=== PATIENT | male | born 1940 | race Caucasian/White ===

== ENCOUNTER → 2018-09-01 | Day surgery (SDC) | payer MEDICARE, OTHER ==
[~2018-09-01] MED LIST: ATORVASTATIN CA20 MG PO; BUMETANIDE1 MG PO; CALCIUM 500+D1 EACH PO; COUMADIN5 MG PO; DOXAZOSIN MESYLA2 MG PO; FENTANYL CITRATE/PF 100MCG/2 ML INJ ONE; FINASTERIDE5 MG PO; GLIMEPIRIDE2 MG PO; LANSOPRAZOLE30 MG PO; LEVEMIR100 UNIT/1 SC; LISINOPRIL10 MG PO; METFORMIN HCL500 MG PO; METOLAZONE10 MG PO; MIDAZOLAM HCL 2 MG/2 ML VIAL ONE; OR PHACO EYE KIT ONE; POTASSIUM CHLO20 ME1 PO; PREOP PHACO EYE KIT ONE; TAMSULOSIN HCL0.4 MG PO; VICTOZA 3-0.6 MG/0.1 SC; VICTOZA SC; WARFARIN SODIU2.5 MG PO
--- OUTSIDE RECORDS SUMMARY | 2018-09-01 10:44 | XMS REPORT | Continuity of Care Document ---
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 Name Role Phone [employer] Information Spare to Share Unavailable Unavailable Problems Problem Status Onset Date Classification Date Reported Comments Source SPLIT NIGHT 30009 Active 12/29/[address] [facility] [id number] Active 05/12/[address] [facility] FIRST [id number] Active 04/07/[address] [facility] OBSTRUCTIVE SLEEP APNEA (ADULT) (PEDIATR Active [facility] Medications No Data Provided for This Section Allergies, Adverse Reactions, Alerts No Known Medication Allergies Immunizations No Data Provided for This Section Results No Data Provided for This Section Pathology Reports No Data Provided for This Section Diagnostic Reports No Data Provided for This Section Consultation Notes No Data Provided for This Section Discharge Summaries No Data Provided for This Section History and Physicals No Data Provided for This Section Vital Signs No Data Provided for This Section Encounters Location Location Details Encounter Type Encounter Number Reason For Visit Attending Provider ADM Date DC Date Status Source [facility] Outpatient [id number] Non Physician 04/12/2015 04/12/2015 [facility] Outpatient [id number] Stephen Bryan 05/14/2015 05/14/2015 [facility] Outpatient [id number] Stephen Randi 01/02/2017 01/02/[address] [facility] Procedures No Data Provided for This Section Assessment and Plan No Data Provided for This Section Plan of Care No Data Provided for This Section Social History Social History Date Source No data available for this section 01/02/[address] [facility] Family History No Data Provided for This Section Advance Directives No Data Provided for This Section Functional Status No Data Provided for This Section
--- OUTSIDE RECORDS SUMMARY | 2018-09-01 10:45 | XMS REPORT | Summary of Care ---
Author Author [facility] Organization [facility] Address Unknown Phone Unavailable Encounter HQ Encntr_alias(FIN) [id number] Date(s): 01/01/17 - 01/01/17 [facility] [address] [place] [address]- [phone] Discharge Disposition: Home or Self Care Attending Physician: Stephen Bryan MD Referring Physician: Stephen Bryan MD Vital Signs No data available for this section Problem List No data available for this section Allergies, Adverse Reactions, Alerts No data available for this section Medications No data available for this section Results No data available for this section Immunizations No data available for this section Procedures No data available for this section Social History No data available for this section Assessment and Plan No data available for this section
--- OUTSIDE RECORDS SUMMARY | 2018-09-01 10:46 | XMS REPORT | Summary of Care ---
Author Author [facility] Organization [facility] Address Unknown Phone Unavailable Encounter HQ Julio Cntr_katie(JUHI) [id number] Date(s): 04/11/15 - 04/11/15 [facility] [address] [place] [address]- Discharge Disposition: Home Attending Physician: Physician, Non Associated MD Vital Signs No data available for [...]
--- OUTSIDE RECORDS SUMMARY | 2018-09-01 10:46 | XMS REPORT | Summary of Care ---
Author Author [facility] Organization [facility] Address Unknown Phone Unavailable Encounter HQ Encntr_alias(JUHI) [id number] Date(s): 05/13/15 - 05/13/15 [facility] [address] [place] [address]- Discharge Disposition: Home Attending Physician: Stephen Bryan MD Referring Physician: [...]
--- OUTSIDE RECORDS SUMMARY | 2018-09-01 10:49 | XMS REPORT ---
[facility] Address Unknown Phone Unavailable Care Team Providers Care Edger Automatic Name Role Phone Domo BOOKER Unavailable Unavailable Payers Payer Name Policy Type Policy Number Effective Date Expiration Date Problems This patient has no known problems. Allergies, Adverse Reactions, Alerts Allergy Name Allergy Type Status Severity Reaction(s) Onset Date Inactive Date Treating Clinician Comments sulfamethoxazole DA Active U 2018-04-21 00:00:00 trimethoprim DA Active U 2018-04-21 00:00:00 sulfamethoxazole DA Active U 2017-01-21 00:00:00 trimethoprim DA Active U 2017-01-21 00:00:00 MYCIN DA Active U 2016-04-16 00:00:00 Medications This patient has no known medications. Results Test Description Test Time Test Comments Text Results Atomic Results Result Comments GLUBED 2018-05-11 15:52:00 GLUBED (test code=GLUBED) 225 mg/dL 74-106 Performed by certified hyster machine operator at [facility] [id number] 10:46:00* Test Item Value Reference Range Comments GLUBED (test code=GLUBED) 338 mg/dL 74-106 Performed by certified hyster machine operator at [facility] [id number] 06:30:00* Test Item Value Reference Range Comments GLUBED (test code=GLUBED) 195 mg/dL 74-106 [facility] PROTHROMBIN [id number] 06:15:00* Test Item Value Reference Range Comments PROTHROMBIN TIME PATIENT (test code=PTP) 21.2 seconds 9.0-14.0 INTERNATIONAL NORMAL RATIO (test code=INR) 1.8 0.8-1.2 The therapeutic range for oral anticoagulant therapy formost indications is an international normalized ratio (INR)of between 2.0 and 3.0. 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 YLIST ANTICOAGULANTS COUMADINCBC W/AUTO DIFF 2018-05-11 05:52:00* Test Item Value Reference Range Comments WHITE BLOOD CELL (test code=WBC) 6.4 K/mm3 4.5-12.5 RED BLOOD CELL (test code=RBC) 3.20 mill/mm3 4.0-5.8 HEMOGLOBIN (test code=HGB) 8.6 gram/dL 13.0-17.5 HEMATOCRIT (test code=HCT) 28.7 % 42.0-52.0 MEAN CELL VOLUME (test code=MCV) 89.7 fL 80-98 MEAN CELL HGB (test code=MCH) 26.9 picogram 27.0-33.0 MEAN CELL HGB CONCETRATION (test code=MCHC) 30.0 gram/dL 33.0-36.0 RED CELL DISTRIBUTION WIDTH (test code=RDW) 16.6 % 11.6-16.2 RED CELL DISTRIBUTION WIDTH SD (test code=RDW-SD) 54.3 fL 37.0-51.0 PLATELET COUNT (test code=PLT) 384 K/mm3 150-450 MEAN PLATELET VOLUME (test code=MPV) 9.2 fL 6.7-11.0 NEUTROPHIL % (test code=NT%) 58.3 % 39.0-69.0 IMMATURE GRANULOCYTE % (test code=IG%) 0.5 % 0.0-5.0 LYMPHOCYTE % (test code=LY%) 25.3 % 25.0-55.0 MONOCYTE % (test code=MO%) 11.5 % 0.0-10.0 EOSINOPHIL % (test code=EO%) 3.9 % 0.0-5.0 BASOPHIL % (test code=BA%) 0.5 % 0.0-1.0 NUCLEATED RBC % (test code=NRBC%) 0.0 % 0-0 NEUTROPHIL # (test code=NT#) 3.71 K/mm3 1.8-7.7 IMMATURE GRANULOCYTE # (test code=IG#) 0.03 x10 3/uL 0-0.03 LYMPHOCYTE # (test code=LY#) 1.61 K/mm3 1.0-5.0 MONOCYTE # (test code=MO#) 0.73 K/mm3 0-0.8 EOSINOPHIL # (test code=EO#) 0.25 K/mm3 0.0-0.5 BASOPHIL # (test code=BA#) 0.03 K/mm3 0.0-0.2 NUCLEATED RBC # (test code=NRBC#) 0.00 K/mm3 0.0-0.1 [id number] 21:31:00* Test Item Value Reference Range Comments GLUBED (test code=GLUBED) 268 mg/dL 74-106 [facility] PROTHROMBIN [id number] 16:24:00* Test Item Value Reference Range Comments PROTHROMBIN TIME PATIENT (test code=PTP) 19.9 seconds 9.0-14.0 INTERNATIONAL NORMAL RATIO (test code=INR) 1.7 0.8-1.2 The therapeutic range for oral anticoagulant therapy formost indications is an international normalized ratio (INR)of between 2.0 and 3.0. 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 YLIST ANTICOAGULANTS [id number] 15:11:00* Test Item Value Reference Range Comments GLUBED (test code=GLUBED) 251 mg/dL 74-106 Performed by certified hyster machine operator at [facility] [id number] 12:24:00* Test Item Value Reference Range Comments GLUBED (test code=GLUBED) 254 mg/dL 74-106 Performed by certified hyster machine operator at [facility] CBC W/AUTO [id number] 09:37:00* Test Item Value Reference Range Comments WHITE BLOOD CELL (test code=WBC) 6.2 K/mm3 4.5-12.5 RED BLOOD CELL (test code=RBC) 3.08 mill/mm3 4.0-5.8 HEMOGLOBIN (test code=HGB) 8.3 gram/dL 13.0-17.5 HEMATOCRIT (test code=HCT) 27.1 % 42.0-52.0 MEAN CELL VOLUME (test code=MCV) 88.0 fL 80-98 MEAN CELL HGB (test code=MCH) 26.9 picogram 27.0-33.0 MEAN CELL HGB CONCETRATION (test code=MCHC) 30.6 gram/dL 33.0-36.0 RED CELL DISTRIBUTION WIDTH (test code=RDW) 16.2 % 11.6-16.2 RED CELL DISTRIBUTION WIDTH SD (test code=RDW-SD) 51.1 fL 37.0-51.0 PLATELET COUNT (test code=PLT) 355 K/mm3 150-450 MEAN PLATELET VOLUME (test code=MPV) 9.1 fL 6.7-11.0 NEUTROPHIL % (test code=NT%) 68.8 % 39.0-69.0 IMMATURE GRANULOCYTE % (test code=IG%) 0.3 % 0.0-5.0 LYMPHOCYTE % (test code=LY%) 19.5 % 25.0-55.0 MONOCYTE % (test code=MO%) 8.5 % 0.0-10.0 EOSINOPHIL % (test code=EO%) 2.6 % 0.0-5.0 BASOPHIL % (test code=BA%) 0.3 % 0.0-1.0 NUCLEATED RBC % (test code=NRBC%) 0.0 % 0-0 NEUTROPHIL # (test code=NT#) 4.23 K/mm3 1.8-7.7 IMMATURE GRANULOCYTE # (test code=IG#) 0.02 x10 3/uL 0-0.03 LYMPHOCYTE # (test code=LY#) 1.20 K/mm3 1.0-5.0 MONOCYTE # (test code=MO#) 0.52 K/mm3 0-0.8 EOSINOPHIL # (test code=EO#) 0.16 K/mm3 0.0-0.5 BASOPHIL # (test code=BA#) 0.02 K/mm3 0.0-0.2 NUCLEATED RBC # (test code=NRBC#) 0.00 K/mm3 0.0-0.1 PROTHROMBIN [id number] 08:24:00* Test Item Value Reference Range Comments PROTHROMBIN TIME PATIENT (test code=PTP) 20.3 seconds 9.0-14.0 INTERNATIONAL NORMAL RATIO (test code=INR) 1.7 0.8-1.2 The therapeutic range for oral anticoagulant therapy formost indications is an international normalized ratio (INR)of between 2.0 and 3.0. 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 YLIST ANTICOAGULANTS [id number] 06:26:00* Test Item Value Reference Range Comments GLUBED (test code=GLUBED) 218 mg/dL 74-106 Performed by certified hyster machine operator at [facility] [id number] 22:09:00* Test Item Value Reference Range Comments GLUBED (test code=GLUBED) 256 mg/dL 74-106 Performed by certified hyster machine operator at [facility] PROTHROMBIN [id number] 17:34:00* Test Item Value Reference Range Comments PROTHROMBIN TIME PATIENT (test code=PTP) 17.8 seconds 9.0-14.0 INTERNATIONAL NORMAL RATIO (test code=INR) 1.5 0.8-1.2 The therapeutic range for oral anticoagulant therapy formost indications is an international normalized ratio (INR)of between 2.0 and 3.0. 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 YLIST ANTICOAGULANTS [id number] 16:07:00* Test Item Value Reference Range Comments GLUBED (test code=GLUBED) 241 mg/dL 74-106 Performed by certified hyster machine operator at [facility] [id number] 10:51:00* Test Item Value Reference Range Comments GLUBED (test code=GLUBED) 376 mg/dL 74-106 Performed by certified hyster machine operator at [facility] [id number] 05:46:00* Test Item Value Reference Range Comments GLUBED (test code=GLUBED) 261 mg/dL 74-106 Performed by certified hyster machine operator at [facility] PROTHROMBIN [id number] 05:23:00* Test Item Value Reference Range Comments PROTHROMBIN TIME PATIENT (test code=PTP) 17.2 seconds 9.0-14.0 INTERNATIONAL NORMAL RATIO (test code=INR) 1.5 0.8-1.2 The therapeutic range for oral anticoagulant therapy formost indications is an international normalized ratio (INR)of between 2.0 and 3.0. 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 YLIST ANTICOAGULANTS COUMADINCBC W/MANUAL DIFF 2018-05-09 05:17:00* Test Item Value Reference Range Comments WHITE BLOOD CELL (test code=WBC) 5.9 K/mm3 4.5-12.5 RED BLOOD CELL (test code=RBC) 3.09 mill/mm3 4.0-5.8 HEMOGLOBIN (test code=HGB) 8.1 gram/dL 13.0-17.5 HEMATOCRIT (test code=HCT) 27.0 % 42.0-52.0 MEAN CELL VOLUME (test code=MCV) 87.4 fL 80-98 MEAN CELL HGB (test code=MCH) 26.2 picogram 27.0-33.0 MEAN CELL HGB CONCETRATION (test code=MCHC) 30.0 gram/dL 33.0-36.0 RED CELL DISTRIBUTION WIDTH (test code=RDW) 15.8 % 11.6-16.2 RED CELL DISTRIBUTION WIDTH SD (test code=RDW-SD) 50.0 fL 37.0-51.0 PLATELET COUNT (test code=PLT) 350 K/mm3 150-450 MEAN PLATELET VOLUME (test code=MPV) 9.3 fL 6.7-11.0 IMMATURE GRANULOCYTE % (test code=IG%) 0.3 % 0.0-5.0 NUCLEATED RBC % (test code=NRBC%) 0.0 % 0-0 NEUTROPHIL # (test code=NT#) 3.57 K/mm3 1.8-7.7 IMMATURE GRANULOCYTE # (test code=IG#) 0.02 x10 3/uL 0-0.03 LYMPHOCYTE # (test code=LY#) 1.46 K/mm3 1.0-5.0 MONOCYTE # (test code=MO#) 0.60 K/mm3 0-0.8 EOSINOPHIL # (test code=EO#) 0.23 K/mm3 0.0-0.5 BASOPHIL # (test code=BA#) 0.01 K/mm3 0.0-0.2 NUCLEATED RBC # (test code=NRBC#) 0.00 K/mm3 0.0-0.1 MANUAL DIFF REQUIRED (test code=MDIFF) YES STAIN ACCEPTABILITY (test code=STN ACCEPTABLE) STAIN ACCEPTABLE TOTAL CELLS COUNTED (test code=TCC) 115 #CELLS SEGMENTED NEUTROPHILS (test code=SEG) 69.3 % 39-69 BAND NEUTROPHIL (test code=BAND) 0 % 0-10 LYMPHOCYTE (test code=LYMPH) 20.2 % 25-55 REACTIVE LYMPH (test code=RELYMPH) 0 % MONOCYTE (test code=MON) 3.5 % 0-10 EOSINOPHIL (test code=EOS) 5.2 % 0.0-5.0 BASOPHIL (test code=BASO) 0.9 % 0-1.0 METAMYELOCYTE (test code=META) 0 % 0-0 MYELOCYTE (test code=MYELO) 0 % 0.0-0.0 PROMYELOCYTE (test code=PROM) 0 % 0-0 POLYCHROMASIA (test code=POLC) 3+ ANISOCYTOSIS (test code=ANISO) 1+ MICROCYTOSIS (test code=MICR) 1+ PLATELET ESTIMATE (test code=PLTEST) ADEQUATE PLATELET MORPHOLOGY (test code=PLTMORPH) NORMAL IMMATURE FORMS (test code=IMMAT) 0.9 % CBC W/MANUAL [id number] 05:03:00* Test Item Value Reference Range Comments WHITE BLOOD CELL (test code=WBC) 5.9 K/mm3 4.5-12.5 RED BLOOD CELL (test code=RBC) 3.09 mill/mm3 4.0-5.8 HEMOGLOBIN (test code=HGB) 8.1 gram/dL 13.0-17.5 HEMATOCRIT (test code=HCT) 27.0 % 42.0-52.0 MEAN CELL VOLUME (test code=MCV) 87.4 fL 80-98 MEAN CELL HGB (test code=MCH) 26.2 picogram 27.0-33.0 MEAN CELL HGB CONCETRATION (test code=MCHC) 30.0 gram/dL 33.0-36.0 RED CELL DISTRIBUTION WIDTH (test code=RDW) 15.8 % 11.6-16.2 RED CELL DISTRIBUTION WIDTH SD (test code=RDW-SD) 50.0 fL 37.0-51.0 PLATELET COUNT (test code=PLT) 350 K/mm3 150-450 MEAN PLATELET VOLUME (test code=MPV) 9.3 fL 6.7-11.0 IMMATURE GRANULOCYTE % (test code=IG%) 0.3 % 0.0-5.0 NUCLEATED RBC % (test code=NRBC%) 0.0 % 0-0 NEUTROPHIL # (test code=NT#) 3.57 K/mm3 1.8-7.7 IMMATURE GRANULOCYTE # (test code=IG#) 0.02 x10 3/uL 0-0.03 LYMPHOCYTE # (test code=LY#) 1.46 K/mm3 1.0-5.0 MONOCYTE # (test code=MO#) 0.60 K/mm3 0-0.8 EOSINOPHIL # (test code=EO#) 0.23 K/mm3 0.0-0.5 BASOPHIL # (test code=BA#) 0.01 K/mm3 0.0-0.2 NUCLEATED RBC # (test code=NRBC#) 0.00 K/mm3 0.0-0.1 MANUAL DIFF REQUIRED (test code=MDIFF) YES STAIN ACCEPTABILITY (test code=STN ACCEPTABLE) TOTAL CELLS COUNTED (test code=TCC) #CELLS SEGMENTED NEUTROPHILS (test code=SEG) % 39-69 LYMPHOCYTE (test code=LYMPH) % 25-55 MONOCYTE (test code=MON) % 0-10 EOSINOPHIL (test code=EOS) % 0.0-5.0 CABOT RINGS (test code=CAB) MORPHOLOGY COMMENT (test code=MOC) PLATELET ESTIMATE (test code=PLTEST) PLATELET MORPHOLOGY (test code=PLTMORPH) CBC W/MANUAL [id number] 05:03:00* Test Item Value Reference Range Comments WHITE BLOOD CELL (test code=WBC) 5.9 K/mm3 4.5-12.5 RED BLOOD CELL (test code=RBC) 3.09 mill/mm3 4.0-5.8 HEMOGLOBIN (test code=HGB) 8.1 gram/dL 13.0-17.5 HEMATOCRIT (test code=HCT) 27.0 % 42.0-52.0 MEAN CELL VOLUME (test code=MCV) 87.4 fL 80-98 MEAN CELL HGB (test code=MCH) 26.2 picogram 27.0-33.0 MEAN CELL HGB CONCETRATION (test code=MCHC) 30.0 gram/dL 33.0-36.0 RED CELL DISTRIBUTION WIDTH (test code=RDW) 15.8 % 11.6-16.2 RED CELL DISTRIBUTION WIDTH SD (test code=RDW-SD) 50.0 fL 37.0-51.0 PLATELET COUNT (test code=PLT) 350 K/mm3 150-450 MEAN PLATELET VOLUME (test code=MPV) 9.3 fL 6.7-11.0 IMMATURE GRANULOCYTE % (test code=IG%) 0.3 % 0.0-5.0 NUCLEATED RBC % (test code=NRBC%) 0.0 % 0-0 NEUTROPHIL # (test code=NT#) 3.57 K/mm3 1.8-7.7 IMMATURE GRANULOCYTE # (test code=IG#) 0.02 x10 3/uL 0-0.03 LYMPHOCYTE # (test code=LY#) 1.46 K/mm3 1.0-5.0 MONOCYTE # (test code=MO#) 0.60 K/mm3 0-0.8 EOSINOPHIL # (test code=EO#) 0.23 K/mm3 0.0-0.5 BASOPHIL # (test code=BA#) 0.01 K/mm3 0.0-0.2 NUCLEATED RBC # (test code=NRBC#) 0.00 K/mm3 0.0-0.1 MANUAL DIFF REQUIRED (test code=MDIFF) YES STAIN ACCEPTABILITY (test code=STN ACCEPTABLE) TOTAL CELLS COUNTED (test code=TCC) #CELLS SEGMENTED NEUTROPHILS (test code=SEG) % 39-69 LYMPHOCYTE (test code=LYMPH) % 25-55 MONOCYTE (test code=MON) % 0-10 EOSINOPHIL (test code=EOS) % 0.0-5.0 CABOT RINGS (test code=CAB) MORPHOLOGY COMMENT (test code=MOC) PLATELET ESTIMATE (test code=PLTEST) PLATELET MORPHOLOGY (test code=PLTMORPH) CBC W/MANUAL [id number] 05:03:00* Test Item Value Reference Range Comments WHITE BLOOD CELL (test code=WBC) 5.9 K/mm3 4.5-12.5 RED BLOOD CELL (test code=RBC) 3.09 mill/mm3 4.0-5.8 HEMOGLOBIN (test code=HGB) 8.1 gram/dL 13.0-17.5 HEMATOCRIT (test code=HCT) 27.0 % 42.0-52.0 MEAN CELL VOLUME (test code=MCV) 87.4 fL 80-98 MEAN CELL HGB (test code=MCH) 26.2 picogram 27.0-33.0 MEAN CELL HGB CONCETRATION (test code=MCHC) 30.0 gram/dL 33.0-36.0 RED CELL DISTRIBUTION WIDTH (test code=RDW) 15.8 % 11.6-16.2 RED CELL DISTRIBUTION WIDTH SD (test code=RDW-SD) 50.0 fL 37.0-51.0 PLATELET COUNT (test code=PLT) 350 K/mm3 150-450 MEAN PLATELET VOLUME (test code=MPV) 9.3 fL 6.7-11.0 IMMATURE GRANULOCYTE % (test code=IG%) 0.3 % 0.0-5.0 NUCLEATED RBC % (test code=NRBC%) 0.0 % 0-0 NEUTROPHIL # (test code=NT#) 3.57 K/mm3 1.8-7.7 IMMATURE GRANULOCYTE # (test code=IG#) 0.02 x10 3/uL 0-0.03 LYMPHOCYTE # (test code=LY#) 1.46 K/mm3 1.0-5.0 MONOCYTE # (test code=MO#) 0.60 K/mm3 0-0.8 EOSINOPHIL # (test code=EO#) 0.23 K/mm3 0.0-0.5 BASOPHIL # (test code=BA#) 0.01 K/mm3 0.0-0.2 NUCLEATED RBC # (test code=NRBC#) 0.00 K/mm3 0.0-0.1 MANUAL DIFF REQUIRED (test code=MDIFF) YES STAIN ACCEPTABILITY (test code=STN ACCEPTABLE) TOTAL CELLS COUNTED (test code=TCC) #CELLS SEGMENTED NEUTROPHILS (test code=SEG) % 39-69 LYMPHOCYTE (test code=LYMPH) % 25-55 MONOCYTE (test code=MON) % 0-10 EOSINOPHIL (test code=EOS) % 0.0-5.0 MORPHOLOGY COMMENT (test code=MOC) PLATELET ESTIMATE (test code=PLTEST) PLATELET MORPHOLOGY (test code=PLTMORPH) CBC W/MANUAL [id number] 05:03:00* Test Item Value Reference Range Comments WHITE BLOOD CELL (test code=WBC) 5.9 K/mm3 4.5-12.5 RED BLOOD CELL (test code=RBC) 3.09 mill/mm3 4.0-5.8 HEMOGLOBIN (test code=HGB) 8.1 gram/dL 13.0-17.5 HEMATOCRIT (test code=HCT) 27.0 % 42.0-52.0 MEAN CELL VOLUME (test code=MCV) 87.4 fL 80-98 MEAN CELL HGB (test code=MCH) 26.2 picogram 27.0-33.0 MEAN CELL HGB CONCETRATION (test code=MCHC) 30.0 gram/dL 33.0-36.0 RED CELL DISTRIBUTION WIDTH (test code=RDW) 15.8 % 11.6-16.2 RED CELL DISTRIBUTION WIDTH SD (test code=RDW-SD) 50.0 fL 37.0-51.0 PLATELET COUNT (test code=PLT) 350 K/mm3 150-450 MEAN PLATELET VOLUME (test code=MPV) 9.3 fL 6.7-11.0 IMMATURE GRANULOCYTE % (test code=IG%) 0.3 % 0.0-5.0 NUCLEATED RBC % (test code=NRBC%) 0.0 % 0-0 NEUTROPHIL # (test code=NT#) 3.57 K/mm3 1.8-7.7 IMMATURE GRANULOCYTE # (test code=IG#) 0.02 x10 3/uL 0-0.03 LYMPHOCYTE # (test code=LY#) 1.46 K/mm3 1.0-5.0 MONOCYTE # (test code=MO#) 0.60 K/mm3 0-0.8 EOSINOPHIL # (test code=EO#) 0.23 K/mm3 0.0-0.5 BASOPHIL # (test code=BA#) 0.01 K/mm3 0.0-0.2 NUCLEATED RBC # (test code=NRBC#) 0.00 K/mm3 0.0-0.1 MANUAL DIFF REQUIRED (test code=MDIFF) YES STAIN ACCEPTABILITY (test code=STN ACCEPTABLE) TOTAL CELLS COUNTED (test code=TCC) #CELLS SEGMENTED NEUTROPHILS (test code=SEG) % 39-69 LYMPHOCYTE (test code=LYMPH) % 25-55 MONOCYTE (test code=MON) % 0-10 MORPHOLOGY COMMENT (test code=MOC) PLATELET ESTIMATE (test code=PLTEST) PLATELET MORPHOLOGY (test code=PLTMORPH) CBC W/MANUAL [id number] 05:03:00* Test Item Value Reference Range Comments WHITE BLOOD CELL (test code=WBC) 5.9 K/mm3 4.5-12.5 RED BLOOD CELL (test code=RBC) 3.09 mill/mm3 4.0-5.8 HEMOGLOBIN (test code=HGB) 8.1 gram/dL 13.0-17.5 HEMATOCRIT (test code=HCT) 27.0 % 42.0-52.0 MEAN CELL VOLUME (test code=MCV) 87.4 fL 80-98 MEAN CELL HGB (test code=MCH) 26.2 picogram 27.0-33.0 MEAN CELL HGB CONCETRATION (test code=MCHC) 30.0 gram/dL 33.0-36.0 RED CELL DISTRIBUTION WIDTH (test code=RDW) 15.8 % 11.6-16.2 RED CELL DISTRIBUTION WIDTH SD (test code=RDW-SD) 50.0 fL 37.0-51.0 PLATELET COUNT (test code=PLT) 350 K/mm3 150-450 MEAN PLATELET VOLUME (test code=MPV) 9.3 fL 6.7-11.0 IMMATURE GRANULOCYTE % (test code=IG%) 0.3 % 0.0-5.0 NUCLEATED RBC % (test code=NRBC%) 0.0 % 0-0 NEUTROPHIL # (test code=NT#) 3.57 K/mm3 1.8-7.7 IMMATURE GRANULOCYTE # (test code=IG#) 0.02 x10 3/uL 0-0.03 LYMPHOCYTE # (test code=LY#) 1.46 K/mm3 1.0-5.0 MONOCYTE # (test code=MO#) 0.60 K/mm3 0-0.8 EOSINOPHIL # (test code=EO#) 0.23 K/mm3 0.0-0.5 BASOPHIL # (test code=BA#) 0.01 K/mm3 0.0-0.2 NUCLEATED RBC # (test code=NRBC#) 0.00 K/mm3 0.0-0.1 MANUAL DIFF REQUIRED (test code=MDIFF) YES STAIN ACCEPTABILITY (test code=STN ACCEPTABLE) TOTAL CELLS COUNTED (test code=TCC) #CELLS SEGMENTED NEUTROPHILS (test code=SEG) % 39-69 LYMPHOCYTE (test code=LYMPH) % 25-55 MONOCYTE (test code=MON) % 0-10 EOSINOPHIL (test code=EOS) % 0.0-5.0 CABOT RINGS (test code=CAB) MORPHOLOGY COMMENT (test code=MOC) PLATELET ESTIMATE (test code=PLTEST) PLATELET MORPHOLOGY (test code=PLTMORPH) [id number] 20:35:00* Test Item Value Reference Range Comments GLUBED (test code=GLUBED) 245 mg/dL 74-106 Performed by certified hyster machine operator at [facility] [id number] 16:36:00* Test Item Value Reference Range Comments GLUBED (test code=GLUBED) 270 mg/dL 74-106 Performed by certified hyster machine operator at [facility] PROTHROMBIN [id number] 14:29:00* Test Item Value Reference Range Comments PROTHROMBIN TIME PATIENT (test code=PTP) 16.6 seconds 9.0-14.0 INTERNATIONAL NORMAL RATIO (test code=INR) 1.4 0.8-1.2 The therapeutic range for oral anticoagulant therapy formost indications is an international normalized ratio (INR)of between 2.0 and 3.0. 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 YLIST ANTICOAGULANTS [id number] 13:15:00* Test Item Value Reference Range Comments GLUBED (test code=GLUBED) 301 mg/dL 74-106 Performed by certified hyster machine operator at [facility] CBC W/AUTO [id number] 07:58:00* Test Item Value Reference Range Comments WHITE BLOOD CELL (test code=WBC) 6.7 K/mm3 4.5-12.5 RED BLOOD CELL (test code=RBC) 3.22 mill/mm3 4.0-5.8 HEMOGLOBIN (test code=HGB) 8.2 gram/dL 13.0-17.5 HEMATOCRIT (test code=HCT) 28.7 % 42.0-52.0 MEAN CELL VOLUME (test code=MCV) 89.1 fL 80-98 MEAN CELL HGB (test code=MCH) 25.5 picogram 27.0-33.0 MEAN CELL HGB CONCETRATION (test code=MCHC) 28.6 gram/dL 33.0-36.0 RED CELL DISTRIBUTION WIDTH (test code=RDW) 15.9 % 11.6-16.2 RED CELL DISTRIBUTION WIDTH SD (test code=RDW-SD) 51.1 fL 37.0-51.0 PLATELET COUNT (test code=PLT) 316 K/mm3 150-450 MEAN PLATELET VOLUME (test code=MPV) 9.5 fL 6.7-11.0 NEUTROPHIL % (test code=NT%) 65.0 % 39.0-69.0 IMMATURE GRANULOCYTE % (test code=IG%) 0.3 % 0.0-5.0 LYMPHOCYTE % (test code=LY%) 20.2 % 25.0-55.0 MONOCYTE % (test code=MO%) 10.1 % 0.0-10.0 EOSINOPHIL % (test code=EO%) 4.0 % 0.0-5.0 BASOPHIL % (test code=BA%) 0.4 % 0.0-1.0 NUCLEATED RBC % (test code=NRBC%) 0.0 % 0-0 NEUTROPHIL # (test code=NT#) 4.37 K/mm3 1.8-7.7 IMMATURE GRANULOCYTE # (test code=IG#) 0.02 x10 3/uL 0-0.03 LYMPHOCYTE # (test code=LY#) 1.36 K/mm3 1.0-5.0 MONOCYTE # (test code=MO#) 0.68 K/mm3 0-0.8 EOSINOPHIL # (test code=EO#) 0.27 K/mm3 0.0-0.5 BASOPHIL # (test code=BA#) 0.03 K/mm3 0.0-0.2 NUCLEATED RBC # (test code=NRBC#) 0.00 K/mm3 0.0-0.1 MANUAL DIFF REQUIRED (test code=MDIFF) NO, ONLY SCAN NEEDED DIFFERENTIAL [id number] 07:58:00* Test Item Value Reference Range Comments STAIN ACCEPTABILITY (test code=STN ACCEPTABLE) STAIN ACCEPTABLE ANISOCYTOSIS (test code=ANISO) 1+ MACROCYTOSIS (test code=MACR) 1+ PLATELET ESTIMATE (test code=PLTEST) ADEQUATE PLATELET MORPHOLOGY (test code=PLTMORPH) NORMAL PROTHROMBIN [id number] 06:58:00* Test Item Value Reference Range Comments PROTHROMBIN TIME PATIENT (test code=PTP) 15.4 seconds 9.0-14.0 INTERNATIONAL NORMAL RATIO (test code=INR) 1.3 0.8-1.2 The therapeutic range for oral anticoagulant therapy formost indications is an international normalized ratio (INR)of between 2.0 and 3.0. 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 YLIST ANTICOAGULANTS COUMADINCBC W/AUTO DIFF 2018-05-08 06:56:00* Test Item Value Reference Range Comments WHITE BLOOD CELL (test code=WBC) 6.7 K/mm3 4.5-12.5 RED BLOOD CELL (test code=RBC) 3.22 mill/mm3 4.0-5.8 HEMOGLOBIN (test code=HGB) 8.2 gram/dL 13.0-17.5 HEMATOCRIT (test code=HCT) 28.7 % 42.0-52.0 MEAN CELL VOLUME (test code=MCV) 89.1 fL 80-98 MEAN CELL HGB (test code=MCH) 25.5 picogram 27.0-33.0 MEAN CELL HGB CONCETRATION (test code=MCHC) 28.6 gram/dL 33.0-36.0 RED CELL DISTRIBUTION WIDTH (test code=RDW) 15.9 % 11.6-16.2 RED CELL DISTRIBUTION WIDTH SD (test code=RDW-SD) 51.1 fL 37.0-51.0 PLATELET COUNT (test code=PLT) 316 K/mm3 150-450 MEAN PLATELET VOLUME (test code=MPV) 9.5 fL 6.7-11.0 NEUTROPHIL % (test code=NT%) 65.0 % 39.0-69.0 IMMATURE GRANULOCYTE % (test code=IG%) 0.3 % 0.0-5.0 LYMPHOCYTE % (test code=LY%) 20.2 % 25.0-55.0 MONOCYTE % (test code=MO%) 10.1 % 0.0-10.0 EOSINOPHIL % (test code=EO%) 4.0 % 0.0-5.0 BASOPHIL % (test code=BA%) 0.4 % 0.0-1.0 NUCLEATED RBC % (test code=NRBC%) 0.0 % 0-0 NEUTROPHIL # (test code=NT#) 4.37 K/mm3 1.8-7.7 IMMATURE GRANULOCYTE # (test code=IG#) 0.02 x10 3/uL 0-0.03 LYMPHOCYTE # (test code=LY#) 1.36 K/mm3 1.0-5.0 MONOCYTE # (test code=MO#) 0.68 K/mm3 0-0.8 EOSINOPHIL # (test code=EO#) 0.27 K/mm3 0.0-0.5 BASOPHIL # (test code=BA#) 0.03 K/mm3 0.0-0.2 NUCLEATED RBC # (test code=NRBC#) 0.00 K/mm3 0.0-0.1 MANUAL DIFF REQUIRED (test code=MDIFF) NO, ONLY SCAN NEEDED DIFFERENTIAL [id number] 06:56:00* Test Item Value Reference Range Comments STAIN ACCEPTABILITY (test code=STN ACCEPTABLE) CABOT RINGS (test code=CAB) MORPHOLOGY COMMENT (test code=MOC) PLATELET ESTIMATE (test code=PLTEST) PLATELET MORPHOLOGY (test code=PLTMORPH) CBC W/AUTO [id number] 06:56:00* Test Item Value Reference Range Comments WHITE BLOOD CELL (test code=WBC) 6.7 K/mm3 4.5-12.5 RED BLOOD CELL (test code=RBC) 3.22 mill/mm3 4.0-5.8 HEMOGLOBIN (test code=HGB) 8.2 gram/dL 13.0-17.5 HEMATOCRIT (test code=HCT) 28.7 % 42.0-52.0 MEAN CELL VOLUME (test code=MCV) 89.1 fL 80-98 MEAN CELL HGB (test code=MCH) 25.5 picogram 27.0-33.0 MEAN CELL HGB CONCETRATION (test code=MCHC) 28.6 gram/dL 33.0-36.0 RED CELL DISTRIBUTION WIDTH (test code=RDW) 15.9 % 11.6-16.2 RED CELL DISTRIBUTION WIDTH SD (test code=RDW-SD) 51.1 fL 37.0-51.0 PLATELET COUNT (test code=PLT) 316 K/mm3 150-450 MEAN PLATELET VOLUME (test code=MPV) 9.5 fL 6.7-11.0 NEUTROPHIL % (test code=NT%) 65.0 % 39.0-69.0 IMMATURE GRANULOCYTE % (test code=IG%) 0.3 % 0.0-5.0 LYMPHOCYTE % (test code=LY%) 20.2 % 25.0-55.0 MONOCYTE % (test code=MO%) 10.1 % 0.0-10.0 EOSINOPHIL % (test code=EO%) 4.0 % 0.0-5.0 BASOPHIL % (test code=BA%) 0.4 % 0.0-1.0 NUCLEATED RBC % (test code=NRBC%) 0.0 % 0-0 NEUTROPHIL # (test code=NT#) 4.37 K/mm3 1.8-7.7 IMMATURE GRANULOCYTE # (test code=IG#) 0.02 x10 3/uL 0-0.03 LYMPHOCYTE # (test code=LY#) 1.36 K/mm3 1.0-5.0 MONOCYTE # (test code=MO#) 0.68 K/mm3 0-0.8 EOSINOPHIL # (test code=EO#) 0.27 K/mm3 0.0-0.5 BASOPHIL # (test code=BA#) 0.03 K/mm3 0.0-0.2 NUCLEATED RBC # (test code=NRBC#) 0.00 K/mm3 0.0-0.1 MANUAL DIFF REQUIRED (test code=MDIFF) NO, ONLY SCAN NEEDED DIFFERENTIAL [id number] 06:56:00* Test Item Value Reference Range Comments STAIN ACCEPTABILITY (test code=STN ACCEPTABLE) CABOT RINGS (test code=CAB) MORPHOLOGY COMMENT (test code=MOC) PLATELET ESTIMATE (test code=PLTEST) PLATELET MORPHOLOGY (test code=PLTMORPH) CBC W/AUTO [id number] 06:56:00* Test Item Value Reference Range Comments WHITE BLOOD CELL (test code=WBC) 6.7 K/mm3 4.5-12.5 RED BLOOD CELL (test code=RBC) 3.22 mill/mm3 4.0-5.8 HEMOGLOBIN (test code=HGB) 8.2 gram/dL 13.0-17.5 HEMATOCRIT (test code=HCT) 28.7 % 42.0-52.0 MEAN CELL VOLUME (test code=MCV) 89.1 fL 80-98 MEAN CELL HGB (test code=MCH) 25.5 picogram 27.0-33.0 MEAN CELL HGB CONCETRATION (test code=MCHC) 28.6 gram/dL 33.0-36.0 RED CELL DISTRIBUTION WIDTH (test code=RDW) 15.9 % 11.6-16.2 RED CELL DISTRIBUTION WIDTH SD (test code=RDW-SD) 51.1 fL 37.0-51.0 PLATELET COUNT (test code=PLT) 316 K/mm3 150-450 MEAN PLATELET VOLUME (test code=MPV) 9.5 fL 6.7-11.0 NEUTROPHIL % (test code=NT%) 65.0 % 39.0-69.0 IMMATURE GRANULOCYTE % (test code=IG%) 0.3 % 0.0-5.0 LYMPHOCYTE % (test code=LY%) 20.2 % 25.0-55.0 MONOCYTE % (test code=MO%) 10.1 % 0.0-10.0 EOSINOPHIL % (test code=EO%) 4.0 % 0.0-5.0 BASOPHIL % (test code=BA%) 0.4 % 0.0-1.0 NUCLEATED RBC % (test code=NRBC%) 0.0 % 0-0 NEUTROPHIL # (test code=NT#) 4.37 K/mm3 1.8-7.7 IMMATURE GRANULOCYTE # (test code=IG#) 0.02 x10 3/uL 0-0.03 LYMPHOCYTE # (test code=LY#) 1.36 K/mm3 1.0-5.0 MONOCYTE # (test code=MO#) 0.68 K/mm3 0-0.8 EOSINOPHIL # (test code=EO#) 0.27 K/mm3 0.0-0.5 BASOPHIL # (test code=BA#) 0.03 K/mm3 0.0-0.2 NUCLEATED RBC # (test code=NRBC#) 0.00 K/mm3 0.0-0.1 MANUAL DIFF REQUIRED (test code=MDIFF) NO, ONLY SCAN NEEDED DIFFERENTIAL [id number] 06:56:00* Test Item Value Reference Range Comments STAIN ACCEPTABILITY (test code=STN ACCEPTABLE) MORPHOLOGY COMMENT (test code=MOC) PLATELET ESTIMATE (test code=PLTEST) PLATELET MORPHOLOGY (test code=PLTMORPH) CBC W/AUTO [id number] 06:56:00* Test Item Value Reference Range Comments WHITE BLOOD CELL (test code=WBC) 6.7 K/mm3 4.5-12.5 RED BLOOD CELL (test code=RBC) 3.22 mill/mm3 4.0-5.8 HEMOGLOBIN (test code=HGB) 8.2 gram/dL 13.0-17.5 HEMATOCRIT (test code=HCT) 28.7 % 42.0-52.0 MEAN CELL VOLUME (test code=MCV) 89.1 fL 80-98 MEAN CELL HGB (test code=MCH) 25.5 picogram 27.0-33.0 MEAN CELL HGB CONCETRATION (test code=MCHC) 28.6 gram/dL 33.0-36.0 RED CELL DISTRIBUTION WIDTH (test code=RDW) 15.9 % 11.6-16.2 RED CELL DISTRIBUTION WIDTH SD (test code=RDW-SD) 51.1 fL 37.0-51.0 PLATELET COUNT (test code=PLT) 316 K/mm3 150-450 MEAN PLATELET VOLUME (test code=MPV) 9.5 fL 6.7-11.0 NEUTROPHIL % (test code=NT%) 65.0 % 39.0-69.0 IMMATURE GRANULOCYTE % (test code=IG%) 0.3 % 0.0-5.0 LYMPHOCYTE % (test code=LY%) 20.2 % 25.0-55.0 MONOCYTE % (test code=MO%) 10.1 % 0.0-10.0 EOSINOPHIL % (test code=EO%) 4.0 % 0.0-5.0 BASOPHIL % (test code=BA%) 0.4 % 0.0-1.0 NUCLEATED RBC % (test code=NRBC%) 0.0 % 0-0 NEUTROPHIL # (test code=NT#) 4.37 K/mm3 1.8-7.7 IMMATURE GRANULOCYTE # (test code=IG#) 0.02 x10 3/uL 0-0.03 LYMPHOCYTE # (test code=LY#) 1.36 K/mm3 1.0-5.0 MONOCYTE # (test code=MO#) 0.68 K/mm3 0-0.8 EOSINOPHIL # (test code=EO#) 0.27 K/mm3 0.0-0.5 BASOPHIL # (test code=BA#) 0.03 K/mm3 0.0-0.2 NUCLEATED RBC # (test code=NRBC#) 0.00 K/mm3 0.0-0.1 MANUAL DIFF REQUIRED (test code=MDIFF) NO, ONLY SCAN NEEDED DIFFERENTIAL [id number] 06:56:00* Test Item Value Reference Range Comments STAIN ACCEPTABILITY (test code=STN ACCEPTABLE) CABOT RINGS (test code=CAB) MORPHOLOGY COMMENT (test code=MOC) PLATELET ESTIMATE (test code=PLTEST) PLATELET MORPHOLOGY (test code=PLTMORPH) BASIC METABOLIC [id number] 06:51:00* Test Item Value Reference Range Comments SODIUM (test code=NA) 138 mmol/L 136-145 POTASSIUM (test code=K) 3.6 mmol/L 3.5-5.1 CHLORIDE (test code=CL) 100.0 mmol/L 98-107 CARBON DIOXIDE (test code=CO2) 31.0 mmol/L 21-32 ANION GAP (test code=GAP) 10.6 10-20 GLUCOSE (test code=GLU) 238 mg/dL 74-106 BLOOD UREA NITROGEN (test code=BUN) 21 mg/dL 7-18 GLOMERULAR FILTRATION RATE (test code=GFR) > 60 mL/min >=60 Estimated GFR by using Modified MDRD formula.Chronic kidney disease is defined as either kidney damageor GFR <60 mL/min/1.73 m2 for >3 months. CREATININE (test code=CREAT) 1.00 mg/dL 0.7-1.3 BUN/CREATININE RATIO (test code=BUN/CREA) 21.0 10-20 CALCIUM (test code=CA) 7.9 mg/dL 8.5-10.1 BASIC METABOLIC [id number] 06:42:00* Test Item Value Reference Range Comments SODIUM (test code=NA) 138 mmol/L 136-145 POTASSIUM (test code=K) 3.6 mmol/L 3.5-5.1 CHLORIDE (test code=CL) 100.0 mmol/L 98-107 CARBON DIOXIDE (test code=CO2) mmol/L 21-32 ANION GAP (test code=GAP) 10-20 GLUCOSE (test code=GLU) mg/dL 74-106 BLOOD UREA NITROGEN (test code=BUN) mg/dL 7-18 GLOMERULAR FILTRATION RATE (test code=GFR) mL/min >=60 CREATININE (test code=CREAT) mg/dL 0.7-1.3 BUN/CREATININE RATIO (test code=BUN/CREA) 10-20 CALCIUM (test code=CA) mg/dL 8.5-10.1 [id number] 04:57:00* Test Item Value Reference Range Comments GLUBED (test code=GLUBED) 219 mg/dL 74-106 Performed by certified hyster machine operator at [facility] [id number] 20:51:00* Test Item Value Reference Range Comments GLUBED (test code=GLUBED) 260 mg/dL 74-106 Performed by certified hyster machine operator at [facility] PROTHROMBIN [id number] 16:49:00* Test Item Value Reference Range Comments PROTHROMBIN TIME PATIENT (test code=PTP) 14.8 seconds 9.0-14.0 INTERNATIONAL NORMAL RATIO (test code=INR) 1.3 0.8-1.2 The therapeutic range for oral anticoagulant therapy formost indications is an international normalized ratio (INR)of between 2.0 and 3.0. 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 YLIST ANTICOAGULANTS [id number] 15:56:00* Test Item Value Reference Range Comments GLUBED (test code=GLUBED) 260 mg/dL 74-106 Performed by certified hyster machine operator at [facility] [id number] 12:32:00* Test Item Value Reference Range Comments GLUBED (test code=GLUBED) 378 mg/dL 74-106 Performed by certified hyster machine operator at [facility] PROTHROMBIN [id number] 07:49:00* Test Item Value Reference Range Comments PROTHROMBIN TIME PATIENT (test code=PTP) 14.6 seconds 9.0-14.0 INTERNATIONAL NORMAL RATIO (test code=INR) 1.2 0.8-1.2 The therapeutic range for oral anticoagulant therapy formost indications is an international normalized ratio (INR)of between 2.0 and 3.0. 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 YLIST ANTICOAGULANTS COUMADINCBC W/AUTO DIFF 2018-05-07 06:57:00* Test Item Value Reference Range Comments WHITE BLOOD CELL (test code=WBC) 6.9 K/mm3 4.5-12.5 RED BLOOD CELL (test code=RBC) 3.04 mill/mm3 4.0-5.8 HEMOGLOBIN (test code=HGB) 8.2 gram/dL 13.0-17.5 HEMATOCRIT (test code=HCT) 27.2 % 42.0-52.0 MEAN CELL VOLUME (test code=MCV) 89.5 fL 80-98 MEAN CELL HGB (test code=MCH) 27.0 picogram 27.0-33.0 MEAN CELL HGB CONCETRATION (test code=MCHC) 30.1 gram/dL 33.0-36.0 RED CELL DISTRIBUTION WIDTH (test code=RDW) 16.4 % 11.6-16.2 RED CELL DISTRIBUTION WIDTH SD (test code=RDW-SD) 53.0 fL 37.0-51.0 PLATELET COUNT (test code=PLT) 306 K/mm3 150-450 MEAN PLATELET VOLUME (test code=MPV) 9.4 fL 6.7-11.0 NEUTROPHIL % (test code=NT%) 69.7 % 39.0-69.0 IMMATURE GRANULOCYTE % (test code=IG%) 0.6 % 0.0-5.0 LYMPHOCYTE % (test code=LY%) 15.6 % 25.0-55.0 MONOCYTE % (test code=MO%) 10.0 % 0.0-10.0 EOSINOPHIL % (test code=EO%) 3.8 % 0.0-5.0 BASOPHIL % (test code=BA%) 0.3 % 0.0-1.0 NUCLEATED RBC % (test code=NRBC%) 0.0 % 0-0 NEUTROPHIL # (test code=NT#) 4.83 K/mm3 1.8-7.7 IMMATURE GRANULOCYTE # (test code=IG#) 0.04 x10 3/uL 0-0.03 LYMPHOCYTE # (test code=LY#) 1.08 K/mm3 1.0-5.0 MONOCYTE # (test code=MO#) 0.69 K/mm3 0-0.8 EOSINOPHIL # (test code=EO#) 0.26 K/mm3 0.0-0.5 BASOPHIL # (test code=BA#) 0.02 K/mm3 0.0-0.2 NUCLEATED RBC # (test code=NRBC#) 0.00 K/mm3 0.0-0.1 MANUAL DIFF REQUIRED (test code=MDIFF) NO [id number] 05:11:00* Test Item Value Reference Range Comments GLUBED (test code=GLUBED) 268 mg/dL 74-106 Performed by certified hyster machine operator at [facility] [id number] 21:08:00* Test Item Value Reference Range Comments GLUBED (test code=GLUBED) 370 mg/dL 74-106 Performed by certified hyster machine operator at [facility] [id number] 18:23:00* Test Item Value Reference Range Comments GLUBED (test code=GLUBED) 369 mg/dL 74-106 Performed by certified hyster machine operator at [facility] PROTHROMBIN [id number] 16:27:00* Test Item Value Reference Range Comments PROTHROMBIN TIME PATIENT (test code=PTP) 13.9 seconds 9.0-14.0 INTERNATIONAL NORMAL RATIO (test code=INR) 1.2 0.8-1.2 The therapeutic range for oral anticoagulant therapy formost indications is an international normalized ratio (INR)of between 2.0 and 3.0. 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 YLIST ANTICOAGULANTS [id number] 15:53:00* Test Item Value Reference Range Comments GLUBED (test code=GLUBED) 406 mg/dL 74-106 Performed by certified hyster machine operator at [facility] [id number] 12:24:00* Test Item Value Reference Range Comments GLUBED (test code=GLUBED) 394 mg/dL 74-106 Performed by certified hyster machine operator at [facility] CBC W/AUTO [id number] 05:31:00* Test Item Value Reference Range Comments WHITE BLOOD CELL (test code=WBC) 7.2 K/mm3 4.5-12.5 RED BLOOD CELL (test code=RBC) 3.39 mill/mm3 4.0-5.8 HEMOGLOBIN (test code=HGB) 8.8 gram/dL 13.0-17.5 HEMATOCRIT (test code=HCT) 30.5 % 42.0-52.0 MEAN CELL VOLUME (test code=MCV) 90.0 fL 80-98 MEAN CELL HGB (test code=MCH) 26.0 picogram 27.0-33.0 MEAN CELL HGB CONCETRATION (test code=MCHC) 28.9 gram/dL 33.0-36.0 RED CELL DISTRIBUTION WIDTH (test code=RDW) 16.5 % 11.6-16.2 RED CELL DISTRIBUTION WIDTH SD (test code=RDW-SD) 53.9 fL 37.0-51.0 PLATELET COUNT (test code=PLT) 287 K/mm3 150-450 MEAN PLATELET VOLUME (test code=MPV) 9.5 fL 6.7-11.0 NEUTROPHIL % (test code=NT%) 68.5 % 39.0-69.0 IMMATURE GRANULOCYTE % (test code=IG%) 0.6 % 0.0-5.0 LYMPHOCYTE % (test code=LY%) 17.7 % 25.0-55.0 MONOCYTE % (test code=MO%) 9.8 % 0.0-10.0 EOSINOPHIL % (test code=EO%) 3.1 % 0.0-5.0 BASOPHIL % (test code=BA%) 0.3 % 0.0-1.0 NUCLEATED RBC % (test code=NRBC%) 0.0 % 0-0 NEUTROPHIL # (test code=NT#) 4.92 K/mm3 1.8-7.7 IMMATURE GRANULOCYTE # (test code=IG#) 0.04 x10 3/uL 0-0.03 LYMPHOCYTE # (test code=LY#) 1.27 K/mm3 1.0-5.0 MONOCYTE # (test code=MO#) 0.70 K/mm3 0-0.8 EOSINOPHIL # (test code=EO#) 0.22 K/mm3 0.0-0.5 BASOPHIL # (test code=BA#) 0.02 K/mm3 0.0-0.2 NUCLEATED RBC # (test code=NRBC#) 0.00 K/mm3 0.0-0.1 MANUAL DIFF REQUIRED (test code=MDIFF) NO, ONLY SCAN NEEDED DIFFERENTIAL [id number] 05:31:00* Test Item Value Reference Range Comments STAIN ACCEPTABILITY (test code=STN ACCEPTABLE) STAIN ACCEPTABLE POLYCHROMASIA (test code=POLC) 3+ ANISOCYTOSIS (test code=ANISO) 1+ MICROCYTOSIS (test code=MICR) 1+ PLATELET ESTIMATE (test code=PLTEST) ADEQUATE PLATELET MORPHOLOGY (test code=PLTMORPH) SIZE VARIABLE [id number] 05:16:00* Test Item Value Reference Range Comments GLUBED (test code=GLUBED) 310 mg/dL 74-106 Performed by certified hyster machine operator at [facility] CBC W/AUTO [id number] 04:59:00* Test Item Value Reference Range Comments WHITE BLOOD CELL (test code=WBC) 7.2 K/mm3 4.5-12.5 RED BLOOD CELL (test code=RBC) 3.39 mill/mm3 4.0-5.8 HEMOGLOBIN (test code=HGB) 8.8 gram/dL 13.0-17.5 HEMATOCRIT (test code=HCT) 30.5 % 42.0-52.0 MEAN CELL VOLUME (test code=MCV) 90.0 fL 80-98 MEAN CELL HGB (test code=MCH) 26.0 picogram 27.0-33.0 MEAN CELL HGB CONCETRATION (test code=MCHC) 28.9 gram/dL 33.0-36.0 RED CELL DISTRIBUTION WIDTH (test code=RDW) 16.5 % 11.6-16.2 RED CELL DISTRIBUTION WIDTH SD (test code=RDW-SD) 53.9 fL 37.0-51.0 PLATELET COUNT (test code=PLT) 287 K/mm3 150-450 MEAN PLATELET VOLUME (test code=MPV) 9.5 fL 6.7-11.0 NEUTROPHIL % (test code=NT%) 68.5 % 39.0-69.0 IMMATURE GRANULOCYTE % (test code=IG%) 0.6 % 0.0-5.0 LYMPHOCYTE % (test code=LY%) 17.7 % 25.0-55.0 MONOCYTE % (test code=MO%) 9.8 % 0.0-10.0 EOSINOPHIL % (test code=EO%) 3.1 % 0.0-5.0 BASOPHIL % (test code=BA%) 0.3 % 0.0-1.0 NUCLEATED RBC % (test code=NRBC%) 0.0 % 0-0 NEUTROPHIL # (test code=NT#) 4.92 K/mm3 1.8-7.7 IMMATURE GRANULOCYTE # (test code=IG#) 0.04 x10 3/uL 0-0.03 LYMPHOCYTE # (test code=LY#) 1.27 K/mm3 1.0-5.0 MONOCYTE # (test code=MO#) 0.70 K/mm3 0-0.8 EOSINOPHIL # (test code=EO#) 0.22 K/mm3 0.0-0.5 BASOPHIL # (test code=BA#) 0.02 K/mm3 0.0-0.2 NUCLEATED RBC # (test code=NRBC#) 0.00 K/mm3 0.0-0.1 MANUAL DIFF REQUIRED (test code=MDIFF) NO, ONLY SCAN NEEDED DIFFERENTIAL [id number] 04:59:00* Test Item Value Reference Range Comments STAIN ACCEPTABILITY (test code=STN ACCEPTABLE) CABOT RINGS (test code=CAB) MORPHOLOGY COMMENT (test code=MOC) PLATELET ESTIMATE (test code=PLTEST) PLATELET MORPHOLOGY (test code=PLTMORPH) CBC W/AUTO [id number] 04:59:00* Test Item Value Reference Range Comments WHITE BLOOD CELL (test code=WBC) 7.2 K/mm3 4.5-12.5 RED BLOOD CELL (test code=RBC) 3.39 mill/mm3 4.0-5.8 HEMOGLOBIN (test code=HGB) 8.8 gram/dL 13.0-17.5 HEMATOCRIT (test code=HCT) 30.5 % 42.0-52.0 MEAN CELL VOLUME (test code=MCV) 90.0 fL 80-98 MEAN CELL HGB (test code=MCH) 26.0 picogram 27.0-33.0 MEAN CELL HGB CONCETRATION (test code=MCHC) 28.9 gram/dL 33.0-36.0 RED CELL DISTRIBUTION WIDTH (test code=RDW) 16.5 % 11.6-16.2 RED CELL DISTRIBUTION WIDTH SD (test code=RDW-SD) 53.9 fL 37.0-51.0 PLATELET COUNT (test code=PLT) 287 K/mm3 150-450 MEAN PLATELET VOLUME (test code=MPV) 9.5 fL 6.7-11.0 NEUTROPHIL % (test code=NT%) 68.5 % 39.0-69.0 IMMATURE GRANULOCYTE % (test code=IG%) 0.6 % 0.0-5.0 LYMPHOCYTE % (test code=LY%) 17.7 % 25.0-55.0 MONOCYTE % (test code=MO%) 9.8 % 0.0-10.0 EOSINOPHIL % (test code=EO%) 3.1 % 0.0-5.0 BASOPHIL % (test code=BA%) 0.3 % 0.0-1.0 NUCLEATED RBC % (test code=NRBC%) 0.0 % 0-0 NEUTROPHIL # (test code=NT#) 4.92 K/mm3 1.8-7.7 IMMATURE GRANULOCYTE # (test code=IG#) 0.04 x10 3/uL 0-0.03 LYMPHOCYTE # (test code=LY#) 1.27 K/mm3 1.0-5.0 MONOCYTE # (test code=MO#) 0.70 K/mm3 0-0.8 EOSINOPHIL # (test code=EO#) 0.22 K/mm3 0.0-0.5 BASOPHIL # (test code=BA#) 0.02 K/mm3 0.0-0.2 NUCLEATED RBC # (test code=NRBC#) 0.00 K/mm3 0.0-0.1 MANUAL DIFF REQUIRED (test code=MDIFF) NO, ONLY SCAN NEEDED DIFFERENTIAL [id number] 04:59:00* Test Item Value Reference Range Comments STAIN ACCEPTABILITY (test code=STN ACCEPTABLE) MORPHOLOGY COMMENT (test code=MOC) PLATELET ESTIMATE (test code=PLTEST) PLATELET MORPHOLOGY (test code=PLTMORPH) CBC W/AUTO [id number] 04:58:00* Test Item Value Reference Range Comments WHITE BLOOD CELL (test code=WBC) 7.2 K/mm3 4.5-12.5 RED BLOOD CELL (test code=RBC) 3.39 mill/mm3 4.0-5.8 HEMOGLOBIN (test code=HGB) 8.8 gram/dL 13.0-17.5 HEMATOCRIT (test code=HCT) 30.5 % 42.0-52.0 MEAN CELL VOLUME (test code=MCV) 90.0 fL 80-98 MEAN CELL HGB (test code=MCH) 26.0 picogram 27.0-33.0 MEAN CELL HGB CONCETRATION (test code=MCHC) 28.9 gram/dL 33.0-36.0 RED CELL DISTRIBUTION WIDTH (test code=RDW) 16.5 % 11.6-16.2 RED CELL DISTRIBUTION WIDTH SD (test code=RDW-SD) 53.9 fL 37.0-51.0 PLATELET COUNT (test code=PLT) 287 K/mm3 150-450 MEAN PLATELET VOLUME (test code=MPV) 9.5 fL 6.7-11.0 NEUTROPHIL % (test code=NT%) 68.5 % 39.0-69.0 IMMATURE GRANULOCYTE % (test code=IG%) 0.6 % 0.0-5.0 LYMPHOCYTE % (test code=LY%) 17.7 % 25.0-55.0 MONOCYTE % (test code=MO%) 9.8 % 0.0-10.0 EOSINOPHIL % (test code=EO%) 3.1 % 0.0-5.0 BASOPHIL % (test code=BA%) 0.3 % 0.0-1.0 NUCLEATED RBC % (test code=NRBC%) 0.0 % 0-0 NEUTROPHIL # (test code=NT#) 4.92 K/mm3 1.8-7.7 IMMATURE GRANULOCYTE # (test code=IG#) 0.04 x10 3/uL 0-0.03 LYMPHOCYTE # (test code=LY#) 1.27 K/mm3 1.0-5.0 MONOCYTE # (test code=MO#) 0.70 K/mm3 0-0.8 EOSINOPHIL # (test code=EO#) 0.22 K/mm3 0.0-0.5 BASOPHIL # (test code=BA#) 0.02 K/mm3 0.0-0.2 NUCLEATED RBC # (test code=NRBC#) 0.00 K/mm3 0.0-0.1 MANUAL DIFF REQUIRED (test code=MDIFF) NO, ONLY SCAN NEEDED DIFFERENTIAL [id number] 04:58:00* Test Item Value Reference Range Comments STAIN ACCEPTABILITY (test code=STN ACCEPTABLE) CABOT RINGS (test code=CAB) MORPHOLOGY COMMENT (test code=MOC) PLATELET ESTIMATE (test code=PLTEST) PLATELET MORPHOLOGY (test code=PLTMORPH) CBC W/AUTO [id number] 04:58:00* Test Item Value Reference Range Comments WHITE BLOOD CELL (test code=WBC) 7.2 K/mm3 4.5-12.5 RED BLOOD CELL (test code=RBC) 3.39 mill/mm3 4.0-5.8 HEMOGLOBIN (test code=HGB) 8.8 gram/dL 13.0-17.5 HEMATOCRIT (test code=HCT) 30.5 % 42.0-52.0 MEAN CELL VOLUME (test code=MCV) 90.0 fL 80-98 MEAN CELL HGB (test code=MCH) 26.0 picogram 27.0-33.0 MEAN CELL HGB CONCETRATION (test code=MCHC) 28.9 gram/dL 33.0-36.0 RED CELL DISTRIBUTION WIDTH (test code=RDW) 16.5 % 11.6-16.2 RED CELL DISTRIBUTION WIDTH SD (test code=RDW-SD) 53.9 fL 37.0-51.0 PLATELET COUNT (test code=PLT) 287 K/mm3 150-450 MEAN PLATELET VOLUME (test code=MPV) 9.5 fL 6.7-11.0 NEUTROPHIL % (test code=NT%) 68.5 % 39.0-69.0 IMMATURE GRANULOCYTE % (test code=IG%) 0.6 % 0.0-5.0 LYMPHOCYTE % (test code=LY%) 17.7 % 25.0-55.0 MONOCYTE % (test code=MO%) 9.8 % 0.0-10.0 EOSINOPHIL % (test code=EO%) 3.1 % 0.0-5.0 BASOPHIL % (test code=BA%) 0.3 % 0.0-1.0 NUCLEATED RBC % (test code=NRBC%) 0.0 % 0-0 NEUTROPHIL # (test code=NT#) 4.92 K/mm3 1.8-7.7 IMMATURE GRANULOCYTE # (test code=IG#) 0.04 x10 3/uL 0-0.03 LYMPHOCYTE # (test code=LY#) 1.27 K/mm3 1.0-5.0 MONOCYTE # (test code=MO#) 0.70 K/mm3 0-0.8 EOSINOPHIL # (test code=EO#) 0.22 K/mm3 0.0-0.5 BASOPHIL # (test code=BA#) 0.02 K/mm3 0.0-0.2 NUCLEATED RBC # (test code=NRBC#) 0.00 K/mm3 0.0-0.1 MANUAL DIFF REQUIRED (test code=MDIFF) NO, ONLY SCAN NEEDED DIFFERENTIAL [id number] 04:58:00* Test Item Value Reference Range Comments STAIN ACCEPTABILITY (test code=STN ACCEPTABLE) CABOT RINGS (test code=CAB) MORPHOLOGY COMMENT (test code=MOC) PLATELET ESTIMATE (test code=PLTEST) PLATELET MORPHOLOGY (test code=PLTMORPH) [id number] 21:25:00* Test Item Value Reference Range Comments GLUBED (test code=GLUBED) 365 mg/dL 74-106 Performed by certified hyster machine operator at [facility] [id number] 17:41:00* Test Item Value Reference Range Comments GLUBED (test code=GLUBED) 393 mg/dL 74-106 Performed by certified hyster machine operator at [facility] PROTHROMBIN [id number] 16:28:00* Test Item Value Reference Range Comments PROTHROMBIN TIME PATIENT (test code=PTP) 13.6 seconds 9.0-14.0 INTERNATIONAL NORMAL RATIO (test code=INR) 1.2 0.8-1.2 The therapeutic range for oral anticoagulant therapy formost indications is an international normalized ratio (INR)of between 2.0 and 3.0. 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 YLIST ANTICOAGULANTS [id number] 12:35:00* Test Item Value Reference Range Comments GLUBED (test code=GLUBED) 414 mg/dL 74-106 Performed by certified hyster machine operator at [facility] CBC W/AUTO [id number] 06:46:00* Test Item Value Reference Range Comments WHITE BLOOD CELL (test code=WBC) 6.9 K/mm3 4.5-12.5 RED BLOOD CELL (test code=RBC) 3.29 mill/mm3 4.0-5.8 HEMOGLOBIN (test code=HGB) 8.6 gram/dL 13.0-17.5 HEMATOCRIT (test code=HCT) 29.7 % 42.0-52.0 MEAN CELL VOLUME (test code=MCV) 90.3 fL 80-98 MEAN CELL HGB (test code=MCH) 26.1 picogram 27.0-33.0 MEAN CELL HGB CONCETRATION (test code=MCHC) 29.0 gram/dL 33.0-36.0 RED CELL DISTRIBUTION WIDTH (test code=RDW) 16.9 % 11.6-16.2 RED CELL DISTRIBUTION WIDTH SD (test code=RDW-SD) 54.7 fL 37.0-51.0 PLATELET COUNT (test code=PLT) 301 K/mm3 150-450 RESULT VERIFIED BY REPEAT ANALYSIS MEAN PLATELET VOLUME (test code=MPV) 9.8 fL 6.7-11.0 NEUTROPHIL % (test code=NT%) 67.7 % 39.0-69.0 IMMATURE GRANULOCYTE % (test code=IG%) 0.7 % 0.0-5.0 LYMPHOCYTE % (test code=LY%) 19.0 % 25.0-55.0 MONOCYTE % (test code=MO%) 9.0 % 0.0-10.0 EOSINOPHIL % (test code=EO%) 3.3 % 0.0-5.0 BASOPHIL % (test code=BA%) 0.3 % 0.0-1.0 NUCLEATED RBC % (test code=NRBC%) 0.0 % 0-0 NEUTROPHIL # (test code=NT#) 4.68 K/mm3 1.8-7.7 IMMATURE GRANULOCYTE # (test code=IG#) 0.05 x10 3/uL 0-0.03 LYMPHOCYTE # (test code=LY#) 1.31 K/mm3 1.0-5.0 MONOCYTE # (test code=MO#) 0.62 K/mm3 0-0.8 EOSINOPHIL # (test code=EO#) 0.23 K/mm3 0.0-0.5 BASOPHIL # (test code=BA#) 0.02 K/mm3 0.0-0.2 NUCLEATED RBC # (test code=NRBC#) 0.00 K/mm3 0.0-0.1 MANUAL DIFF REQUIRED (test code=MDIFF) NO [id number] 06:07:00* Test Item Value Reference Range Comments GLUBED (test code=GLUBED) 280 mg/dL 74-106 Performed by certified hyster machine operator at [facility] [id number] 20:23:00* Test Item Value Reference Range Comments GLUBED (test code=GLUBED) 373 mg/dL 74-106 Performed by certified hyster machine operator at [facility] [id number] 16:24:00* Test Item Value Reference Range Comments GLUBED (test code=GLUBED) 322 mg/dL 74-106 Performed by certified hyster machine operator at [facility] PROTHROMBIN [id number] 14:33:00* Test Item Value Reference Range Comments PROTHROMBIN TIME PATIENT (test code=PTP) 13.0 seconds 9.0-14.0 INTERNATIONAL NORMAL RATIO (test code=INR) 1.1 0.8-1.2 The therapeutic range for oral anticoagulant therapy formost indications is an international normalized ratio (INR)of between 2.0 and 3.0. 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 YLIST ANTICOAGULANTS [id number] 11:29:00* Test Item Value Reference Range Comments GLUBED (test code=GLUBED) 297 mg/dL 74-106 Performed by certified hyster machine operator at [facility] CBC W/AUTO [id number] 07:00:00* Test Item Value Reference Range Comments WHITE BLOOD CELL (test code=WBC) 6.3 K/mm3 4.5-12.5 RED BLOOD CELL (test code=RBC) 2.87 mill/mm3 4.0-5.8 HEMOGLOBIN (test code=HGB) 7.8 gram/dL 13.0-17.5 HEMATOCRIT (test code=HCT) 25.8 % 42.0-52.0 MEAN CELL VOLUME (test code=MCV) 89.9 fL 80-98 MEAN CELL HGB (test code=MCH) 27.2 picogram 27.0-33.0 MEAN CELL HGB CONCETRATION (test code=MCHC) 30.2 gram/dL 33.0-36.0 RED CELL DISTRIBUTION WIDTH (test code=RDW) 17.3 % 11.6-16.2 RED CELL DISTRIBUTION WIDTH SD (test code=RDW-SD) 55.6 fL 37.0-51.0 PLATELET COUNT (test code=PLT) 239 K/mm3 150-450 MEAN PLATELET VOLUME (test code=MPV) 9.9 fL 6.7-11.0 NEUTROPHIL % (test code=NT%) 70.4 % 39.0-69.0 IMMATURE GRANULOCYTE % (test code=IG%) 0.5 % 0.0-5.0 LYMPHOCYTE % (test code=LY%) 13.2 % 25.0-55.0 MONOCYTE % (test code=MO%) 11.0 % 0.0-10.0 EOSINOPHIL % (test code=EO%) 4.6 % 0.0-5.0 BASOPHIL % (test code=BA%) 0.3 % 0.0-1.0 NUCLEATED RBC % (test code=NRBC%) 0.0 % 0-0 NEUTROPHIL # (test code=NT#) 4.43 K/mm3 1.8-7.7 IMMATURE GRANULOCYTE # (test code=IG#) 0.03 x10 3/uL 0-0.03 LYMPHOCYTE # (test code=LY#) 0.83 K/mm3 1.0-5.0 MONOCYTE # (test code=MO#) 0.69 K/mm3 0-0.8 EOSINOPHIL # (test code=EO#) 0.29 K/mm3 0.0-0.5 BASOPHIL # (test code=BA#) 0.02 K/mm3 0.0-0.2 NUCLEATED RBC # (test code=NRBC#) 0.00 K/mm3 0.0-0.1 MANUAL DIFF REQUIRED (test code=MDIFF) NO [id number] 05:27:00* Test Item Value Reference Range Comments GLUBED (test code=GLUBED) 310 mg/dL 74-106 Performed by certified hyster machine operator at [facility] [id number] 20:26:00* Test Item Value Reference Range Comments GLUBED (test code=GLUBED) 300 mg/dL 74-106 Performed by certified hyster machine operator at [facility] PROTHROMBIN [id number] 18:39:00* Test Item Value Reference Range Comments PROTHROMBIN TIME PATIENT (test code=PTP) 12.2 seconds 9.0-14.0 INTERNATIONAL NORMAL RATIO (test code=INR) 1.0 0.8-1.2 The therapeutic range for oral anticoagulant therapy formost indications is an international normalized ratio (INR)of between 2.0 and 3.0. 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 YLIST ANTICOAGULANTS [id number] 17:32:00* Test Item Value Reference Range Comments GLUBED (test code=GLUBED) 302 mg/dL 74-106 Performed by certified hyster machine operator at [facility] [id number] 11:19:00* Test Item Value Reference Range Comments GLUBED (test code=GLUBED) 293 mg/dL 74-106 Performed by certified hyster machine operator at [facility] CBC W/AUTO [id number] 10:13:00* Test Item Value Reference Range Comments WHITE BLOOD CELL (test code=WBC) 8.5 K/mm3 4.5-12.5 RED BLOOD CELL (test code=RBC) 3.12 mill/mm3 4.0-5.8 HEMOGLOBIN (test code=HGB) 8.3 gram/dL 13.0-17.5 HEMATOCRIT (test code=HCT) 28.9 % 42.0-52.0 MEAN CELL VOLUME (test code=MCV) 92.6 fL 80-98 MEAN CELL HGB (test code=MCH) 26.6 picogram 27.0-33.0 MEAN CELL HGB CONCETRATION (test code=MCHC) 28.7 gram/dL 33.0-36.0 RED CELL DISTRIBUTION WIDTH (test code=RDW) 18.0 % 11.6-16.2 RED CELL DISTRIBUTION WIDTH SD (test code=RDW-SD) 59.8 fL 37.0-51.0 PLATELET COUNT (test code=PLT) 230 K/mm3 150-450 MEAN PLATELET VOLUME (test code=MPV) 9.5 fL 6.7-11.0 NEUTROPHIL % (test code=NT%) 75.7 % 39.0-69.0 IMMATURE GRANULOCYTE % (test code=IG%) 0.7 % 0.0-5.0 LYMPHOCYTE % (test code=LY%) 11.5 % 25.0-55.0 MONOCYTE % (test code=MO%) 8.1 % 0.0-10.0 EOSINOPHIL % (test code=EO%) 3.9 % 0.0-5.0 BASOPHIL % (test code=BA%) 0.1 % 0.0-1.0 NUCLEATED RBC % (test code=NRBC%) 0.0 % 0-0 NEUTROPHIL # (test code=NT#) 6.44 K/mm3 1.8-7.7 IMMATURE GRANULOCYTE # (test code=IG#) 0.06 x10 3/uL 0-0.03 LYMPHOCYTE # (test code=LY#) 0.98 K/mm3 1.0-5.0 MONOCYTE # (test code=MO#) 0.69 K/mm3 0-0.8 EOSINOPHIL # (test code=EO#) 0.33 K/mm3 0.0-0.5 BASOPHIL # (test code=BA#) 0.01 K/mm3 0.0-0.2 NUCLEATED RBC # (test code=NRBC#) 0.00 K/mm3 0.0-0.1 MANUAL DIFF REQUIRED (test code=MDIFF) NO, ONLY SCAN NEEDED DIFFERENTIAL [id number] 10:13:00* Test Item Value Reference Range Comments STAIN ACCEPTABILITY (test code=STN ACCEPTABLE) STAIN ACCEPTABLE POLYCHROMASIA (test code=POLC) 3+ ANISOCYTOSIS (test code=ANISO) 2+ MICROCYTOSIS (test code=MICR) 1+ MACROCYTOSIS (test code=MACR) 1+ PLATELET ESTIMATE (test code=PLTEST) ADEQUATE PLATELET MORPHOLOGY (test code=PLTMORPH) NORMAL BASIC METABOLIC [id number] 10:03:00* Test Item Value Reference Range Comments SODIUM (test code=NA) 145 mmol/L 136-145 POTASSIUM (test code=K) 3.5 mmol/L 3.5-5.1 CHLORIDE (test code=CL) 112.0 mmol/L 98-107 CARBON DIOXIDE (test code=CO2) 28.0 mmol/L 21-32 ANION GAP (test code=GAP) 8.5 10-20 GLUCOSE (test code=GLU) 312 mg/dL 74-106 BLOOD UREA NITROGEN (test code=BUN) 34 mg/dL 7-18 GLOMERULAR FILTRATION RATE (test code=GFR) 39 mL/min >=60 Estimated GFR by using Modified MDRD formula.Chronic kidney disease is defined as either kidney damageor GFR <60 mL/min/1.73 m2 for >3 months. CREATININE (test code=CREAT) 1.70 mg/dL 0.7-1.3 BUN/CREATININE RATIO (test code=BUN/CREA) 20.2 10-20 CALCIUM (test code=CA) 8.2 mg/dL 8.5-10.1 CBC W/AUTO [id number] 08:58:00* Test Item Value Reference Range Comments WHITE BLOOD CELL (test code=WBC) 8.5 K/mm3 4.5-12.5 RED BLOOD CELL (test code=RBC) 3.12 mill/mm3 4.0-5.8 HEMOGLOBIN (test code=HGB) 8.3 gram/dL 13.0-17.5 HEMATOCRIT (test code=HCT) 28.9 % 42.0-52.0 MEAN CELL VOLUME (test code=MCV) 92.6 fL 80-98 MEAN CELL HGB (test code=MCH) 26.6 picogram 27.0-33.0 MEAN CELL HGB CONCETRATION (test code=MCHC) 28.7 gram/dL 33.0-36.0 RED CELL DISTRIBUTION WIDTH (test code=RDW) 18.0 % 11.6-16.2 RED CELL DISTRIBUTION WIDTH SD (test code=RDW-SD) 59.8 fL 37.0-51.0 PLATELET COUNT (test code=PLT) 230 K/mm3 150-450 MEAN PLATELET VOLUME (test code=MPV) 9.5 fL 6.7-11.0 NEUTROPHIL % (test code=NT%) 75.7 % 39.0-69.0 IMMATURE GRANULOCYTE % (test code=IG%) 0.7 % 0.0-5.0 LYMPHOCYTE % (test code=LY%) 11.5 % 25.0-55.0 MONOCYTE % (test code=MO%) 8.1 % 0.0-10.0 EOSINOPHIL % (test code=EO%) 3.9 % 0.0-5.0 BASOPHIL % (test code=BA%) 0.1 % 0.0-1.0 NUCLEATED RBC % (test code=NRBC%) 0.0 % 0-0 NEUTROPHIL # (test code=NT#) 6.44 K/mm3 1.8-7.7 IMMATURE GRANULOCYTE # (test code=IG#) 0.06 x10 3/uL 0-0.03 LYMPHOCYTE # (test code=LY#) 0.98 K/mm3 1.0-5.0 MONOCYTE # (test code=MO#) 0.69 K/mm3 0-0.8 EOSINOPHIL # (test code=EO#) 0.33 K/mm3 0.0-0.5 BASOPHIL # (test code=BA#) 0.01 K/mm3 0.0-0.2 NUCLEATED RBC # (test code=NRBC#) 0.00 K/mm3 0.0-0.1 MANUAL DIFF REQUIRED (test code=MDIFF) NO, ONLY SCAN NEEDED DIFFERENTIAL [id number] 08:58:00* Test Item Value Reference Range Comments STAIN ACCEPTABILITY (test code=STN ACCEPTABLE) CABOT RINGS (test code=CAB) MORPHOLOGY COMMENT (test code=MOC) PLATELET ESTIMATE (test code=PLTEST) PLATELET MORPHOLOGY (test code=PLTMORPH) CBC W/AUTO [id number] 08:58:00* Test Item Value Reference Range Comments WHITE BLOOD CELL (test code=WBC) 8.5 K/mm3 4.5-12.5 RED BLOOD CELL (test code=RBC) 3.12 mill/mm3 4.0-5.8 HEMOGLOBIN (test code=HGB) 8.3 gram/dL 13.0-17.5 HEMATOCRIT (test code=HCT) 28.9 % 42.0-52.0 MEAN CELL VOLUME (test code=MCV) 92.6 fL 80-98 MEAN CELL HGB (test code=MCH) 26.6 picogram 27.0-33.0 MEAN CELL HGB CONCETRATION (test code=MCHC) 28.7 gram/dL 33.0-36.0 RED CELL DISTRIBUTION WIDTH (test code=RDW) 18.0 % 11.6-16.2 RED CELL DISTRIBUTION WIDTH SD (test code=RDW-SD) 59.8 fL 37.0-51.0 PLATELET COUNT (test code=PLT) 230 K/mm3 150-450 MEAN PLATELET VOLUME (test code=MPV) 9.5 fL 6.7-11.0 NEUTROPHIL % (test code=NT%) 75.7 % 39.0-69.0 IMMATURE GRANULOCYTE % (test code=IG%) 0.7 % 0.0-5.0 LYMPHOCYTE % (test code=LY%) 11.5 % 25.0-55.0 MONOCYTE % (test code=MO%) 8.1 % 0.0-10.0 EOSINOPHIL % (test code=EO%) 3.9 % 0.0-5.0 BASOPHIL % (test code=BA%) 0.1 % 0.0-1.0 NUCLEATED RBC % (test code=NRBC%) 0.0 % 0-0 NEUTROPHIL # (test code=NT#) 6.44 K/mm3 1.8-7.7 IMMATURE GRANULOCYTE # (test code=IG#) 0.06 x10 3/uL 0-0.03 LYMPHOCYTE # (test code=LY#) 0.98 K/mm3 1.0-5.0 MONOCYTE # (test code=MO#) 0.69 K/mm3 0-0.8 EOSINOPHIL # (test code=EO#) 0.33 K/mm3 0.0-0.5 BASOPHIL # (test code=BA#) 0.01 K/mm3 0.0-0.2 NUCLEATED RBC # (test code=NRBC#) 0.00 K/mm3 0.0-0.1 MANUAL DIFF REQUIRED (test code=MDIFF) NO, ONLY SCAN NEEDED DIFFERENTIAL [id number] 08:58:00* Test Item Value Reference Range Comments STAIN ACCEPTABILITY (test code=STN ACCEPTABLE) MORPHOLOGY COMMENT (test code=MOC) PLATELET ESTIMATE (test code=PLTEST) PLATELET MORPHOLOGY (test code=PLTMORPH) CBC W/AUTO [id number] 08:57:00* Test Item Value Reference Range Comments WHITE BLOOD CELL (test code=WBC) 8.5 K/mm3 4.5-12.5 RED BLOOD CELL (test code=RBC) 3.12 mill/mm3 4.0-5.8 HEMOGLOBIN (test code=HGB) 8.3 gram/dL 13.0-17.5 HEMATOCRIT (test code=HCT) 28.9 % 42.0-52.0 MEAN CELL VOLUME (test code=MCV) 92.6 fL 80-98 MEAN CELL HGB (test code=MCH) 26.6 picogram 27.0-33.0 MEAN CELL HGB CONCETRATION (test code=MCHC) 28.7 gram/dL 33.0-36.0 RED CELL DISTRIBUTION WIDTH (test code=RDW) 18.0 % 11.6-16.2 RED CELL DISTRIBUTION WIDTH SD (test code=RDW-SD) 59.8 fL 37.0-51.0 PLATELET COUNT (test code=PLT) 230 K/mm3 150-450 MEAN PLATELET VOLUME (test code=MPV) 9.5 fL 6.7-11.0 NEUTROPHIL % (test code=NT%) 75.7 % 39.0-69.0 IMMATURE GRANULOCYTE % (test code=IG%) 0.7 % 0.0-5.0 LYMPHOCYTE % (test code=LY%) 11.5 % 25.0-55.0 MONOCYTE % (test code=MO%) 8.1 % 0.0-10.0 EOSINOPHIL % (test code=EO%) 3.9 % 0.0-5.0 BASOPHIL % (test code=BA%) 0.1 % 0.0-1.0 NUCLEATED RBC % (test code=NRBC%) 0.0 % 0-0 NEUTROPHIL # (test code=NT#) 6.44 K/mm3 1.8-7.7 IMMATURE GRANULOCYTE # (test code=IG#) 0.06 x10 3/uL 0-0.03 LYMPHOCYTE # (test code=LY#) 0.98 K/mm3 1.0-5.0 MONOCYTE # (test code=MO#) 0.69 K/mm3 0-0.8 EOSINOPHIL # (test code=EO#) 0.33 K/mm3 0.0-0.5 BASOPHIL # (test code=BA#) 0.01 K/mm3 0.0-0.2 NUCLEATED RBC # (test code=NRBC#) 0.00 K/mm3 0.0-0.1 MANUAL DIFF REQUIRED (test code=MDIFF) NO, ONLY SCAN NEEDED DIFFERENTIAL [id number] 08:57:00* Test Item Value Reference Range Comments STAIN ACCEPTABILITY (test code=STN ACCEPTABLE) CABOT RINGS (test code=CAB) MORPHOLOGY COMMENT (test code=MOC) PLATELET ESTIMATE (test code=PLTEST) PLATELET MORPHOLOGY (test code=PLTMORPH) CBC W/AUTO [id number] 08:57:00* Test Item Value Reference Range Comments WHITE BLOOD CELL (test code=WBC) 8.5 K/mm3 4.5-12.5 RED BLOOD CELL (test code=RBC) 3.12 mill/mm3 4.0-5.8 HEMOGLOBIN (test code=HGB) 8.3 gram/dL 13.0-17.5 HEMATOCRIT (test code=HCT) 28.9 % 42.0-52.0 MEAN CELL VOLUME (test code=MCV) 92.6 fL 80-98 MEAN CELL HGB (test code=MCH) 26.6 picogram 27.0-33.0 MEAN CELL HGB CONCETRATION (test code=MCHC) 28.7 gram/dL 33.0-36.0 RED CELL DISTRIBUTION WIDTH (test code=RDW) 18.0 % 11.6-16.2 RED CELL DISTRIBUTION WIDTH SD (test code=RDW-SD) 59.8 fL 37.0-51.0 PLATELET COUNT (test code=PLT) 230 K/mm3 150-450 MEAN PLATELET VOLUME (test code=MPV) 9.5 fL 6.7-11.0 NEUTROPHIL % (test code=NT%) 75.7 % 39.0-69.0 IMMATURE GRANULOCYTE % (test code=IG%) 0.7 % 0.0-5.0 LYMPHOCYTE % (test code=LY%) 11.5 % 25.0-55.0 MONOCYTE % (test code=MO%) 8.1 % 0.0-10.0 EOSINOPHIL % (test code=EO%) 3.9 % 0.0-5.0 BASOPHIL % (test code=BA%) 0.1 % 0.0-1.0 NUCLEATED RBC % (test code=NRBC%) 0.0 % 0-0 NEUTROPHIL # (test code=NT#) 6.44 K/mm3 1.8-7.7 IMMATURE GRANULOCYTE # (test code=IG#) 0.06 x10 3/uL 0-0.03 LYMPHOCYTE # (test code=LY#) 0.98 K/mm3 1.0-5.0 MONOCYTE # (test code=MO#) 0.69 K/mm3 0-0.8 EOSINOPHIL # (test code=EO#) 0.33 K/mm3 0.0-0.5 BASOPHIL # (test code=BA#) 0.01 K/mm3 0.0-0.2 NUCLEATED RBC # (test code=NRBC#) 0.00 K/mm3 0.0-0.1 MANUAL DIFF REQUIRED (test code=MDIFF) NO, ONLY SCAN NEEDED DIFFERENTIAL [id number] 08:57:00* Test Item Value Reference Range Comments STAIN ACCEPTABILITY (test code=STN ACCEPTABLE) CABOT RINGS (test code=CAB) MORPHOLOGY COMMENT (test code=MOC) PLATELET ESTIMATE (test code=PLTEST) PLATELET MORPHOLOGY (test code=PLTMORPH) [id number] 07:17:00* Test Item Value Reference Range Comments GLUBED (test code=GLUBED) 232 mg/dL 74-106 [facility] COMPREHENSIVE METABOLIC [id number] 06:27:00* Test Item Value Reference Range Comments SODIUM (test code=NA) 145 mmol/L 136-145 POTASSIUM (test code=K) 3.5 mmol/L 3.5-5.1 CHLORIDE (test code=CL) 112.0 mmol/L 98-107 CARBON DIOXIDE (test code=CO2) 25.0 mmol/L 21-32 ANION GAP (test code=GAP) 11.5 10-20 GLUCOSE (test code=GLU) 258 mg/dL 74-106 BLOOD UREA NITROGEN (test code=BUN) 38 mg/dL 7-18 GLOMERULAR FILTRATION RATE (test code=GFR) 42 mL/min >=60 Estimated GFR by using Modified MDRD formula.Chronic kidney disease is defined as either kidney damageor GFR <60 mL/min/1.73 m2 for >3 months. CREATININE (test code=CREAT) 1.60 mg/dL 0.7-1.3 BUN/CREATININE RATIO (test code=BUN/CREA) 23.5 10-20 TOTAL PROTEIN (test code=PROT) 6.0 gram/dL 6.4-8.2 ALBUMIN (test code=ALB) 2.1 g/dL 3.4-5.0 GLOBULIN (test code=GLOB) 3.9 gram/dL 2.7-4.2 ALBUMIN/GLOBULIN RATIO (test code=A/G) 0.5 0.75-1.50 CALCIUM (test code=CA) 8.0 mg/dL 8.5-10.1 BILIRUBIN TOTAL (test code=BILT) 0.40 mg/dL 0.0-1.0 SGOT/AST (test code=AST) 10 IUnit/L 15-37 SGPT/ALT (test code=ALT) 20 IUnit/L 12-78 ALKALINE PHOSPHATASE TOTAL (test code=ALKP) 69 IUnit/L 45-117 Note change in reference range due to change in reagent. COMPREHENSIVE METABOLIC [id number] 06:09:00* Test Item Value Reference Range Comments SODIUM (test code=NA) 145 mmol/L 136-145 POTASSIUM (test code=K) 3.5 mmol/L 3.5-5.1 CHLORIDE (test code=CL) 112.0 mmol/L 98-107 CARBON DIOXIDE (test code=CO2) mmol/L 21-32 ANION GAP (test code=GAP) 10-20 GLUCOSE (test code=GLU) mg/dL 74-106 BLOOD UREA NITROGEN (test code=BUN) mg/dL 7-18 GLOMERULAR FILTRATION RATE (test code=GFR) mL/min >=60 CREATININE (test code=CREAT) mg/dL 0.7-1.3 BUN/CREATININE RATIO (test code=BUN/CREA) 10-20 TOTAL PROTEIN (test code=PROT) gram/dL 6.4-8.2 ALBUMIN (test code=ALB) g/dL 3.4-5.0 GLOBULIN (test code=GLOB) gram/dL 2.7-4.2 ALBUMIN/GLOBULIN RATIO (test code=A/G) 0.75-1.50 CALCIUM (test code=CA) mg/dL 8.5-10.1 BILIRUBIN TOTAL (test code=BILT) mg/dL 0.0-1.0 SGOT/AST (test code=AST) IUnit/L 15-37 SGPT/ALT (test code=ALT) IUnit/L 12-78 ALKALINE PHOSPHATASE TOTAL (test code=ALKP) IUnit/L 45-117 CBC W/AUTO [id number] 05:39:00* Test Item Value Reference Range Comments WHITE BLOOD CELL (test code=WBC) 8.4 K/mm3 4.5-12.5 RED BLOOD CELL (test code=RBC) 2.80 mill/mm3 4.0-5.8 HEMOGLOBIN (test code=HGB) 7.7 gram/dL 13.0-17.5 HEMATOCRIT (test code=HCT) 25.5 % 42.0-52.0 MEAN CELL VOLUME (test code=MCV) 91.1 fL 80-98 MEAN CELL HGB (test code=MCH) 27.5 picogram 27.0-33.0 MEAN CELL HGB CONCETRATION (test code=MCHC) 30.2 gram/dL 33.0-36.0 RED CELL DISTRIBUTION WIDTH (test code=RDW) 17.8 % 11.6-16.2 RED CELL DISTRIBUTION WIDTH SD (test code=RDW-SD) 58.3 fL 37.0-51.0 PLATELET COUNT (test code=PLT) 217 K/mm3 150-450 MEAN PLATELET VOLUME (test code=MPV) 9.6 fL 6.7-11.0 NEUTROPHIL % (test code=NT%) 70.6 % 39.0-69.0 IMMATURE GRANULOCYTE % (test code=IG%) 0.5 % 0.0-5.0 LYMPHOCYTE % (test code=LY%) 13.3 % 25.0-55.0 MONOCYTE % (test code=MO%) 10.4 % 0.0-10.0 EOSINOPHIL % (test code=EO%) 4.8 % 0.0-5.0 BASOPHIL % (test code=BA%) 0.4 % 0.0-1.0 NUCLEATED RBC % (test code=NRBC%) 0.0 % 0-0 NEUTROPHIL # (test code=NT#) 5.94 K/mm3 1.8-7.7 IMMATURE GRANULOCYTE # (test code=IG#) 0.04 x10 3/uL 0-0.03 LYMPHOCYTE # (test code=LY#) 1.12 K/mm3 1.0-5.0 MONOCYTE # (test code=MO#) 0.87 K/mm3 0-0.8 EOSINOPHIL # (test code=EO#) 0.40 K/mm3 0.0-0.5 BASOPHIL # (test code=BA#) 0.03 K/mm3 0.0-0.2 NUCLEATED RBC # (test code=NRBC#) 0.00 K/mm3 0.0-0.1 [id number] 21:41:00* Test Item Value Reference Range Comments GLUBED (test code=GLUBED) 278 mg/dL 74-106 [facility] certified hyster [facility] [id number] 17:11:00* Test Item Value Reference Range Comments GLUBED (test code=GLUBED) 297 mg/dL 74-106 Performed by certified hyster machine operator at [facility] [id number] 12:46:00* Test Item Value Reference Range Comments GLUBED (test code=GLUBED) 229 mg/dL 74-106 Performed by certified hyster machine operator at [facility] CBC W/AUTO [id number] 07:30:00* Test Item Value Reference Range Comments WHITE BLOOD CELL (test code=WBC) 10.5 K/mm3 4.5-12.5 RED BLOOD CELL (test code=RBC) 2.93 mill/mm3 4.0-5.8 HEMOGLOBIN (test code=HGB) 8.1 gram/dL 13.0-17.5 HEMATOCRIT (test code=HCT) 26.4 % 42.0-52.0 MEAN CELL VOLUME (test code=MCV) 90.1 fL 80-98 MEAN CELL HGB (test code=MCH) 27.6 picogram 27.0-33.0 MEAN CELL HGB CONCETRATION (test code=MCHC) 30.7 gram/dL 33.0-36.0 RED CELL DISTRIBUTION WIDTH (test code=RDW) 18.3 % 11.6-16.2 RED CELL DISTRIBUTION WIDTH SD (test code=RDW-SD) 56.5 fL 37.0-51.0 PLATELET COUNT (test code=PLT) 209 K/mm3 150-450 MEAN PLATELET VOLUME (test code=MPV) 9.9 fL 6.7-11.0 NEUTROPHIL % (test code=NT%) 81.9 % 39.0-69.0 IMMATURE GRANULOCYTE % (test code=IG%) 0.6 % 0.0-5.0 LYMPHOCYTE % (test code=LY%) 7.9 % 25.0-55.0 MONOCYTE % (test code=MO%) 8.9 % 0.0-10.0 EOSINOPHIL % (test code=EO%) 0.5 % 0.0-5.0 BASOPHIL % (test code=BA%) 0.2 % 0.0-1.0 NUCLEATED RBC % (test code=NRBC%) 0.0 % 0-0 NEUTROPHIL # (test code=NT#) 8.57 K/mm3 1.8-7.7 IMMATURE GRANULOCYTE # (test code=IG#) 0.06 x10 3/uL 0-0.03 LYMPHOCYTE # (test code=LY#) 0.83 K/mm3 1.0-5.0 MONOCYTE # (test code=MO#) 0.93 K/mm3 0-0.8 EOSINOPHIL # (test code=EO#) 0.05 K/mm3 0.0-0.5 BASOPHIL # (test code=BA#) 0.02 K/mm3 0.0-0.2 NUCLEATED RBC # (test code=NRBC#) 0.00 K/mm3 0.0-0.1 MANUAL DIFF REQUIRED (test code=MDIFF) NO PROTHROMBIN [id number] 07:00:00* Test Item Value Reference Range Comments PROTHROMBIN TIME PATIENT (test code=PTP) 12.8 seconds 9.0-14.0 INTERNATIONAL NORMAL RATIO (test code=INR) 1.1 0.8-1.2 The therapeutic range for oral anticoagulant therapy [employer] indications is an international normalized ratio (INR)of between 2.0 and 3.0. 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 [employer] ANTICOAGULANTS [id number] 06:08:00* Test Item Value Reference Range Comments GLUBED (test code=GLUBED) 192 mg/dL 74-106 Performed by certified hyster machine operator at [facility] [id number] 20:43:00* Test Item Value Reference Range Comments GLUBED (test code=GLUBED) 252 mg/dL 74-106 Performed by certified hyster machine operator at [facility] [id number] 17:41:00* Test Item Value Reference Range Comments GLUBED (test code=GLUBED) 329 mg/dL 74-106 Performed by certified hyster machine operator at [facility] [id number] 17:41:00* Test Item Value Reference Range Comments GLUBED (test code=GLUBED) 205 mg/dL 74-106 Performed by certified hyster machine operator at [facility] PROTHROMBIN [id number] 12:35:00* Test Item Value Reference Range Comments PROTHROMBIN TIME PATIENT (test code=PTP) 13.0 seconds 9.0-14.0 INTERNATIONAL NORMAL RATIO (test code=INR) 1.1 0.8-1.2 The therapeutic range for oral anticoagulant therapy [employer] indications is an international normalized ratio (INR)of between 2.0 and 3.0. 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 [employer] ANTICOAGULANTS [id number] 06:41:00* Test Item Value Reference Range Comments GLUBED (test code=GLUBED) 215 mg/dL 74-106 Performed by certified hyster machine operator at [facility] PROTHROMBIN [id number] 05:34:00* Test Item Value Reference Range Comments PROTHROMBIN TIME PATIENT (test code=PTP) 13.7 seconds 9.0-14.0 INTERNATIONAL NORMAL RATIO (test code=INR) 1.2 0.8-1.2 The therapeutic range for oral anticoagulant therapy [employer] indications is an international normalized ratio (INR)of between 2.0 and 3.0. 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 [employer] ANTICOAGULANTS COUMADINCBC W/AUTO DIFF 2018-05-01 05:26:00* Test Item Value Reference Range Comments WHITE BLOOD CELL (test code=WBC) 15.3 K/mm3 4.5-12.5 RED BLOOD CELL (test code=RBC) 3.07 mill/mm3 4.0-5.8 HEMOGLOBIN (test code=HGB) 8.3 gram/dL 13.0-17.5 HEMATOCRIT (test code=HCT) 27.2 % 42.0-52.0 MEAN CELL VOLUME (test code=MCV) 88.6 fL 80-98 MEAN CELL HGB (test code=MCH) 27.0 picogram 27.0-33.0 MEAN CELL HGB CONCETRATION (test code=MCHC) 30.5 gram/dL 33.0-36.0 RED CELL DISTRIBUTION WIDTH (test code=RDW) 18.6 % 11.6-16.2 RED CELL DISTRIBUTION WIDTH SD (test code=RDW-SD) 55.8 fL 37.0-51.0 PLATELET COUNT (test code=PLT) 216 K/mm3 150-450 MEAN PLATELET VOLUME (test code=MPV) 9.9 fL 6.7-11.0 NEUTROPHIL % (test code=NT%) 82.3 % 39.0-69.0 IMMATURE GRANULOCYTE % (test code=IG%) 0.8 % 0.0-5.0 LYMPHOCYTE % (test code=LY%) 6.3 % 25.0-55.0 MONOCYTE % (test code=MO%) 9.2 % 0.0-10.0 EOSINOPHIL % (test code=EO%) 1.1 % 0.0-5.0 BASOPHIL % (test code=BA%) 0.3 % 0.0-1.0 NUCLEATED RBC % (test code=NRBC%) 0.3 % 0-0 NEUTROPHIL # (test code=NT#) 12.56 K/mm3 1.8-7.7 IMMATURE GRANULOCYTE # (test code=IG#) 0.12 x10 3/uL 0-0.03 LYMPHOCYTE # (test code=LY#) 0.96 K/mm3 1.0-5.0 MONOCYTE # (test code=MO#) 1.41 K/mm3 0-0.8 EOSINOPHIL # (test code=EO#) 0.17 K/mm3 0.0-0.5 BASOPHIL # (test code=BA#) 0.04 K/mm3 0.0-0.2 NUCLEATED RBC # (test code=NRBC#) 0.05 K/mm3 0.0-0.1 MANUAL DIFF REQUIRED (test code=MDIFF) NO PROTHROMBIN [id number] 19:21:00* Test Item Value Reference Range Comments PROTHROMBIN TIME PATIENT (test code=PTP) 16.1 seconds 9.0-14.0 INTERNATIONAL NORMAL RATIO (test code=INR) 1.4 0.8-1.2 The therapeutic range for oral anticoagulant therapy [employer] indications is an international normalized ratio (INR)of between 2.0 and 3.0. 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 YLIST ANTICOAGULANTS [id number] 17:18:00* Test Item Value Reference Range Comments GLUBED (test code=GLUBED) 212 mg/dL 74-106 Performed by certified hyster machine operator at [facility] [id number] 17:17:00* Test Item Value Reference Range Comments GLUBED (test code=GLUBED) 214 mg/dL 74-106 Performed by certified hyster machine operator at [facility] [id number] 13:15:00* Test Item Value Reference Range Comments FIBRINOGEN (test code=FIB) 726 mg/dL 200-400 CBC W/AUTO [id number] 12:53:00* Test Item Value Reference Range Comments WHITE BLOOD CELL (test code=WBC) 18.6 K/mm3 4.5-12.5 RED BLOOD CELL (test code=RBC) 2.99 mill/mm3 4.0-5.8 HEMOGLOBIN (test code=HGB) 7.7 gram/dL 13.0-17.5 RESULT VERIFIED BY REPEAT ANALYSIS HEMATOCRIT (test code=HCT) 26.4 % 42.0-52.0 MEAN CELL VOLUME (test code=MCV) 88.3 fL 80-98 MEAN CELL HGB (test code=MCH) 25.8 picogram 27.0-33.0 MEAN CELL HGB CONCETRATION (test code=MCHC) 29.2 gram/dL 33.0-36.0 RED CELL DISTRIBUTION WIDTH (test code=RDW) 19.4 % 11.6-16.2 RED CELL DISTRIBUTION WIDTH SD (test code=RDW-SD) 56.7 fL 37.0-51.0 PLATELET COUNT (test code=PLT) 265 K/mm3 150-450 RESULT VERIFIED BY REPEAT ANALYSIS MEAN PLATELET VOLUME (test code=MPV) 9.7 fL 6.7-11.0 NEUTROPHIL % (test code=NT%) 82.3 % 39.0-69.0 IMMATURE GRANULOCYTE % (test code=IG%) 1.1 % 0.0-5.0 LYMPHOCYTE % (test code=LY%) 7.0 % 25.0-55.0 MONOCYTE % (test code=MO%) 8.9 % 0.0-10.0 EOSINOPHIL % (test code=EO%) 0.5 % 0.0-5.0 BASOPHIL % (test code=BA%) 0.2 % 0.0-1.0 NUCLEATED RBC % (test code=NRBC%) 0.3 % 0-0 NEUTROPHIL # (test code=NT#) 15.28 K/mm3 1.8-7.7 IMMATURE GRANULOCYTE # (test code=IG#) 0.21 x10 3/uL 0-0.03 LYMPHOCYTE # (test code=LY#) 1.29 K/mm3 1.0-5.0 MONOCYTE # (test code=MO#) 1.65 K/mm3 0-0.8 EOSINOPHIL # (test code=EO#) 0.09 K/mm3 0.0-0.5 BASOPHIL # (test code=BA#) 0.04 K/mm3 0.0-0.2 NUCLEATED RBC # (test code=NRBC#) 0.05 K/mm3 0.0-0.1 MANUAL DIFF REQUIRED (test code=MDIFF) NO, ONLY SCAN NEEDED DIFFERENTIAL [id number] 12:53:00* Test Item Value Reference Range Comments STAIN ACCEPTABILITY (test code=STN ACCEPTABLE) STAIN ACCEPTABLE POLYCHROMASIA (test code=POLC) 2+ POIKILOCYTOSIS (test code=POIK) 1+ ANISOCYTOSIS (test code=ANISO) 1+ MICROCYTOSIS (test code=MICR) 1+ ELLIPTOCYTES (test code=ELL) 1+ PLATELET ESTIMATE (test code=PLTEST) ADEQUATE PLATELET MORPHOLOGY (test code=PLTMORPH) NORMAL [id number] 12:29:00* Test Item Value Reference Range Comments D-DIMER (test code=DDIMER) 407.00 ng/mLFEU 0-500 Clinical Cut-off value for D- Dimer is 500 ng/mL FEU. Comment: The [employer] D-Dimer assay is intended for use asan aid in the diagnosis of venous thromboembolism (VTE)[deep vein thrombosis (DVT) or pulmonary embolism (PE)].The measurement of D-Dimer should not be used as an aid inthe diagnosis of VTE, in patient with: -Therapeutic dose anticoagulant therapy for >24 hours -Fibrinolytic therapy within previous 7 days -Trauma or surgery within previous 4 weeks -Disseminated malignancies - Aortic aneurysm -Sepsis, severe infections, pneumonia, severe skin infections -Liver cirrhosis - PROTHROMBIN [id number] 12:08:00* Test Item Value Reference Range Comments PROTHROMBIN TIME PATIENT (test code=PTP) 25.9 seconds 9.0-14.0 INTERNATIONAL NORMAL RATIO (test code=INR) 2.2 0.8-1.2 The therapeutic range for oral anticoagulant therapy formost indications is an international normalized ratio (INR)of between 2.0 and 3.0. 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 YLIST ANTICOAGULANTS COUMADINPROTHROMBIN TIME 2018-04-30 10:19:00* Test Item Value Reference Range Comments PROTHROMBIN TIME PATIENT (test code=PTP) 26.3 seconds 9.0-14.0 INTERNATIONAL NORMAL RATIO (test code=INR) 2.2 0.8-1.2 The therapeutic range for oral anticoagulant therapy formost indications is an international normalized ratio (INR)of between 2.0 and 3.0. 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 YLIST ANTICOAGULANTS COUMADINCBC W/AUTO DIFF 2018-04-30 10:02:00* Test Item Value Reference Range Comments WHITE BLOOD CELL (test code=WBC) 18.6 K/mm3 4.5-12.5 RED BLOOD CELL (test code=RBC) 2.99 mill/mm3 4.0-5.8 HEMOGLOBIN (test code=HGB) 7.7 gram/dL 13.0-17.5 RESULT VERIFIED BY REPEAT ANALYSIS HEMATOCRIT (test code=HCT) 26.4 % 42.0-52.0 MEAN CELL VOLUME (test code=MCV) 88.3 fL 80-98 MEAN CELL HGB (test code=MCH) 25.8 picogram 27.0-33.0 MEAN CELL HGB CONCETRATION (test code=MCHC) 29.2 gram/dL 33.0-36.0 RED CELL DISTRIBUTION WIDTH (test code=RDW) 19.4 % 11.6-16.2 RED CELL DISTRIBUTION WIDTH SD (test code=RDW-SD) 56.7 fL 37.0-51.0 PLATELET COUNT (test code=PLT) 265 K/mm3 150-450 RESULT VERIFIED BY REPEAT ANALYSIS MEAN PLATELET VOLUME (test code=MPV) 9.7 fL 6.7-11.0 NEUTROPHIL % (test code=NT%) 82.3 % 39.0-69.0 IMMATURE GRANULOCYTE % (test code=IG%) 1.1 % 0.0-5.0 LYMPHOCYTE % (test code=LY%) 7.0 % 25.0-55.0 MONOCYTE % (test code=MO%) 8.9 % 0.0-10.0 EOSINOPHIL % (test code=EO%) 0.5 % 0.0-5.0 BASOPHIL % (test code=BA%) 0.2 % 0.0-1.0 NUCLEATED RBC % (test code=NRBC%) 0.3 % 0-0 NEUTROPHIL # (test code=NT#) 15.28 K/mm3 1.8-7.7 IMMATURE GRANULOCYTE # (test code=IG#) 0.21 x10 3/uL 0-0.03 LYMPHOCYTE # (test code=LY#) 1.29 K/mm3 1.0-5.0 MONOCYTE # (test code=MO#) 1.65 K/mm3 0-0.8 EOSINOPHIL # (test code=EO#) 0.09 K/mm3 0.0-0.5 BASOPHIL # (test code=BA#) 0.04 K/mm3 0.0-0.2 NUCLEATED RBC # (test code=NRBC#) 0.05 K/mm3 0.0-0.1 MANUAL DIFF REQUIRED (test code=MDIFF) NO, ONLY SCAN NEEDED DIFFERENTIAL [id number] 10:02:00* Test Item Value Reference Range Comments STAIN ACCEPTABILITY (test code=STN ACCEPTABLE) CABOT RINGS (test code=CAB) MORPHOLOGY COMMENT (test code=MOC) PLATELET ESTIMATE (test code=PLTEST) PLATELET MORPHOLOGY (test code=PLTMORPH) CBC W/AUTO [id number] 10:02:00* Test Item Value Reference Range Comments WHITE BLOOD CELL (test code=WBC) 18.6 K/mm3 4.5-12.5 RED BLOOD CELL (test code=RBC) 2.99 mill/mm3 4.0-5.8 HEMOGLOBIN (test code=HGB) 7.7 gram/dL 13.0-17.5 RESULT VERIFIED BY REPEAT ANALYSIS HEMATOCRIT (test code=HCT) 26.4 % 42.0-52.0 MEAN CELL VOLUME (test code=MCV) 88.3 fL 80-98 MEAN CELL HGB (test code=MCH) 25.8 picogram 27.0-33.0 MEAN CELL HGB CONCETRATION (test code=MCHC) 29.2 gram/dL 33.0-36.0 RED CELL DISTRIBUTION WIDTH (test code=RDW) 19.4 % 11.6-16.2 RED CELL DISTRIBUTION WIDTH SD (test code=RDW-SD) 56.7 fL 37.0-51.0 PLATELET COUNT (test code=PLT) 265 K/mm3 150-450 RESULT VERIFIED BY REPEAT ANALYSIS MEAN PLATELET VOLUME (test code=MPV) 9.7 fL 6.7-11.0 NEUTROPHIL % (test code=NT%) 82.3 % 39.0-69.0 IMMATURE GRANULOCYTE % (test code=IG%) 1.1 % 0.0-5.0 LYMPHOCYTE % (test code=LY%) 7.0 % 25.0-55.0 MONOCYTE % (test code=MO%) 8.9 % 0.0-10.0 EOSINOPHIL % (test code=EO%) 0.5 % 0.0-5.0 BASOPHIL % (test code=BA%) 0.2 % 0.0-1.0 NUCLEATED RBC % (test code=NRBC%) 0.3 % 0-0 NEUTROPHIL # (test code=NT#) 15.28 K/mm3 1.8-7.7 IMMATURE GRANULOCYTE # (test code=IG#) 0.21 x10 3/uL 0-0.03 LYMPHOCYTE # (test code=LY#) 1.29 K/mm3 1.0-5.0 MONOCYTE # (test code=MO#) 1.65 K/mm3 0-0.8 EOSINOPHIL # (test code=EO#) 0.09 K/mm3 0.0-0.5 BASOPHIL # (test code=BA#) 0.04 K/mm3 0.0-0.2 NUCLEATED RBC # (test code=NRBC#) 0.05 K/mm3 0.0-0.1 MANUAL DIFF REQUIRED (test code=MDIFF) NO, ONLY SCAN NEEDED DIFFERENTIAL [id number] 10:02:00* Test Item Value Reference Range Comments STAIN ACCEPTABILITY (test code=STN ACCEPTABLE) CABOT RINGS (test code=CAB) MORPHOLOGY COMMENT (test code=MOC) PLATELET ESTIMATE (test code=PLTEST) PLATELET MORPHOLOGY (test code=PLTMORPH) CBC W/AUTO [id number] 10:02:00* Test Item Value Reference Range Comments WHITE BLOOD CELL (test code=WBC) 18.6 K/mm3 4.5-12.5 RED BLOOD CELL (test code=RBC) 2.99 mill/mm3 4.0-5.8 HEMOGLOBIN (test code=HGB) 7.7 gram/dL 13.0-17.5 RESULT VERIFIED BY REPEAT ANALYSIS HEMATOCRIT (test code=HCT) 26.4 % 42.0-52.0 MEAN CELL VOLUME (test code=MCV) 88.3 fL 80-98 MEAN CELL HGB (test code=MCH) 25.8 picogram 27.0-33.0 MEAN CELL HGB CONCETRATION (test code=MCHC) 29.2 gram/dL 33.0-36.0 RED CELL DISTRIBUTION WIDTH (test code=RDW) 19.4 % 11.6-16.2 RED CELL DISTRIBUTION WIDTH SD (test code=RDW-SD) 56.7 fL 37.0-51.0 PLATELET COUNT (test code=PLT) 265 K/mm3 150-450 RESULT VERIFIED BY REPEAT ANALYSIS MEAN PLATELET VOLUME (test code=MPV) 9.7 fL 6.7-11.0 NEUTROPHIL % (test code=NT%) 82.3 % 39.0-69.0 IMMATURE GRANULOCYTE % (test code=IG%) 1.1 % 0.0-5.0 LYMPHOCYTE % (test code=LY%) 7.0 % 25.0-55.0 MONOCYTE % (test code=MO%) 8.9 % 0.0-10.0 EOSINOPHIL % (test code=EO%) 0.5 % 0.0-5.0 BASOPHIL % (test code=BA%) 0.2 % 0.0-1.0 NUCLEATED RBC % (test code=NRBC%) 0.3 % 0-0 NEUTROPHIL # (test code=NT#) 15.28 K/mm3 1.8-7.7 IMMATURE GRANULOCYTE # (test code=IG#) 0.21 x10 3/uL 0-0.03 LYMPHOCYTE # (test code=LY#) 1.29 K/mm3 1.0-5.0 MONOCYTE # (test code=MO#) 1.65 K/mm3 0-0.8 EOSINOPHIL # (test code=EO#) 0.09 K/mm3 0.0-0.5 BASOPHIL # (test code=BA#) 0.04 K/mm3 0.0-0.2 NUCLEATED RBC # (test code=NRBC#) 0.05 K/mm3 0.0-0.1 MANUAL DIFF REQUIRED (test code=MDIFF) NO, ONLY SCAN NEEDED DIFFERENTIAL [id number] 10:02:00* Test Item Value Reference Range Comments STAIN ACCEPTABILITY (test code=STN ACCEPTABLE) MORPHOLOGY COMMENT (test code=MOC) PLATELET ESTIMATE (test code=PLTEST) PLATELET MORPHOLOGY (test code=PLTMORPH) CBC W/AUTO [id number] 10:02:00* Test Item Value Reference Range Comments WHITE BLOOD CELL (test code=WBC) 18.6 K/mm3 4.5-12.5 RED BLOOD CELL (test code=RBC) 2.99 mill/mm3 4.0-5.8 HEMOGLOBIN (test code=HGB) 7.7 gram/dL 13.0-17.5 RESULT VERIFIED BY REPEAT ANALYSIS HEMATOCRIT (test code=HCT) 26.4 % 42.0-52.0 MEAN CELL VOLUME (test code=MCV) 88.3 fL 80-98 MEAN CELL HGB (test code=MCH) 25.8 picogram 27.0-33.0 MEAN CELL HGB CONCETRATION (test code=MCHC) 29.2 gram/dL 33.0-36.0 RED CELL DISTRIBUTION WIDTH (test code=RDW) 19.4 % 11.6-16.2 RED CELL DISTRIBUTION WIDTH SD (test code=RDW-SD) 56.7 fL 37.0-51.0 PLATELET COUNT (test code=PLT) 265 K/mm3 150-450 RESULT VERIFIED BY REPEAT ANALYSIS MEAN PLATELET VOLUME (test code=MPV) 9.7 fL 6.7-11.0 NEUTROPHIL % (test code=NT%) 82.3 % 39.0-69.0 IMMATURE GRANULOCYTE % (test code=IG%) 1.1 % 0.0-5.0 LYMPHOCYTE % (test code=LY%) 7.0 % 25.0-55.0 MONOCYTE % (test code=MO%) 8.9 % 0.0-10.0 EOSINOPHIL % (test code=EO%) 0.5 % 0.0-5.0 BASOPHIL % (test code=BA%) 0.2 % 0.0-1.0 NUCLEATED RBC % (test code=NRBC%) 0.3 % 0-0 NEUTROPHIL # (test code=NT#) 15.28 K/mm3 1.8-7.7 IMMATURE GRANULOCYTE # (test code=IG#) 0.21 x10 3/uL 0-0.03 LYMPHOCYTE # (test code=LY#) 1.29 K/mm3 1.0-5.0 MONOCYTE # (test code=MO#) 1.65 K/mm3 0-0.8 EOSINOPHIL # (test code=EO#) 0.09 K/mm3 0.0-0.5 BASOPHIL # (test code=BA#) 0.04 K/mm3 0.0-0.2 NUCLEATED RBC # (test code=NRBC#) 0.05 K/mm3 0.0-0.1 MANUAL DIFF REQUIRED (test code=MDIFF) NO, ONLY SCAN NEEDED DIFFERENTIAL [id number] 10:02:00* Test Item Value Reference Range Comments STAIN ACCEPTABILITY (test code=STN ACCEPTABLE) CABOT RINGS (test code=CAB) MORPHOLOGY COMMENT (test code=MOC) PLATELET ESTIMATE (test code=PLTEST) PLATELET MORPHOLOGY (test code=PLTMORPH) [id number] 06:28:00* Test Item Value Reference Range Comments GLUBED (test code=GLUBED) 208 mg/dL 74-106 Performed by certified hyster machine operator at [facility] [id number] 21:33:00* Test Item Value Reference Range Comments GLUBED (test code=GLUBED) 258 mg/dL 74-106 Performed by certified hyster machine operator at [facility] [id number] 16:42:00* Test Item Value Reference Range Comments GLUBED (test code=GLUBED) 301 mg/dL 74-106 Performed by certified hyster machine operator at [facility] CBC W/AUTO [id number] 13:16:00* Test Item Value Reference Range Comments WHITE BLOOD CELL (test code=WBC) 17.2 K/mm3 4.5-12.5 RED BLOOD CELL (test code=RBC) 2.35 mill/mm3 4.0-5.8 HEMOGLOBIN (test code=HGB) 5.7 gram/dL 13.0-17.5 RESULT VERIFIED BY REPEAT ANALYSIS HEMATOCRIT (test code=HCT) 20.2 % 42.0-52.0 Results called to [id number] by MARGO 04/29/18 1316Critical results verified and read back by Nurse? Y MEAN CELL VOLUME (test code=MCV) 86.0 fL 80-98 MEAN CELL HGB (test code=MCH) 24.3 picogram 27.0-33.0 MEAN CELL HGB CONCETRATION (test code=MCHC) 28.2 gram/dL 33.0-36.0 RED CELL DISTRIBUTION WIDTH (test code=RDW) 21.5 % 11.6-16.2 RED CELL DISTRIBUTION WIDTH SD (test code=RDW-SD) 56.5 fL 37.0-51.0 PLATELET COUNT (test code=PLT) 319 K/mm3 150-450 MEAN PLATELET VOLUME (test code=MPV) 10.2 fL 6.7-11.0 NEUTROPHIL % (test code=NT%) 80.8 % 39.0-69.0 IMMATURE GRANULOCYTE % (test code=IG%) 1.0 % 0.0-5.0 LYMPHOCYTE % (test code=LY%) 9.3 % 25.0-55.0 MONOCYTE % (test code=MO%) 8.6 % 0.0-10.0 EOSINOPHIL % (test code=EO%) 0.1 % 0.0-5.0 BASOPHIL % (test code=BA%) 0.2 % 0.0-1.0 NUCLEATED RBC % (test code=NRBC%) 0.2 % 0-0 NEUTROPHIL # (test code=NT#) 13.88 K/mm3 1.8-7.7 IMMATURE GRANULOCYTE # (test code=IG#) 0.17 x10 3/uL 0-0.03 LYMPHOCYTE # (test code=LY#) 1.60 K/mm3 1.0-5.0 MONOCYTE # (test code=MO#) 1.48 K/mm3 0-0.8 EOSINOPHIL # (test code=EO#) 0.01 K/mm3 0.0-0.5 BASOPHIL # (test code=BA#) 0.03 K/mm3 0.0-0.2 NUCLEATED RBC # (test code=NRBC#) 0.03 K/mm3 0.0-0.1 MANUAL DIFF REQUIRED (test code=MDIFF) NO COMPREHENSIVE METABOLIC [id number] 13:01:00* Test Item Value Reference Range Comments SODIUM (test code=NA) 142 mmol/L 136-145 POTASSIUM (test code=K) 4.6 mmol/L 3.5-5.1 CHLORIDE (test code=CL) 116.0 mmol/L 98-107 CARBON DIOXIDE (test code=CO2) 14.0 mmol/L 21-32 ANION GAP (test code=GAP) 16.6 10-20 GLUCOSE (test code=GLU) 267 mg/dL 74-106 BLOOD UREA NITROGEN (test code=BUN) 24 mg/dL 7-18 GLOMERULAR FILTRATION RATE (test code=GFR) 35 mL/min >=60 Estimated GFR by using Modified MDRD formula.Chronic kidney disease is defined as either kidney damageor GFR <60 mL/min/1.73 m2 for >3 months. CREATININE (test code=CREAT) 1.90 mg/dL 0.7-1.3 BUN/CREATININE RATIO (test code=BUN/CREA) 12.8 10-20 TOTAL PROTEIN (test code=PROT) 6.1 gram/dL 6.4-8.2 ALBUMIN (test code=ALB) 1.9 g/dL 3.4-5.0 GLOBULIN (test code=GLOB) 4.2 gram/dL 2.7-4.2 ALBUMIN/GLOBULIN RATIO (test code=A/G) 0.5 0.75-1.50 CALCIUM (test code=CA) 8.0 mg/dL 8.5-10.1 BILIRUBIN TOTAL (test code=BILT) 0.20 mg/dL 0.0-1.0 SGOT/AST (test code=AST) 27 IUnit/L 15-37 SGPT/ALT (test code=ALT) 52 IUnit/L 12-78 ALKALINE PHOSPHATASE TOTAL (test code=ALKP) 75 IUnit/L 45-117 Note change in reference range due to change in reagent. COMPREHENSIVE METABOLIC [id number] 12:52:00* Test Item Value Reference Range Comments SODIUM (test code=NA) 142 mmol/L 136-145 POTASSIUM (test code=K) 4.6 mmol/L 3.5-5.1 CHLORIDE (test code=CL) 116.0 mmol/L 98-107 CARBON DIOXIDE (test code=CO2) mmol/L 21-32 ANION GAP (test code=GAP) 10-20 GLUCOSE (test code=GLU) mg/dL 74-106 BLOOD UREA NITROGEN (test code=BUN) mg/dL 7-18 GLOMERULAR FILTRATION RATE (test code=GFR) mL/min >=60 CREATININE (test code=CREAT) mg/dL 0.7-1.3 BUN/CREATININE RATIO (test code=BUN/CREA) 10-20 TOTAL PROTEIN (test code=PROT) gram/dL 6.4-8.2 ALBUMIN (test code=ALB) g/dL 3.4-5.0 GLOBULIN (test code=GLOB) gram/dL 2.7-4.2 ALBUMIN/GLOBULIN RATIO (test code=A/G) 0.75-1.50 CALCIUM (test code=CA) mg/dL 8.5-10.1 BILIRUBIN TOTAL (test code=BILT) mg/dL 0.0-1.0 SGOT/AST (test code=AST) IUnit/L 15-37 SGPT/ALT (test code=ALT) IUnit/L 12-78 ALKALINE PHOSPHATASE TOTAL (test code=ALKP) IUnit/L 45-117 PROTHROMBIN [id number] 12:49:00* Test Item Value Reference Range Comments PROTHROMBIN TIME PATIENT (test code=PTP) 24.1 seconds 9.0-14.0 INTERNATIONAL NORMAL RATIO (test code=INR) 2.0 0.8-1.2 The therapeutic range for oral anticoagulant therapy formost indications is an international normalized ratio (INR)of between 2.0 and 3.0. 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 YLIST ANTICOAGULANTS [id number] 12:31:00* Test Item Value Reference Range Comments GLUBED (test code=GLUBED) 265 mg/dL 74-106 Performed by certified hyster machine operator at [facility] [id number] 06:32:00* Test Item Value Reference Range Comments GLUBED (test code=GLUBED) 321 mg/dL 74-106 Performed by certified hyster machine operator at [facility] [id number] 06:07:00* Test Item Value Reference Range Comments GLUBED (test code=GLUBED) 263 mg/dL 74-106 Performed by certified hyster machine operator at [facility] - XR CHEST 1 [id number] 19:19:00 FAX: Candelario Nuñez MD [phone] [place]: St: ADM FAX: Linda Tavarez [phone] Name: KATHLEENVASYLVICKI [facility] : 1940 Age/S: 77[facility] [address] [facility]: [id number] Loc: [place] [address] Phys: Candelario Nuñez MD Acct: [id number] Dis Date: Status: ADM IN PHONE #: [phone] Exam Date: 04/28/2018 185 FAX #: [phone] Reason: NG TUBE PLACEMENT EXAMS: CPT CODE: [id number] XR CHEST 1 V 25674 EXAM: Chest x-ray, one view; INFORMATION: NG tube placement; IMPRESSION: 1. The tip of an NG tube is in the gastric fundus. 2. No acute abnormalities. at 1919 Reported and signed by: Ladarius Riley M.D. CC: Candelario Nuñez MD; Linda Tavarez Technologist: ROSHNI BLAND; Christian Minor, (R Trnscrd Date/Time/By: 04/28/2018 (1918) : By: ArielGRW Orig Print D/T: S: 04/28/2018 (1921) PAGE 1 Signed Report - CT ABD PELVIS W/O [id number] 17:29:00 Name: MILDREDVICKI [facility] : 1940 Age/S: 77 / M [address] Unit #: [id number] Loc: [place] [address] Phys: Vlad Miles PHARMACEUTICAL OPERATOR Acct: [id number] Di s Date: Status: ADM IN PHONE #: Exam Date: 04/28/2018 1625 FAX #: Reason: abd pain/tenderness/?hematoma on OAC EXAMS: CPT CODE: [id number] CT ABD PELVIS W/O CONT [id number] EXAM: CT of the abdomen a nd pelvis without contrast; INFORMATION: Abdominal pain and tender ness, hematoma, anemia; TECHNIQUE AND FINDINGS: CT dose redu ction protocol; 5 mm cuts through the abdomen and pelvis without contrast. There is a large dense fluid collection in the left rectus sheath c onsistent with an acute hematoma. This is new compared with a study from [facility] 2018. It measures 11 x 8 cm in diameter. There is also stranding within subcutaneous tissues of the lower anterior abdominal wall. No further changes. IMPRESSION: Large left rectus sheath h ematoma. at 1729 Reported and signed by: Ladarius Riley M.D. CC: Ron Miles PHARMACEUTICAL OPERATOR; Linda Tavarez Technologist:Bambi Suh RT( R) CTDI: DLP: Trnscb Date/Time: 04/28/2018 (1728) tPATO LOPEZ Orig Print D/T: S: 04/28/2018 (1731) CTDI: DLP: PAGE 1 Signed Report [id number] 17:02:00* Test Item Value Reference Range Comments GLUBED (test code=GLUBED) 154 mg/dL 74-106 Performed by certified hyster machine operator at [facility] PROTHROMBIN [id number] 12:37:00* Test Item Value Reference Range Comments PROTHROMBIN TIME PATIENT (test code=PTP) 16.0 seconds 9.0-14.0 INTERNATIONAL NORMAL RATIO (test code=INR) 1.4 0.8-1.2 The therapeutic range for oral anticoagulant therapy formost indications is an international normalized ratio (INR)of between 2.0 and 3.0. 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 YLIST ANTICOAGULANTS [id number] 12:28:00* Test Item Value Reference Range Comments GLUBED (test code=GLUBED) 191 mg/dL 74-106 Performed by certified hyster machine operator at [facility] - XR ABDOMEN AP 1 [id number] 09:12:00 FAX: Candelario Nuñez MD [phone] [place]: B St: [facility] FAX: Linda Tavarez [facility] [phone] Name: VICKI LEVY [facility] : 1940 Age/S: 77/M [address] [facility] Unit #: [id number] Loc: V.2046 [place] [address] Phys: Candelario Nuñez MD Acct: [id number] Dis Date: Status: ADM IN PHONE #: [phone] Exam Date: 04/28/2018 0833 FAX #: [phone] Reason: ABDOMINAL PAIN EXAMS: CPT CODE: [id number] XR ABDOMEN AP 1 V [id number] HISTORY: Abdominal pain. COMPARISON: CT of abdomen and pelvis from April 23, 2018. Moderate distention of the small bowel loops and air noted throughout the colon likely ileus. Follow-up betzy mmended. Patient is post cholecystectomy. No pathologic calcificat ions. IMPRESSION: Moderate distention of the s mall bowel loops and air throughout the colon may represent small bowel ileus. Follow-up. Electronically Signed by Gail Mora on 04/17 at 0912 Reported and signed by: Janes Peralta CC: Candelario Nuñez MD; Linda Tavarez Technologist: Marilin Vogel(R); Estela RICHARDS(R) Trns crd Date/Time/By: 04/28/2018 (911) : By: [email or web address] Orig Print D/T: S: 04/28/2018 (15) PAGE 1 Signed Report [id number] 07:02:00* Test Item Value Reference Range Comments GLUBED (test code=GLUBED) 221 mg/dL 74-106 Performed by certified hyster machine operator at [facility] CBC W/AUTO [id number] 06:44:00* Test Item Value Reference Range Comments WHITE BLOOD CELL (test code=WBC) 8.0 K/mm3 4.5-12.5 RED BLOOD CELL (test code=RBC) 3.51 mill/mm3 4.0-5.8 HEMOGLOBIN (test code=HGB) 8.3 gram/dL 13.0-17.5 HEMATOCRIT (test code=HCT) 29.6 % 42.0-52.0 MEAN CELL VOLUME (test code=MCV) 84.3 fL 80-98 MEAN CELL HGB (test code=MCH) 23.6 picogram 27.0-33.0 MEAN CELL HGB CONCETRATION (test code=MCHC) 28.0 gram/dL 33.0-36.0 RED CELL DISTRIBUTION WIDTH (test code=RDW) 19.4 % 11.6-16.2 RED CELL DISTRIBUTION WIDTH SD (test code=RDW-SD) 55.3 fL 37.0-51.0 PLATELET COUNT (test code=PLT) 294 K/mm3 150-450 MEAN PLATELET VOLUME (test code=MPV) 10.1 fL 6.7-11.0 NEUTROPHIL % (test code=NT%) 67.7 % 39.0-69.0 IMMATURE GRANULOCYTE % (test code=IG%) 0.7 % 0.0-5.0 LYMPHOCYTE % (test code=LY%) 18.3 % 25.0-55.0 MONOCYTE % (test code=MO%) 9.2 % 0.0-10.0 EOSINOPHIL % (test code=EO%) 3.6 % 0.0-5.0 BASOPHIL % (test code=BA%) 0.5 % 0.0-1.0 NUCLEATED RBC % (test code=NRBC%) 0.4 % 0-0 NEUTROPHIL # (test code=NT#) 5.44 K/mm3 1.8-7.7 IMMATURE GRANULOCYTE # (test code=IG#) 0.06 x10 3/uL 0-0.03 LYMPHOCYTE # (test code=LY#) 1.47 K/mm3 1.0-5.0 MONOCYTE # (test code=MO#) 0.74 K/mm3 0-0.8 EOSINOPHIL # (test code=EO#) 0.29 K/mm3 0.0-0.5 BASOPHIL # (test code=BA#) 0.04 K/mm3 0.0-0.2 NUCLEATED RBC # (test code=NRBC#) 0.03 K/mm3 0.0-0.1 MANUAL DIFF REQUIRED (test code=MDIFF) NO, ONLY SCAN NEEDED DIFFERENTIAL [id number] 06:44:00* Test Item Value Reference Range Comments STAIN ACCEPTABILITY (test code=STN ACCEPTABLE) STAIN ACCEPTABLE POLYCHROMASIA (test code=POLC) 2+ HYPOCHROMIA (test code=HYPO) 2+ POIKILOCYTOSIS (test code=POIK) 1+ ANISOCYTOSIS (test code=ANISO) 2+ MICROCYTOSIS (test code=MICR) 2+ ELLIPTOCYTES (test code=ELL) 1+ PLATELET ESTIMATE (test code=PLTEST) ADEQUATE PLATELET MORPHOLOGY (test code=PLTMORPH) NORMAL COMPREHENSIVE METABOLIC [id number] 06:12:00* Test Item Value Reference Range Comments SODIUM (test code=NA) 145 mmol/L 136-145 POTASSIUM (test code=K) 4.0 mmol/L 3.5-5.1 CHLORIDE (test code=CL) 114.0 mmol/L 98-107 CARBON DIOXIDE (test code=CO2) 24.0 mmol/L 21-32 ANION GAP (test code=GAP) 11.0 10-20 GLUCOSE (test code=GLU) 201 mg/dL 74-106 BLOOD UREA NITROGEN (test code=BUN) 16 mg/dL 7-18 GLOMERULAR FILTRATION RATE (test code=GFR) 54 mL/min >=60 Estimated GFR by using Modified MDRD formula.Chronic kidney disease is defined as either kidney damageor GFR <60 mL/min/1.73 m2 for >3 months. CREATININE (test code=CREAT) 1.30 mg/dL 0.7-1.3 BUN/CREATININE RATIO (test code=BUN/CREA) 12.3 10-20 TOTAL PROTEIN (test code=PROT) 6.1 gram/dL 6.4-8.2 ALBUMIN (test code=ALB) 2.5 g/dL 3.4-5.0 GLOBULIN (test code=GLOB) 3.6 gram/dL 2.7-4.2 ALBUMIN/GLOBULIN RATIO (test code=A/G) 0.7 0.75-1.50 CALCIUM (test code=CA) 8.4 mg/dL 8.5-10.1 BILIRUBIN TOTAL (test code=BILT) 0.30 mg/dL 0.0-1.0 SGOT/AST (test code=AST) 20 IUnit/L 15-37 SGPT/ALT (test code=ALT) 43 IUnit/L 12-78 ALKALINE PHOSPHATASE TOTAL (test code=ALKP) 84 IUnit/L 45-117 Note change in reference range due to change in reagent. COMPREHENSIVE METABOLIC [id number] 05:51:00* Test Item Value Reference Range Comments SODIUM (test code=NA) 145 mmol/L 136-145 POTASSIUM (test code=K) 4.0 mmol/L 3.5-5.1 CHLORIDE (test code=CL) 114.0 mmol/L 98-107 CARBON DIOXIDE (test code=CO2) mmol/L 21-32 ANION GAP (test code=GAP) 10-20 GLUCOSE (test code=GLU) mg/dL 74-106 BLOOD UREA NITROGEN (test code=BUN) mg/dL 7-18 GLOMERULAR FILTRATION RATE (test code=GFR) mL/min >=60 CREATININE (test code=CREAT) mg/dL 0.7-1.3 BUN/CREATININE RATIO (test code=BUN/CREA) 10-20 TOTAL PROTEIN (test code=PROT) gram/dL 6.4-8.2 ALBUMIN (test code=ALB) g/dL 3.4-5.0 GLOBULIN (test code=GLOB) gram/dL 2.7-4.2 ALBUMIN/GLOBULIN RATIO (test code=A/G) 0.75-1.50 CALCIUM (test code=CA) mg/dL 8.5-10.1 BILIRUBIN TOTAL (test code=BILT) mg/dL 0.0-1.0 SGOT/AST (test code=AST) IUnit/L 15-37 SGPT/ALT (test code=ALT) IUnit/L 12-78 ALKALINE PHOSPHATASE TOTAL (test code=ALKP) IUnit/L 45-117 PROTHROMBIN [id number] 05:49:00* Test Item Value Reference Range Comments PROTHROMBIN TIME PATIENT (test code=PTP) 15.5 seconds 9.0-14.0 INTERNATIONAL NORMAL RATIO (test code=INR) 1.3 0.8-1.2 The therapeutic range for oral anticoagulant therapy formost indications is an international normalized ratio (INR)of between 2.0 and 3.0. 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 YLIST ANTICOAGULANTS COUMADINCBC W/AUTO DIFF 2018-04-28 05:26:00* Test Item Value Reference Range Comments WHITE BLOOD CELL (test code=WBC) 8.0 K/mm3 4.5-12.5 RED BLOOD CELL (test code=RBC) 3.51 mill/mm3 4.0-5.8 HEMOGLOBIN (test code=HGB) 8.3 gram/dL 13.0-17.5 HEMATOCRIT (test code=HCT) 29.6 % 42.0-52.0 MEAN CELL VOLUME (test code=MCV) 84.3 fL 80-98 MEAN CELL HGB (test code=MCH) 23.6 picogram 27.0-33.0 MEAN CELL HGB CONCETRATION (test code=MCHC) 28.0 gram/dL 33.0-36.0 RED CELL DISTRIBUTION WIDTH (test code=RDW) 19.4 % 11.6-16.2 RED CELL DISTRIBUTION WIDTH SD (test code=RDW-SD) 55.3 fL 37.0-51.0 PLATELET COUNT (test code=PLT) 294 K/mm3 150-450 MEAN PLATELET VOLUME (test code=MPV) 10.1 fL 6.7-11.0 NEUTROPHIL % (test code=NT%) 67.7 % 39.0-69.0 IMMATURE GRANULOCYTE % (test code=IG%) 0.7 % 0.0-5.0 LYMPHOCYTE % (test code=LY%) 18.3 % 25.0-55.0 MONOCYTE % (test code=MO%) 9.2 % 0.0-10.0 EOSINOPHIL % (test code=EO%) 3.6 % 0.0-5.0 BASOPHIL % (test code=BA%) 0.5 % 0.0-1.0 NUCLEATED RBC % (test code=NRBC%) 0.4 % 0-0 NEUTROPHIL # (test code=NT#) 5.44 K/mm3 1.8-7.7 IMMATURE GRANULOCYTE # (test code=IG#) 0.06 x10 3/uL 0-0.03 LYMPHOCYTE # (test code=LY#) 1.47 K/mm3 1.0-5.0 MONOCYTE # (test code=MO#) 0.74 K/mm3 0-0.8 EOSINOPHIL # (test code=EO#) 0.29 K/mm3 0.0-0.5 BASOPHIL # (test code=BA#) 0.04 K/mm3 0.0-0.2 NUCLEATED RBC # (test code=NRBC#) 0.03 K/mm3 0.0-0.1 MANUAL DIFF REQUIRED (test code=MDIFF) NO, ONLY SCAN NEEDED DIFFERENTIAL [id number] 05:26:00* Test Item Value Reference Range Comments STAIN ACCEPTABILITY (test code=STN ACCEPTABLE) CABOT RINGS (test code=CAB) MORPHOLOGY COMMENT (test code=MOC) PLATELET ESTIMATE (test code=PLTEST) PLATELET MORPHOLOGY (test code=PLTMORPH) CBC W/AUTO [id number] 05:26:00* Test Item Value Reference Range Comments WHITE BLOOD CELL (test code=WBC) 8.0 K/mm3 4.5-12.5 RED BLOOD CELL (test code=RBC) 3.51 mill/mm3 4.0-5.8 HEMOGLOBIN (test code=HGB) 8.3 gram/dL 13.0-17.5 HEMATOCRIT (test code=HCT) 29.6 % 42.0-52.0 MEAN CELL VOLUME (test code=MCV) 84.3 fL 80-98 MEAN CELL HGB (test code=MCH) 23.6 picogram 27.0-33.0 MEAN CELL HGB CONCETRATION (test code=MCHC) 28.0 gram/dL 33.0-36.0 RED CELL DISTRIBUTION WIDTH (test code=RDW) 19.4 % 11.6-16.2 RED CELL DISTRIBUTION WIDTH SD (test code=RDW-SD) 55.3 fL 37.0-51.0 PLATELET COUNT (test code=PLT) 294 K/mm3 150-450 MEAN PLATELET VOLUME (test code=MPV) 10.1 fL 6.7-11.0 NEUTROPHIL % (test code=NT%) 67.7 % 39.0-69.0 IMMATURE GRANULOCYTE % (test code=IG%) 0.7 % 0.0-5.0 LYMPHOCYTE % (test code=LY%) 18.3 % 25.0-55.0 MONOCYTE % (test code=MO%) 9.2 % 0.0-10.0 EOSINOPHIL % (test code=EO%) 3.6 % 0.0-5.0 BASOPHIL % (test code=BA%) 0.5 % 0.0-1.0 NUCLEATED RBC % (test code=NRBC%) 0.4 % 0-0 NEUTROPHIL # (test code=NT#) 5.44 K/mm3 1.8-7.7 IMMATURE GRANULOCYTE # (test code=IG#) 0.06 x10 3/uL 0-0.03 LYMPHOCYTE # (test code=LY#) 1.47 K/mm3 1.0-5.0 MONOCYTE # (test code=MO#) 0.74 K/mm3 0-0.8 EOSINOPHIL # (test code=EO#) 0.29 K/mm3 0.0-0.5 BASOPHIL # (test code=BA#) 0.04 K/mm3 0.0-0.2 NUCLEATED RBC # (test code=NRBC#) 0.03 K/mm3 0.0-0.1 MANUAL DIFF REQUIRED (test code=MDIFF) NO, ONLY SCAN NEEDED DIFFERENTIAL [id number] 05:26:00* Test Item Value Reference Range Comments STAIN ACCEPTABILITY (test code=STN ACCEPTABLE) CABOT RINGS (test code=CAB) MORPHOLOGY COMMENT (test code=MOC) PLATELET ESTIMATE (test code=PLTEST) PLATELET MORPHOLOGY (test code=PLTMORPH) CBC W/AUTO [id number] 05:26:00* Test Item Value Reference Range Comments WHITE BLOOD CELL (test code=WBC) 8.0 K/mm3 4.5-12.5 RED BLOOD CELL (test code=RBC) 3.51 mill/mm3 4.0-5.8 HEMOGLOBIN (test code=HGB) 8.3 gram/dL 13.0-17.5 HEMATOCRIT (test code=HCT) 29.6 % 42.0-52.0 MEAN CELL VOLUME (test code=MCV) 84.3 fL 80-98 MEAN CELL HGB (test code=MCH) 23.6 picogram 27.0-33.0 MEAN CELL HGB CONCETRATION (test code=MCHC) 28.0 gram/dL 33.0-36.0 RED CELL DISTRIBUTION WIDTH (test code=RDW) 19.4 % 11.6-16.2 RED CELL DISTRIBUTION WIDTH SD (test code=RDW-SD) 55.3 fL 37.0-51.0 PLATELET COUNT (test code=PLT) 294 K/mm3 150-450 MEAN PLATELET VOLUME (test code=MPV) 10.1 fL 6.7-11.0 NEUTROPHIL % (test code=NT%) 67.7 % 39.0-69.0 IMMATURE GRANULOCYTE % (test code=IG%) 0.7 % 0.0-5.0 LYMPHOCYTE % (test code=LY%) 18.3 % 25.0-55.0 MONOCYTE % (test code=MO%) 9.2 % 0.0-10.0 EOSINOPHIL % (test code=EO%) 3.6 % 0.0-5.0 BASOPHIL % (test code=BA%) 0.5 % 0.0-1.0 NUCLEATED RBC % (test code=NRBC%) 0.4 % 0-0 NEUTROPHIL # (test code=NT#) 5.44 K/mm3 1.8-7.7 IMMATURE GRANULOCYTE # (test code=IG#) 0.06 x10 3/uL 0-0.03 LYMPHOCYTE # (test code=LY#) 1.47 K/mm3 1.0-5.0 MONOCYTE # (test code=MO#) 0.74 K/mm3 0-0.8 EOSINOPHIL # (test code=EO#) 0.29 K/mm3 0.0-0.5 BASOPHIL # (test code=BA#) 0.04 K/mm3 0.0-0.2 NUCLEATED RBC # (test code=NRBC#) 0.03 K/mm3 0.0-0.1 MANUAL DIFF REQUIRED (test code=MDIFF) NO, ONLY SCAN NEEDED DIFFERENTIAL [id number] 05:26:00* Test Item Value Reference Range Comments STAIN ACCEPTABILITY (test code=STN ACCEPTABLE) MORPHOLOGY COMMENT (test code=MOC) PLATELET ESTIMATE (test code=PLTEST) PLATELET MORPHOLOGY (test code=PLTMORPH) CBC W/AUTO [id number] 05:26:00* Test Item Value Reference Range Comments WHITE BLOOD CELL (test code=WBC) 8.0 K/mm3 4.5-12.5 RED BLOOD CELL (test code=RBC) 3.51 mill/mm3 4.0-5.8 HEMOGLOBIN (test code=HGB) 8.3 gram/dL 13.0-17.5 HEMATOCRIT (test code=HCT) 29.6 % 42.0-52.0 MEAN CELL VOLUME (test code=MCV) 84.3 fL 80-98 MEAN CELL HGB (test code=MCH) 23.6 picogram 27.0-33.0 MEAN CELL HGB CONCETRATION (test code=MCHC) 28.0 gram/dL 33.0-36.0 RED CELL DISTRIBUTION WIDTH (test code=RDW) 19.4 % 11.6-16.2 RED CELL DISTRIBUTION WIDTH SD (test code=RDW-SD) 55.3 fL 37.0-51.0 PLATELET COUNT (test code=PLT) 294 K/mm3 150-450 MEAN PLATELET VOLUME (test code=MPV) 10.1 fL 6.7-11.0 NEUTROPHIL % (test code=NT%) 67.7 % 39.0-69.0 IMMATURE GRANULOCYTE % (test code=IG%) 0.7 % 0.0-5.0 LYMPHOCYTE % (test code=LY%) 18.3 % 25.0-55.0 MONOCYTE % (test code=MO%) 9.2 % 0.0-10.0 EOSINOPHIL % (test code=EO%) 3.6 % 0.0-5.0 BASOPHIL % (test code=BA%) 0.5 % 0.0-1.0 NUCLEATED RBC % (test code=NRBC%) 0.4 % 0-0 NEUTROPHIL # (test code=NT#) 5.44 K/mm3 1.8-7.7 IMMATURE GRANULOCYTE # (test code=IG#) 0.06 x10 3/uL 0-0.03 LYMPHOCYTE # (test code=LY#) 1.47 K/mm3 1.0-5.0 MONOCYTE # (test code=MO#) 0.74 K/mm3 0-0.8 EOSINOPHIL # (test code=EO#) 0.29 K/mm3 0.0-0.5 BASOPHIL # (test code=BA#) 0.04 K/mm3 0.0-0.2 NUCLEATED RBC # (test code=NRBC#) 0.03 K/mm3 0.0-0.1 MANUAL DIFF REQUIRED (test code=MDIFF) NO, ONLY SCAN NEEDED DIFFERENTIAL [id number] 05:26:00* Test Item Value Reference Range Comments STAIN ACCEPTABILITY (test code=STN ACCEPTABLE) CABOT RINGS (test code=CAB) MORPHOLOGY COMMENT (test code=MOC) PLATELET ESTIMATE (test code=PLTEST) PLATELET MORPHOLOGY (test code=PLTMORPH) CELIAC DISEASE [id number] 05:15:00* Test Item Value Reference Range Comments IMMUNOGLOBULIN A (test code=IGA) 285 mg/dL 61-437 Performed At: [address] [id number] Sanjai MD Ph:[phone] At: [facility] [id number] [place], [place] [id number] Kyle L MD Ph:[phone] TISSUE TRANSGLUTAMINASE IGA (test code=TTGIGAAB) <2 U/mL 0-3 Negative 0 - 3 Weak Positive 4 - 10 Positive >10 Tissue Transglutaminase (tTG) has been identified as the endomysial antigen. Studies have demonstr- ated that endomysial IgA antibodies have over 99% specificity for gluten sensitive enteropathy. AB ENDOMYSIAL IGA (test code=ENDOMAAB) Negative Negative TISSUE TRANSGLUTAMINASE IGG (test code=TTGIGGAB) 4 U/mL 0-5 Negative 0 - 5 Weak Positive 6 - 9 Positive >9 GLIADIN ANTIBODY, IGG (test code=GLIAB) 4 units 0-19 Negative 0 - 19 Weak Positive 20 - 30 Moderate to Strong Positive >30 GLIADIN ANTIBODY, IGA (test code=GLIAABA) 4 units 0-19 Negative 0 - 19 Weak Positive 20 - 30 Moderate to Strong Positive >30 [id number] 21:20:00* Test Item Value Reference Range Comments GLUBED (test code=GLUBED) 234 mg/dL 74-106 Performed by certified hyster machine operator at [facility] [id number] 19:00:00* Test Item Value Reference Range Comments GLUBED (test code=GLUBED) 208 mg/dL 74-106 Performed by certified hyster machine operator at [facility] PROTHROMBIN [id number] 13:57:00* Test Item Value Reference Range Comments PROTHROMBIN TIME PATIENT (test code=PTP) 14.9 seconds 9.0-14.0 INTERNATIONAL NORMAL RATIO (test code=INR) 1.2 0.8-1.2 The therapeutic range for oral anticoagulant therapy formost indications is an international normalized ratio (INR)of between 2.0 and 3.0. The recommended therapeutic INRrange for various clinical situations is listed below: Clinical Situation INR range Pulmonary e mbolism treatment (2.0-3.0)Venous thrombosis treatmentVenous thrombosis prophylaxis (high risk surgery)Prevention of systemic embolism from: Acute myocardial infarction Valvular heart disease Atrial fibrillation Mechanical prosthetic heart valves (2.5-3.5) PT IS EATING LUNCH ASK LAB TO COME BACK AFTER LESA SUERO .V.LAB.AB 04/27/18 1142I S PATIENT ON ANTICOAGULANTS? YLIST ANTICOAGULANTS [id number] 13:01:00* Test Item Value Reference Range Comments GLUBED (test code=GLUBED) 235 mg/dL 74-106 Performed by certified hyster machine operator at [facility] AB ANTI-PARIETAL [id number] 12:11:00* Test Item Value Reference Range Comments AB ANTI-PARIETAL CELL (test code=PARIAB) 2.3 Units 0.0-20.0 Negative 0.0 - 20.0 Equivocal 20.1 - 24.9 Positive >24.9Parietal Cell Antibodies are found in 90% of patientswith pernicious anemia and 30% of first degreerelatives with pernicious anemia.Performed At: [facility] [address] [id number] Trejo MD Ph:[phone] CBC W/AUTO [id number] 06:41:00* Test Item Value Reference Range Comments WHITE BLOOD CELL (test code=WBC) 6.5 K/mm3 4.5-12.5 RED BLOOD CELL (test code=RBC) 3.19 mill/mm3 4.0-5.8 HEMOGLOBIN (test code=HGB) 7.4 gram/dL 13.0-17.5 HEMATOCRIT (test code=HCT) 26.1 % 42.0-52.0 MEAN CELL VOLUME (test code=MCV) 81.8 fL 80-98 MEAN CELL HGB (test code=MCH) 23.2 picogram 27.0-33.0 MEAN CELL HGB CONCETRATION (test code=MCHC) 28.4 gram/dL 33.0-36.0 RED CELL DISTRIBUTION WIDTH (test code=RDW) 18.5 % 11.6-16.2 RED CELL DISTRIBUTION WIDTH SD (test code=RDW-SD) 54.4 fL 37.0-51.0 PLATELET COUNT (test code=PLT) 290 K/mm3 150-450 MEAN PLATELET VOLUME (test code=MPV) 9.4 fL 6.7-11.0 NEUTROPHIL % (test code=NT%) 59.1 % 39.0-69.0 IMMATURE GRANULOCYTE % (test code=IG%) 0.9 % 0.0-5.0 LYMPHOCYTE % (test code=LY%) 26.1 % 25.0-55.0 MONOCYTE % (test code=MO%) 9.1 % 0.0-10.0 EOSINOPHIL % (test code=EO%) 4.2 % 0.0-5.0 BASOPHIL % (test code=BA%) 0.6 % 0.0-1.0 NUCLEATED RBC % (test code=NRBC%) 0.6 % 0-0 NEUTROPHIL # (test code=NT#) 3.83 K/mm3 1.8-7.7 IMMATURE GRANULOCYTE # (test code=IG#) 0.06 x10 3/uL 0-0.03 LYMPHOCYTE # (test code=LY#) 1.69 K/mm3 1.0-5.0 MONOCYTE # (test code=MO#) 0.59 K/mm3 0-0.8 EOSINOPHIL # (test code=EO#) 0.27 K/mm3 0.0-0.5 BASOPHIL # (test code=BA#) 0.04 K/mm3 0.0-0.2 NUCLEATED RBC # (test code=NRBC#) 0.04 K/mm3 0.0-0.1 MANUAL DIFF REQUIRED (test code=MDIFF) NO, ONLY SCAN NEEDED DIFFERENTIAL [id number] 06:41:00* Test Item Value Reference Range Comments STAIN ACCEPTABILITY (test code=STN ACCEPTABLE) STAIN ACCEPTABLE ANISOCYTOSIS (test code=ANISO) 1+ MICROCYTOSIS (test code=MICR) 1+ PLATELET ESTIMATE (test code=PLTEST) ADEQUATE PLATELET MORPHOLOGY (test code=PLTMORPH) NORMAL COMPREHENSIVE METABOLIC [id number] 06:07:00* Test Item Value Reference Range Comments SODIUM (test code=NA) 146 mmol/L 136-145 POTASSIUM (test code=K) 3.8 mmol/L 3.5-5.1 CHLORIDE (test code=CL) 116.0 mmol/L 98-107 CARBON DIOXIDE (test code=CO2) 23.0 mmol/L 21-32 ANION GAP (test code=GAP) 10.8 10-20 GLUCOSE (test code=GLU) 165 mg/dL 74-106 BLOOD UREA NITROGEN (test code=BUN) 17 mg/dL 7-18 GLOMERULAR FILTRATION RATE (test code=GFR) 54 mL/min >=60 Estimated GFR by using Modified MDRD formula.Chronic kidney disease is defined as either kidney damageor GFR <60 mL/min/1.73 m2 for >3 months. CREATININE (test code=CREAT) 1.30 mg/dL 0.7-1.3 BUN/CREATININE RATIO (test code=BUN/CREA) 13.1 10-20 TOTAL PROTEIN (test code=PROT) 6.3 gram/dL 6.4-8.2 ALBUMIN (test code=ALB) 2.3 g/dL 3.4-5.0 GLOBULIN (test code=GLOB) 4.0 gram/dL 2.7-4.2 ALBUMIN/GLOBULIN RATIO (test code=A/G) 0.6 0.75-1.50 CALCIUM (test code=CA) 8.1 mg/dL 8.5-10.1 BILIRUBIN TOTAL (test code=BILT) 0.20 mg/dL 0.0-1.0 SGOT/AST (test code=AST) 19 IUnit/L 15-37 SGPT/ALT (test code=ALT) 34 IUnit/L 12-78 ALKALINE PHOSPHATASE TOTAL (test code=ALKP) 77 IUnit/L 45-117 Note change in reference range due to change in reagent. [id number] 05:48:00* Test Item Value Reference Range Comments GLUBED (test code=GLUBED) 177 mg/dL 74-106 Performed by certified hyster machine operator at [facility] COMPREHENSIVE METABOLIC [id number] 05:44:00* Test Item Value Reference Range Comments SODIUM (test code=NA) 146 mmol/L 136-145 POTASSIUM (test code=K) 3.8 mmol/L 3.5-5.1 CHLORIDE (test code=CL) 116.0 mmol/L 98-107 CARBON DIOXIDE (test code=CO2) mmol/L 21-32 ANION GAP (test code=GAP) 10-20 GLUCOSE (test code=GLU) mg/dL 74-106 BLOOD UREA NITROGEN (test code=BUN) mg/dL 7-18 GLOMERULAR FILTRATION RATE (test code=GFR) mL/min >=60 CREATININE (test code=CREAT) mg/dL 0.7-1.3 BUN/CREATININE RATIO (test code=BUN/CREA) 10-20 TOTAL PROTEIN (test code=PROT) gram/dL 6.4-8.2 ALBUMIN (test code=ALB) g/dL 3.4-5.0 GLOBULIN (test code=GLOB) gram/dL 2.7-4.2 ALBUMIN/GLOBULIN RATIO (test code=A/G) 0.75-1.50 CALCIUM (test code=CA) mg/dL 8.5-10.1 BILIRUBIN TOTAL (test code=BILT) mg/dL 0.0-1.0 SGOT/AST (test code=AST) IUnit/L 15-37 SGPT/ALT (test code=ALT) IUnit/L 12-78 ALKALINE PHOSPHATASE TOTAL (test code=ALKP) IUnit/L 45-117 PROTHROMBIN [id number] 05:39:00* Test Item Value Reference Range Comments PROTHROMBIN TIME PATIENT (test code=PTP) 15.0 seconds 9.0-14.0 INTERNATIONAL NORMAL RATIO (test code=INR) 1.2 0.8-1.2 The therapeutic range for oral anticoagulant therapy formost indications is an international normalized ratio (INR)of between 2.0 and 3.0. 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 YLIST ANTICOAGULANTS COUMADINCBC W/AUTO DIFF 2018-04-27 05:34:00* Test Item Value Reference Range Comments WHITE BLOOD CELL (test code=WBC) 6.5 K/mm3 4.5-12.5 RED BLOOD CELL (test code=RBC) 3.19 mill/mm3 4.0-5.8 HEMOGLOBIN (test code=HGB) 7.4 gram/dL 13.0-17.5 HEMATOCRIT (test code=HCT) 26.1 % 42.0-52.0 MEAN CELL VOLUME (test code=MCV) 81.8 fL 80-98 MEAN CELL HGB (test code=MCH) 23.2 picogram 27.0-33.0 MEAN CELL HGB CONCETRATION (test code=MCHC) 28.4 gram/dL 33.0-36.0 RED CELL DISTRIBUTION WIDTH (test code=RDW) 18.5 % 11.6-16.2 RED CELL DISTRIBUTION WIDTH SD (test code=RDW-SD) 54.4 fL 37.0-51.0 PLATELET COUNT (test code=PLT) 290 K/mm3 150-450 MEAN PLATELET VOLUME (test code=MPV) 9.4 fL 6.7-11.0 NEUTROPHIL % (test code=NT%) 59.1 % 39.0-69.0 IMMATURE GRANULOCYTE % (test code=IG%) 0.9 % 0.0-5.0 LYMPHOCYTE % (test code=LY%) 26.1 % 25.0-55.0 MONOCYTE % (test code=MO%) 9.1 % 0.0-10.0 EOSINOPHIL % (test code=EO%) 4.2 % 0.0-5.0 BASOPHIL % (test code=BA%) 0.6 % 0.0-1.0 NUCLEATED RBC % (test code=NRBC%) 0.6 % 0-0 NEUTROPHIL # (test code=NT#) 3.83 K/mm3 1.8-7.7 IMMATURE GRANULOCYTE # (test code=IG#) 0.06 x10 3/uL 0-0.03 LYMPHOCYTE # (test code=LY#) 1.69 K/mm3 1.0-5.0 MONOCYTE # (test code=MO#) 0.59 K/mm3 0-0.8 EOSINOPHIL # (test code=EO#) 0.27 K/mm3 0.0-0.5 BASOPHIL # (test code=BA#) 0.04 K/mm3 0.0-0.2 NUCLEATED RBC # (test code=NRBC#) 0.04 K/mm3 0.0-0.1 MANUAL DIFF REQUIRED (test code=MDIFF) NO, ONLY SCAN NEEDED DIFFERENTIAL [id number] 05:34:00* Test Item Value Reference Range Comments STAIN ACCEPTABILITY (test code=STN ACCEPTABLE) CABOT RINGS (test code=CAB) MORPHOLOGY COMMENT (test code=MOC) PLATELET ESTIMATE (test code=PLTEST) PLATELET MORPHOLOGY (test code=PLTMORPH) CBC W/AUTO [id number] 05:34:00* Test Item Value Reference Range Comments WHITE BLOOD CELL (test code=WBC) 6.5 K/mm3 4.5-12.5 RED BLOOD CELL (test code=RBC) 3.19 mill/mm3 4.0-5.8 HEMOGLOBIN (test code=HGB) 7.4 gram/dL 13.0-17.5 HEMATOCRIT (test code=HCT) 26.1 % 42.0-52.0 MEAN CELL VOLUME (test code=MCV) 81.8 fL 80-98 MEAN CELL HGB (test code=MCH) 23.2 picogram 27.0-33.0 MEAN CELL HGB CONCETRATION (test code=MCHC) 28.4 gram/dL 33.0-36.0 RED CELL DISTRIBUTION WIDTH (test code=RDW) 18.5 % 11.6-16.2 RED CELL DISTRIBUTION WIDTH SD (test code=RDW-SD) 54.4 fL 37.0-51.0 PLATELET COUNT (test code=PLT) 290 K/mm3 150-450 MEAN PLATELET VOLUME (test code=MPV) 9.4 fL 6.7-11.0 NEUTROPHIL % (test code=NT%) 59.1 % 39.0-69.0 IMMATURE GRANULOCYTE % (test code=IG%) 0.9 % 0.0-5.0 LYMPHOCYTE % (test code=LY%) 26.1 % 25.0-55.0 MONOCYTE % (test code=MO%) 9.1 % 0.0-10.0 EOSINOPHIL % (test code=EO%) 4.2 % 0.0-5.0 BASOPHIL % (test code=BA%) 0.6 % 0.0-1.0 NUCLEATED RBC % (test code=NRBC%) 0.6 % 0-0 NEUTROPHIL # (test code=NT#) 3.83 K/mm3 1.8-7.7 IMMATURE GRANULOCYTE # (test code=IG#) 0.06 x10 3/uL 0-0.03 LYMPHOCYTE # (test code=LY#) 1.69 K/mm3 1.0-5.0 MONOCYTE # (test code=MO#) 0.59 K/mm3 0-0.8 EOSINOPHIL # (test code=EO#) 0.27 K/mm3 0.0-0.5 BASOPHIL # (test code=BA#) 0.04 K/mm3 0.0-0.2 NUCLEATED RBC # (test code=NRBC#) 0.04 K/mm3 0.0-0.1 MANUAL DIFF REQUIRED (test code=MDIFF) NO, ONLY SCAN NEEDED DIFFERENTIAL [id number] 05:34:00* Test Item Value Reference Range Comments STAIN ACCEPTABILITY (test code=STN ACCEPTABLE) MORPHOLOGY COMMENT (test code=MOC) PLATELET ESTIMATE (test code=PLTEST) PLATELET MORPHOLOGY (test code=PLTMORPH) CBC W/AUTO [id number] 05:34:00* Test Item Value Reference Range Comments WHITE BLOOD CELL (test code=WBC) 6.5 K/mm3 4.5-12.5 RED BLOOD CELL (test code=RBC) 3.19 mill/mm3 4.0-5.8 HEMOGLOBIN (test code=HGB) 7.4 gram/dL 13.0-17.5 HEMATOCRIT (test code=HCT) 26.1 % 42.0-52.0 MEAN CELL VOLUME (test code=MCV) 81.8 fL 80-98 MEAN CELL HGB (test code=MCH) 23.2 picogram 27.0-33.0 MEAN CELL HGB CONCETRATION (test code=MCHC) 28.4 gram/dL 33.0-36.0 RED CELL DISTRIBUTION WIDTH (test code=RDW) 18.5 % 11.6-16.2 RED CELL DISTRIBUTION WIDTH SD (test code=RDW-SD) 54.4 fL 37.0-51.0 PLATELET COUNT (test code=PLT) 290 K/mm3 150-450 MEAN PLATELET VOLUME (test code=MPV) 9.4 fL 6.7-11.0 NEUTROPHIL % (test code=NT%) 59.1 % 39.0-69.0 IMMATURE GRANULOCYTE % (test code=IG%) 0.9 % 0.0-5.0 LYMPHOCYTE % (test code=LY%) 26.1 % 25.0-55.0 MONOCYTE % (test code=MO%) 9.1 % 0.0-10.0 EOSINOPHIL % (test code=EO%) 4.2 % 0.0-5.0 BASOPHIL % (test code=BA%) 0.6 % 0.0-1.0 NUCLEATED RBC % (test code=NRBC%) 0.6 % 0-0 NEUTROPHIL # (test code=NT#) 3.83 K/mm3 1.8-7.7 IMMATURE GRANULOCYTE # (test code=IG#) 0.06 x10 3/uL 0-0.03 LYMPHOCYTE # (test code=LY#) 1.69 K/mm3 1.0-5.0 MONOCYTE # (test code=MO#) 0.59 K/mm3 0-0.8 EOSINOPHIL # (test code=EO#) 0.27 K/mm3 0.0-0.5 BASOPHIL # (test code=BA#) 0.04 K/mm3 0.0-0.2 NUCLEATED RBC # (test code=NRBC#) 0.04 K/mm3 0.0-0.1 MANUAL DIFF REQUIRED (test code=MDIFF) NO, ONLY SCAN NEEDED DIFFERENTIAL [id number] 05:34:00* Test Item Value Reference Range Comments STAIN ACCEPTABILITY (test code=STN ACCEPTABLE) MORPHOLOGY COMMENT (test code=MOC) PLATELET ESTIMATE (test code=PLTEST) PLATELET MORPHOLOGY (test code=PLTMORPH) CBC W/AUTO [id number] 05:34:00* Test Item Value Reference Range Comments WHITE BLOOD CELL (test code=WBC) 6.5 K/mm3 4.5-12.5 RED BLOOD CELL (test code=RBC) 3.19 mill/mm3 4.0-5.8 HEMOGLOBIN (test code=HGB) 7.4 gram/dL 13.0-17.5 HEMATOCRIT (test code=HCT) 26.1 % 42.0-52.0 MEAN CELL VOLUME (test code=MCV) 81.8 fL 80-98 MEAN CELL HGB (test code=MCH) 23.2 picogram 27.0-33.0 MEAN CELL HGB CONCETRATION (test code=MCHC) 28.4 gram/dL 33.0-36.0 RED CELL DISTRIBUTION WIDTH (test code=RDW) 18.5 % 11.6-16.2 RED CELL DISTRIBUTION WIDTH SD (test code=RDW-SD) 54.4 fL 37.0-51.0 PLATELET COUNT (test code=PLT) 290 K/mm3 150-450 MEAN PLATELET VOLUME (test code=MPV) 9.4 fL 6.7-11.0 NEUTROPHIL % (test code=NT%) 59.1 % 39.0-69.0 IMMATURE GRANULOCYTE % (test code=IG%) 0.9 % 0.0-5.0 LYMPHOCYTE % (test code=LY%) 26.1 % 25.0-55.0 MONOCYTE % (test code=MO%) 9.1 % 0.0-10.0 EOSINOPHIL % (test code=EO%) 4.2 % 0.0-5.0 BASOPHIL % (test code=BA%) 0.6 % 0.0-1.0 NUCLEATED RBC % (test code=NRBC%) 0.6 % 0-0 NEUTROPHIL # (test code=NT#) 3.83 K/mm3 1.8-7.7 IMMATURE GRANULOCYTE # (test code=IG#) 0.06 x10 3/uL 0-0.03 LYMPHOCYTE # (test code=LY#) 1.69 K/mm3 1.0-5.0 MONOCYTE # (test code=MO#) 0.59 K/mm3 0-0.8 EOSINOPHIL # (test code=EO#) 0.27 K/mm3 0.0-0.5 BASOPHIL # (test code=BA#) 0.04 K/mm3 0.0-0.2 NUCLEATED RBC # (test code=NRBC#) 0.04 K/mm3 0.0-0.1 MANUAL DIFF REQUIRED (test code=MDIFF) NO, ONLY SCAN NEEDED DIFFERENTIAL [id number] 05:34:00* Test Item Value Reference Range Comments STAIN ACCEPTABILITY (test code=STN ACCEPTABLE) CABOT RINGS (test code=CAB) MORPHOLOGY COMMENT (test code=MOC) PLATELET ESTIMATE (test code=PLTEST) PLATELET MORPHOLOGY (test code=PLTMORPH) [id number] 20:42:00* Test Item Value Reference Range Comments GLUBED (test code=GLUBED) 219 mg/dL 74-106 Performed by certified hyster machine operator at [facility] [id number] 17:05:00* Test Item Value Reference Range Comments GLUBED (test code=GLUBED) 246 mg/dL 74-106 Performed by certified hyster machine operator at [facility] CBC W/AUTO [id number] 14:35:00* Test Item Value Reference Range Comments WHITE BLOOD CELL (test code=WBC) 6.9 K/mm3 4.5-12.5 RED BLOOD CELL (test code=RBC) 3.17 mill/mm3 4.0-5.8 HEMOGLOBIN (test code=HGB) 7.3 gram/dL 13.0-17.5 HEMATOCRIT (test code=HCT) 26.0 % 42.0-52.0 MEAN CELL VOLUME (test code=MCV) 82.0 fL 80-98 MEAN CELL HGB (test code=MCH) 23.0 picogram 27.0-33.0 MEAN CELL HGB CONCETRATION (test code=MCHC) 28.1 gram/dL 33.0-36.0 RED CELL DISTRIBUTION WIDTH (test code=RDW) 18.1 % 11.6-16.2 RED CELL DISTRIBUTION WIDTH SD (test code=RDW-SD) 53.4 fL 37.0-51.0 PLATELET COUNT (test code=PLT) 306 K/mm3 150-450 MEAN PLATELET VOLUME (test code=MPV) 9.5 fL 6.7-11.0 NEUTROPHIL % (test code=NT%) 61.5 % 39.0-69.0 IMMATURE GRANULOCYTE % (test code=IG%) 0.9 % 0.0-5.0 LYMPHOCYTE % (test code=LY%) 24.4 % 25.0-55.0 MONOCYTE % (test code=MO%) 8.9 % 0.0-10.0 EOSINOPHIL % (test code=EO%) 3.7 % 0.0-5.0 BASOPHIL % (test code=BA%) 0.6 % 0.0-1.0 NUCLEATED RBC % (test code=NRBC%) 0.0 % 0-0 NEUTROPHIL # (test code=NT#) 4.27 K/mm3 1.8-7.7 IMMATURE GRANULOCYTE # (test code=IG#) 0.06 x10 3/uL 0-0.03 LYMPHOCYTE # (test code=LY#) 1.69 K/mm3 1.0-5.0 MONOCYTE # (test code=MO#) 0.62 K/mm3 0-0.8 EOSINOPHIL # (test code=EO#) 0.26 K/mm3 0.0-0.5 BASOPHIL # (test code=BA#) 0.04 K/mm3 0.0-0.2 NUCLEATED RBC # (test code=NRBC#) 0.00 K/mm3 0.0-0.1 MANUAL DIFF REQUIRED (test code=MDIFF) NO, ONLY SCAN NEEDED DIFFERENTIAL [id number] 14:35:00* Test Item Value Reference Range Comments STAIN ACCEPTABILITY (test code=STN ACCEPTABLE) STAIN ACCEPTABLE POLYCHROMASIA (test code=POLC) 1+ HYPOCHROMIA (test code=HYPO) 2+ POIKILOCYTOSIS (test code=POIK) 1+ ANISOCYTOSIS (test code=ANISO) 2+ PLATELET ESTIMATE (test code=PLTEST) ADEQUATE PLATELET MORPHOLOGY (test code=PLTMORPH) NORMAL PROTHROMBIN [id number] 12:19:00* Test Item Value Reference Range Comments PROTHROMBIN TIME PATIENT (test code=PTP) 14.3 seconds 9.0-14.0 INTERNATIONAL NORMAL RATIO (test code=INR) 1.2 0.8-1.2 The therapeutic range for oral anticoagulant therapy formost indications is an international normalized ratio (INR)of between 2.0 and 3.0. 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 YLIST ANTICOAGULANTS [id number] 12:07:00* Test Item Value Reference Range Comments GLUBED (test code=GLUBED) 224 mg/dL 74-106 Performed by certified hyster machine operator at [facility] CBC W/AUTO [id number] 10:43:00* Test Item Value Reference Range Comments WHITE BLOOD CELL (test code=WBC) 6.9 K/mm3 4.5-12.5 RED BLOOD CELL (test code=RBC) 3.17 mill/mm3 4.0-5.8 HEMOGLOBIN (test code=HGB) 7.3 gram/dL 13.0-17.5 HEMATOCRIT (test code=HCT) 26.0 % 42.0-52.0 MEAN CELL VOLUME (test code=MCV) 82.0 fL 80-98 MEAN CELL HGB (test code=MCH) 23.0 picogram 27.0-33.0 MEAN CELL HGB CONCETRATION (test code=MCHC) 28.1 gram/dL 33.0-36.0 RED CELL DISTRIBUTION WIDTH (test code=RDW) 18.1 % 11.6-16.2 RED CELL DISTRIBUTION WIDTH SD (test code=RDW-SD) 53.4 fL 37.0-51.0 PLATELET COUNT (test code=PLT) 306 K/mm3 150-450 MEAN PLATELET VOLUME (test code=MPV) 9.5 fL 6.7-11.0 NEUTROPHIL % (test code=NT%) 61.5 % 39.0-69.0 IMMATURE GRANULOCYTE % (test code=IG%) 0.9 % 0.0-5.0 LYMPHOCYTE % (test code=LY%) 24.4 % 25.0-55.0 MONOCYTE % (test code=MO%) 8.9 % 0.0-10.0 EOSINOPHIL % (test code=EO%) 3.7 % 0.0-5.0 BASOPHIL % (test code=BA%) 0.6 % 0.0-1.0 NUCLEATED RBC % (test code=NRBC%) 0.0 % 0-0 NEUTROPHIL # (test code=NT#) 4.27 K/mm3 1.8-7.7 IMMATURE GRANULOCYTE # (test code=IG#) 0.06 x10 3/uL 0-0.03 LYMPHOCYTE # (test code=LY#) 1.69 K/mm3 1.0-5.0 MONOCYTE # (test code=MO#) 0.62 K/mm3 0-0.8 EOSINOPHIL # (test code=EO#) 0.26 K/mm3 0.0-0.5 BASOPHIL # (test code=BA#) 0.04 K/mm3 0.0-0.2 NUCLEATED RBC # (test code=NRBC#) 0.00 K/mm3 0.0-0.1 MANUAL DIFF REQUIRED (test code=MDIFF) NO, ONLY SCAN NEEDED DIFFERENTIAL [id number] 10:43:00* Test Item Value Reference Range Comments STAIN ACCEPTABILITY (test code=STN ACCEPTABLE) CABOT RINGS (test code=CAB) MORPHOLOGY COMMENT (test code=MOC) PLATELET ESTIMATE (test code=PLTEST) PLATELET MORPHOLOGY (test code=PLTMORPH) CBC W/AUTO [id number] 10:43:00* Test Item Value Reference Range Comments WHITE BLOOD CELL (test code=WBC) 6.9 K/mm3 4.5-12.5 RED BLOOD CELL (test code=RBC) 3.17 mill/mm3 4.0-5.8 HEMOGLOBIN (test code=HGB) 7.3 gram/dL 13.0-17.5 HEMATOCRIT (test code=HCT) 26.0 % 42.0-52.0 MEAN CELL VOLUME (test code=MCV) 82.0 fL 80-98 MEAN CELL HGB (test code=MCH) 23.0 picogram 27.0-33.0 MEAN CELL HGB CONCETRATION (test code=MCHC) 28.1 gram/dL 33.0-36.0 RED CELL DISTRIBUTION WIDTH (test code=RDW) 18.1 % 11.6-16.2 RED CELL DISTRIBUTION WIDTH SD (test code=RDW-SD) 53.4 fL 37.0-51.0 PLATELET COUNT (test code=PLT) 306 K/mm3 150-450 MEAN PLATELET VOLUME (test code=MPV) 9.5 fL 6.7-11.0 NEUTROPHIL % (test code=NT%) 61.5 % 39.0-69.0 IMMATURE GRANULOCYTE % (test code=IG%) 0.9 % 0.0-5.0 LYMPHOCYTE % (test code=LY%) 24.4 % 25.0-55.0 MONOCYTE % (test code=MO%) 8.9 % 0.0-10.0 EOSINOPHIL % (test code=EO%) 3.7 % 0.0-5.0 BASOPHIL % (test code=BA%) 0.6 % 0.0-1.0 NUCLEATED RBC % (test code=NRBC%) 0.0 % 0-0 NEUTROPHIL # (test code=NT#) 4.27 K/mm3 1.8-7.7 IMMATURE GRANULOCYTE # (test code=IG#) 0.06 x10 3/uL 0-0.03 LYMPHOCYTE # (test code=LY#) 1.69 K/mm3 1.0-5.0 MONOCYTE # (test code=MO#) 0.62 K/mm3 0-0.8 EOSINOPHIL # (test code=EO#) 0.26 K/mm3 0.0-0.5 BASOPHIL # (test code=BA#) 0.04 K/mm3 0.0-0.2 NUCLEATED RBC # (test code=NRBC#) 0.00 K/mm3 0.0-0.1 MANUAL DIFF REQUIRED (test code=MDIFF) NO, ONLY SCAN NEEDED DIFFERENTIAL [id number] 10:43:00* Test Item Value Reference Range Comments STAIN ACCEPTABILITY (test code=STN ACCEPTABLE) MORPHOLOGY COMMENT (test code=MOC) PLATELET ESTIMATE (test code=PLTEST) PLATELET MORPHOLOGY (test code=PLTMORPH) CBC W/AUTO [id number] 10:42:00* Test Item Value Reference Range Comments WHITE BLOOD CELL (test code=WBC) 6.9 K/mm3 4.5-12.5 RED BLOOD CELL (test code=RBC) 3.17 mill/mm3 4.0-5.8 HEMOGLOBIN (test code=HGB) 7.3 gram/dL 13.0-17.5 HEMATOCRIT (test code=HCT) 26.0 % 42.0-52.0 MEAN CELL VOLUME (test code=MCV) 82.0 fL 80-98 MEAN CELL HGB (test code=MCH) 23.0 picogram 27.0-33.0 MEAN CELL HGB CONCETRATION (test code=MCHC) 28.1 gram/dL 33.0-36.0 RED CELL DISTRIBUTION WIDTH (test code=RDW) 18.1 % 11.6-16.2 RED CELL DISTRIBUTION WIDTH SD (test code=RDW-SD) 53.4 fL 37.0-51.0 PLATELET COUNT (test code=PLT) 306 K/mm3 150-450 MEAN PLATELET VOLUME (test code=MPV) 9.5 fL 6.7-11.0 NEUTROPHIL % (test code=NT%) 61.5 % 39.0-69.0 IMMATURE GRANULOCYTE % (test code=IG%) 0.9 % 0.0-5.0 LYMPHOCYTE % (test code=LY%) 24.4 % 25.0-55.0 MONOCYTE % (test code=MO%) 8.9 % 0.0-10.0 EOSINOPHIL % (test code=EO%) 3.7 % 0.0-5.0 BASOPHIL % (test code=BA%) 0.6 % 0.0-1.0 NUCLEATED RBC % (test code=NRBC%) 0.0 % 0-0 NEUTROPHIL # (test code=NT#) 4.27 K/mm3 1.8-7.7 IMMATURE GRANULOCYTE # (test code=IG#) 0.06 x10 3/uL 0-0.03 LYMPHOCYTE # (test code=LY#) 1.69 K/mm3 1.0-5.0 MONOCYTE # (test code=MO#) 0.62 K/mm3 0-0.8 EOSINOPHIL # (test code=EO#) 0.26 K/mm3 0.0-0.5 BASOPHIL # (test code=BA#) 0.04 K/mm3 0.0-0.2 NUCLEATED RBC # (test code=NRBC#) 0.00 K/mm3 0.0-0.1 MANUAL DIFF REQUIRED (test code=MDIFF) NO, ONLY SCAN NEEDED DIFFERENTIAL [id number] 10:42:00* Test Item Value Reference Range Comments STAIN ACCEPTABILITY (test code=STN ACCEPTABLE) CABOT RINGS (test code=CAB) MORPHOLOGY COMMENT (test code=MOC) PLATELET ESTIMATE (test code=PLTEST) PLATELET MORPHOLOGY (test code=PLTMORPH) CBC W/AUTO [id number] 10:42:00* Test Item Value Reference Range Comments WHITE BLOOD CELL (test code=WBC) 6.9 K/mm3 4.5-12.5 RED BLOOD CELL (test code=RBC) 3.17 mill/mm3 4.0-5.8 HEMOGLOBIN (test code=HGB) 7.3 gram/dL 13.0-17.5 HEMATOCRIT (test code=HCT) 26.0 % 42.0-52.0 MEAN CELL VOLUME (test code=MCV) 82.0 fL 80-98 MEAN CELL HGB (test code=MCH) 23.0 picogram 27.0-33.0 MEAN CELL HGB CONCETRATION (test code=MCHC) 28.1 gram/dL 33.0-36.0 RED CELL DISTRIBUTION WIDTH (test code=RDW) 18.1 % 11.6-16.2 RED CELL DISTRIBUTION WIDTH SD (test code=RDW-SD) 53.4 fL 37.0-51.0 PLATELET COUNT (test code=PLT) 306 K/mm3 150-450 MEAN PLATELET VOLUME (test code=MPV) 9.5 fL 6.7-11.0 NEUTROPHIL % (test code=NT%) 61.5 % 39.0-69.0 IMMATURE GRANULOCYTE % (test code=IG%) 0.9 % 0.0-5.0 LYMPHOCYTE % (test code=LY%) 24.4 % 25.0-55.0 MONOCYTE % (test code=MO%) 8.9 % 0.0-10.0 EOSINOPHIL % (test code=EO%) 3.7 % 0.0-5.0 BASOPHIL % (test code=BA%) 0.6 % 0.0-1.0 NUCLEATED RBC % (test code=NRBC%) 0.0 % 0-0 NEUTROPHIL # (test code=NT#) 4.27 K/mm3 1.8-7.7 IMMATURE GRANULOCYTE # (test code=IG#) 0.06 x10 3/uL 0-0.03 LYMPHOCYTE # (test code=LY#) 1.69 K/mm3 1.0-5.0 MONOCYTE # (test code=MO#) 0.62 K/mm3 0-0.8 EOSINOPHIL # (test code=EO#) 0.26 K/mm3 0.0-0.5 BASOPHIL # (test code=BA#) 0.04 K/mm3 0.0-0.2 NUCLEATED RBC # (test code=NRBC#) 0.00 K/mm3 0.0-0.1 MANUAL DIFF REQUIRED (test code=MDIFF) NO, ONLY SCAN NEEDED DIFFERENTIAL [id number] 10:42:00* Test Item Value Reference Range Comments STAIN ACCEPTABILITY (test code=STN ACCEPTABLE) CABOT RINGS (test code=CAB) MORPHOLOGY COMMENT (test code=MOC) PLATELET ESTIMATE (test code=PLTEST) PLATELET MORPHOLOGY (test code=PLTMORPH) [id number] 05:30:00* Test Item Value Reference Range Comments GLUBED (test code=GLUBED) 146 mg/dL 74-106 Performed by certified hyster machine operator at [facility] [id number] 21:33:00* Test Item Value Reference Range Comments GLUBED (test code=GLUBED) 262 mg/dL 74-106 Performed by certified hyster machine operator at [facility] [id number] 17:58:00* Test Item Value Reference Range Comments GLUBED (test code=GLUBED) 226 mg/dL 74-106 Performed by certified hyster machine operator at [facility] [id number] 12:16:00* Test Item Value Reference Range Comments GLUBED (test code=GLUBED) 204 mg/dL 74-106 Performed by certified hyster machine operator at [facility] PROTHROMBIN [id number] 12:09:00* Test Item Value Reference Range Comments PROTHROMBIN TIME PATIENT (test code=PTP) 13.9 seconds 9.0-14.0 INTERNATIONAL NORMAL RATIO (test code=INR) 1.2 0.8-1.2 The therapeutic range for oral anticoagulant therapy formost indications is an international normalized ratio (INR)of between 2.0 and 3.0. 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 YLIST ANTICOAGULANTS COUMADINCBC W/AUTO DIFF 2018-04-25 12:05:00* Test Item Value Reference Range Comments WHITE BLOOD CELL (test code=WBC) 8.2 K/mm3 4.5-12.5 RED BLOOD CELL (test code=RBC) 3.29 mill/mm3 4.0-5.8 HEMOGLOBIN (test code=HGB) 7.7 gram/dL 13.0-17.5 HEMATOCRIT (test code=HCT) 26.9 % 42.0-52.0 MEAN CELL VOLUME (test code=MCV) 81.8 fL 80-98 MEAN CELL HGB (test code=MCH) 23.4 picogram 27.0-33.0 MEAN CELL HGB CONCETRATION (test code=MCHC) 28.6 gram/dL 33.0-36.0 RED CELL DISTRIBUTION WIDTH (test code=RDW) 17.9 % 11.6-16.2 RED CELL DISTRIBUTION WIDTH SD (test code=RDW-SD) 52.6 fL 37.0-51.0 PLATELET COUNT (test code=PLT) 288 K/mm3 150-450 MEAN PLATELET VOLUME (test code=MPV) 9.3 fL 6.7-11.0 NEUTROPHIL % (test code=NT%) 77.5 % 39.0-69.0 IMMATURE GRANULOCYTE % (test code=IG%) 1.2 % 0.0-5.0 LYMPHOCYTE % (test code=LY%) 13.6 % 25.0-55.0 MONOCYTE % (test code=MO%) 7.2 % 0.0-10.0 EOSINOPHIL % (test code=EO%) 0.1 % 0.0-5.0 BASOPHIL % (test code=BA%) 0.4 % 0.0-1.0 NUCLEATED RBC % (test code=NRBC%) 0.0 % 0-0 NEUTROPHIL # (test code=NT#) 6.34 K/mm3 1.8-7.7 IMMATURE GRANULOCYTE # (test code=IG#) 0.10 x10 3/uL 0-0.03 LYMPHOCYTE # (test code=LY#) 1.11 K/mm3 1.0-5.0 MONOCYTE # (test code=MO#) 0.59 K/mm3 0-0.8 EOSINOPHIL # (test code=EO#) 0.01 K/mm3 0.0-0.5 BASOPHIL # (test code=BA#) 0.03 K/mm3 0.0-0.2 NUCLEATED RBC # (test code=NRBC#) 0.00 K/mm3 0.0-0.1 MANUAL DIFF REQUIRED (test code=MDIFF) NO [id number] 06:42:00* Test Item Value Reference Range Comments GLUBED (test code=GLUBED) 217 mg/dL 74-106 [facility] [id number] 21:47:00* Test Item Value Reference Range Comments GLUBED (test code=GLUBED) 206 mg/dL 74-106 [facility] hyster [facility] [id number] 16:38:00* Test Item Value Reference Range Comments GLUBED (test code=GLUBED) 211 mg/dL 74-106 Performed by certified hyster machine operator at [facility] CBC W/AUTO [id number] 15:55:00* Test Item Value Reference Range Comments WHITE BLOOD CELL (test code=WBC) 7.4 K/mm3 4.5-12.5 RED BLOOD CELL (test code=RBC) 3.13 mill/mm3 4.0-5.8 HEMOGLOBIN (test code=HGB) 7.4 gram/dL 13.0-17.5 HEMATOCRIT (test code=HCT) 25.5 % 42.0-52.0 MEAN CELL VOLUME (test code=MCV) 81.5 fL 80-98 MEAN CELL HGB (test code=MCH) 23.6 picogram 27.0-33.0 MEAN CELL HGB CONCETRATION (test code=MCHC) 29.0 gram/dL 33.0-36.0 RED CELL DISTRIBUTION WIDTH (test code=RDW) 17.7 % 11.6-16.2 RED CELL DISTRIBUTION WIDTH SD (test code=RDW-SD) 52.8 fL 37.0-51.0 PLATELET COUNT (test code=PLT) 276 K/mm3 150-450 MEAN PLATELET VOLUME (test code=MPV) 9.8 fL 6.7-11.0 NEUTROPHIL % (test code=NT%) 65.3 % 39.0-69.0 IMMATURE GRANULOCYTE % (test code=IG%) 0.7 % 0.0-5.0 LYMPHOCYTE % (test code=LY%) 21.4 % 25.0-55.0 MONOCYTE % (test code=MO%) 9.5 % 0.0-10.0 EOSINOPHIL % (test code=EO%) 2.7 % 0.0-5.0 BASOPHIL % (test code=BA%) 0.4 % 0.0-1.0 NUCLEATED RBC % (test code=NRBC%) 0.0 % 0-0 NEUTROPHIL # (test code=NT#) 4.83 K/mm3 1.8-7.7 IMMATURE GRANULOCYTE # (test code=IG#) 0.05 x10 3/uL 0-0.03 LYMPHOCYTE # (test code=LY#) 1.58 K/mm3 1.0-5.0 MONOCYTE # (test code=MO#) 0.70 K/mm3 0-0.8 EOSINOPHIL # (test code=EO#) 0.20 K/mm3 0.0-0.5 BASOPHIL # (test code=BA#) 0.03 K/mm3 0.0-0.2 NUCLEATED RBC # (test code=NRBC#) 0.00 K/mm3 0.0-0.1 MANUAL DIFF REQUIRED (test code=MDIFF) NO, ONLY SCAN NEEDED DIFFERENTIAL [id number] 15:55:00* Test Item Value Reference Range Comments STAIN ACCEPTABILITY (test code=STN ACCEPTABLE) STAIN ACCEPTABLE POLYCHROMASIA (test code=POLC) 2+ HYPOCHROMIA (test code=HYPO) 1+ POIKILOCYTOSIS (test code=POIK) 1+ ANISOCYTOSIS (test code=ANISO) 1+ MICROCYTOSIS (test code=MICR) 1+ PLATELET ESTIMATE (test code=PLTEST) ADEQUATE PLATELET MORPHOLOGY (test code=PLTMORPH) NORMAL CBC W/AUTO [id number] 15:19:00* Test Item Value Reference Range Comments WHITE BLOOD CELL (test code=WBC) 7.4 K/mm3 4.5-12.5 RED BLOOD CELL (test code=RBC) 3.13 mill/mm3 4.0-5.8 HEMOGLOBIN (test code=HGB) 7.4 gram/dL 13.0-17.5 HEMATOCRIT (test code=HCT) 25.5 % 42.0-52.0 MEAN CELL VOLUME (test code=MCV) 81.5 fL 80-98 MEAN CELL HGB (test code=MCH) 23.6 picogram 27.0-33.0 MEAN CELL HGB CONCETRATION (test code=MCHC) 29.0 gram/dL 33.0-36.0 RED CELL DISTRIBUTION WIDTH (test code=RDW) 17.7 % 11.6-16.2 RED CELL DISTRIBUTION WIDTH SD (test code=RDW-SD) 52.8 fL 37.0-51.0 PLATELET COUNT (test code=PLT) 276 K/mm3 150-450 MEAN PLATELET VOLUME (test code=MPV) 9.8 fL 6.7-11.0 NEUTROPHIL % (test code=NT%) 65.3 % 39.0-69.0 IMMATURE GRANULOCYTE % (test code=IG%) 0.7 % 0.0-5.0 LYMPHOCYTE % (test code=LY%) 21.4 % 25.0-55.0 MONOCYTE % (test code=MO%) 9.5 % 0.0-10.0 EOSINOPHIL % (test code=EO%) 2.7 % 0.0-5.0 BASOPHIL % (test code=BA%) 0.4 % 0.0-1.0 NUCLEATED RBC % (test code=NRBC%) 0.0 % 0-0 NEUTROPHIL # (test code=NT#) 4.83 K/mm3 1.8-7.7 IMMATURE GRANULOCYTE # (test code=IG#) 0.05 x10 3/uL 0-0.03 LYMPHOCYTE # (test code=LY#) 1.58 K/mm3 1.0-5.0 MONOCYTE # (test code=MO#) 0.70 K/mm3 0-0.8 EOSINOPHIL # (test code=EO#) 0.20 K/mm3 0.0-0.5 BASOPHIL # (test code=BA#) 0.03 K/mm3 0.0-0.2 NUCLEATED RBC # (test code=NRBC#) 0.00 K/mm3 0.0-0.1 MANUAL DIFF REQUIRED (test code=MDIFF) NO, ONLY SCAN NEEDED DIFFERENTIAL [id number] 15:19:00* Test Item Value Reference Range Comments STAIN ACCEPTABILITY (test code=STN ACCEPTABLE) CABOT RINGS (test code=CAB) MORPHOLOGY COMMENT (test code=MOC) PLATELET ESTIMATE (test code=PLTEST) PLATELET MORPHOLOGY (test code=PLTMORPH) CBC W/AUTO [id number] 15:19:00* Test Item Value Reference Range Comments WHITE BLOOD CELL (test code=WBC) 7.4 K/mm3 4.5-12.5 RED BLOOD CELL (test code=RBC) 3.13 mill/mm3 4.0-5.8 HEMOGLOBIN (test code=HGB) 7.4 gram/dL 13.0-17.5 HEMATOCRIT (test code=HCT) 25.5 % 42.0-52.0 MEAN CELL VOLUME (test code=MCV) 81.5 fL 80-98 MEAN CELL HGB (test code=MCH) 23.6 picogram 27.0-33.0 MEAN CELL HGB CONCETRATION (test code=MCHC) 29.0 gram/dL 33.0-36.0 RED CELL DISTRIBUTION WIDTH (test code=RDW) 17.7 % 11.6-16.2 RED CELL DISTRIBUTION WIDTH SD (test code=RDW-SD) 52.8 fL 37.0-51.0 PLATELET COUNT (test code=PLT) 276 K/mm3 150-450 MEAN PLATELET VOLUME (test code=MPV) 9.8 fL 6.7-11.0 NEUTROPHIL % (test code=NT%) 65.3 % 39.0-69.0 IMMATURE GRANULOCYTE % (test code=IG%) 0.7 % 0.0-5.0 LYMPHOCYTE % (test code=LY%) 21.4 % 25.0-55.0 MONOCYTE % (test code=MO%) 9.5 % 0.0-10.0 EOSINOPHIL % (test code=EO%) 2.7 % 0.0-5.0 BASOPHIL % (test code=BA%) 0.4 % 0.0-1.0 NUCLEATED RBC % (test code=NRBC%) 0.0 % 0-0 NEUTROPHIL # (test code=NT#) 4.83 K/mm3 1.8-7.7 IMMATURE GRANULOCYTE # (test code=IG#) 0.05 x10 3/uL 0-0.03 LYMPHOCYTE # (test code=LY#) 1.58 K/mm3 1.0-5.0 MONOCYTE # (test code=MO#) 0.70 K/mm3 0-0.8 EOSINOPHIL # (test code=EO#) 0.20 K/mm3 0.0-0.5 BASOPHIL # (test code=BA#) 0.03 K/mm3 0.0-0.2 NUCLEATED RBC # (test code=NRBC#) 0.00 K/mm3 0.0-0.1 MANUAL DIFF REQUIRED (test code=MDIFF) NO, ONLY SCAN NEEDED DIFFERENTIAL [id number] 15:19:00* Test Item Value Reference Range Comments STAIN ACCEPTABILITY (test code=STN ACCEPTABLE) CABOT RINGS (test code=CAB) MORPHOLOGY COMMENT (test code=MOC) PLATELET ESTIMATE (test code=PLTEST) PLATELET MORPHOLOGY (test code=PLTMORPH) CBC W/AUTO [id number] 15:19:00* Test Item Value Reference Range Comments WHITE BLOOD CELL (test code=WBC) 7.4 K/mm3 4.5-12.5 RED BLOOD CELL (test code=RBC) 3.13 mill/mm3 4.0-5.8 HEMOGLOBIN (test code=HGB) 7.4 gram/dL 13.0-17.5 HEMATOCRIT (test code=HCT) 25.5 % 42.0-52.0 MEAN CELL VOLUME (test code=MCV) 81.5 fL 80-98 MEAN CELL HGB (test code=MCH) 23.6 picogram 27.0-33.0 MEAN CELL HGB CONCETRATION (test code=MCHC) 29.0 gram/dL 33.0-36.0 RED CELL DISTRIBUTION WIDTH (test code=RDW) 17.7 % 11.6-16.2 RED CELL DISTRIBUTION WIDTH SD (test code=RDW-SD) 52.8 fL 37.0-51.0 PLATELET COUNT (test code=PLT) 276 K/mm3 150-450 MEAN PLATELET VOLUME (test code=MPV) 9.8 fL 6.7-11.0 NEUTROPHIL % (test code=NT%) 65.3 % 39.0-69.0 IMMATURE GRANULOCYTE % (test code=IG%) 0.7 % 0.0-5.0 LYMPHOCYTE % (test code=LY%) 21.4 % 25.0-55.0 MONOCYTE % (test code=MO%) 9.5 % 0.0-10.0 EOSINOPHIL % (test code=EO%) 2.7 % 0.0-5.0 BASOPHIL % (test code=BA%) 0.4 % 0.0-1.0 NUCLEATED RBC % (test code=NRBC%) 0.0 % 0-0 NEUTROPHIL # (test code=NT#) 4.83 K/mm3 1.8-7.7 IMMATURE GRANULOCYTE # (test code=IG#) 0.05 x10 3/uL 0-0.03 LYMPHOCYTE # (test code=LY#) 1.58 K/mm3 1.0-5.0 MONOCYTE # (test code=MO#) 0.70 K/mm3 0-0.8 EOSINOPHIL # (test code=EO#) 0.20 K/mm3 0.0-0.5 BASOPHIL # (test code=BA#) 0.03 K/mm3 0.0-0.2 NUCLEATED RBC # (test code=NRBC#) 0.00 K/mm3 0.0-0.1 MANUAL DIFF REQUIRED (test code=MDIFF) NO, ONLY SCAN NEEDED DIFFERENTIAL [id number] 15:19:00* Test Item Value Reference Range Comments STAIN ACCEPTABILITY (test code=STN ACCEPTABLE) MORPHOLOGY COMMENT (test code=MOC) PLATELET ESTIMATE (test code=PLTEST) PLATELET MORPHOLOGY (test code=PLTMORPH) CBC W/AUTO [id number] 15:19:00* Test Item Value Reference Range Comments WHITE BLOOD CELL (test code=WBC) 7.4 K/mm3 4.5-12.5 RED BLOOD CELL (test code=RBC) 3.13 mill/mm3 4.0-5.8 HEMOGLOBIN (test code=HGB) 7.4 gram/dL 13.0-17.5 HEMATOCRIT (test code=HCT) 25.5 % 42.0-52.0 MEAN CELL VOLUME (test code=MCV) 81.5 fL 80-98 MEAN CELL HGB (test code=MCH) 23.6 picogram 27.0-33.0 MEAN CELL HGB CONCETRATION (test code=MCHC) 29.0 gram/dL 33.0-36.0 RED CELL DISTRIBUTION WIDTH (test code=RDW) 17.7 % 11.6-16.2 RED CELL DISTRIBUTION WIDTH SD (test code=RDW-SD) 52.8 fL 37.0-51.0 PLATELET COUNT (test code=PLT) 276 K/mm3 150-450 MEAN PLATELET VOLUME (test code=MPV) 9.8 fL 6.7-11.0 NEUTROPHIL % (test code=NT%) 65.3 % 39.0-69.0 IMMATURE GRANULOCYTE % (test code=IG%) 0.7 % 0.0-5.0 LYMPHOCYTE % (test code=LY%) 21.4 % 25.0-55.0 MONOCYTE % (test code=MO%) 9.5 % 0.0-10.0 EOSINOPHIL % (test code=EO%) 2.7 % 0.0-5.0 BASOPHIL % (test code=BA%) 0.4 % 0.0-1.0 NUCLEATED RBC % (test code=NRBC%) 0.0 % 0-0 NEUTROPHIL # (test code=NT#) 4.83 K/mm3 1.8-7.7 IMMATURE GRANULOCYTE # (test code=IG#) 0.05 x10 3/uL 0-0.03 LYMPHOCYTE # (test code=LY#) 1.58 K/mm3 1.0-5.0 MONOCYTE # (test code=MO#) 0.70 K/mm3 0-0.8 EOSINOPHIL # (test code=EO#) 0.20 K/mm3 0.0-0.5 BASOPHIL # (test code=BA#) 0.03 K/mm3 0.0-0.2 NUCLEATED RBC # (test code=NRBC#) 0.00 K/mm3 0.0-0.1 MANUAL DIFF REQUIRED (test code=MDIFF) NO, ONLY SCAN NEEDED DIFFERENTIAL [id number] 15:19:00* Test Item Value Reference Range Comments STAIN ACCEPTABILITY (test code=STN ACCEPTABLE) CABOT RINGS (test code=CAB) MORPHOLOGY COMMENT (test code=MOC) PLATELET ESTIMATE (test code=PLTEST) PLATELET MORPHOLOGY (test code=PLTMORPH) [id number] 11:43:00* Test Item Value Reference Range Comments GLUBED (test code=GLUBED) 225 mg/dL 74-106 Performed by certified hyster machine operator at [facility] PROTHROMBIN [id number] 11:09:00* Test Item Value Reference Range Comments PROTHROMBIN TIME PATIENT (test code=PTP) 14.4 seconds 9.0-14.0 INTERNATIONAL NORMAL RATIO (test code=INR) 1.2 0.8-1.2 The therapeutic range for oral anticoagulant therapy formost indications is an international normalized ratio (INR)of between 2.0 and 3.0. 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 YLIST ANTICOAGULANTS COUMADINIMMUNOGLOBULINS A,G [id number] 08:24:00* Test Item Value Reference Range Comments IMMUNOGLOBULIN G (test code=IGG) 1242 mg/dL 700-1600 IMMUNOGLOBULIN M (test code=IGM) 120 mg/dL 15-143 Performed At: [facility] [id number] Kyle L MD Ph:[phone] IMMUNOGLOBULIN A (test code=IGA) 301 mg/dL 61-437 CBC W/AUTO [id number] 08:01:00* Test Item Value Reference Range Comments WHITE BLOOD CELL (test code=WBC) 8.0 K/mm3 4.5-12.5 RED BLOOD CELL (test code=RBC) 3.28 mill/mm3 4.0-5.8 HEMOGLOBIN (test code=HGB) 7.7 gram/dL 13.0-17.5 HEMATOCRIT (test code=HCT) 26.9 % 42.0-52.0 MEAN CELL VOLUME (test code=MCV) 82.0 fL 80-98 MEAN CELL HGB (test code=MCH) 23.5 picogram 27.0-33.0 MEAN CELL HGB CONCETRATION (test code=MCHC) 28.6 gram/dL 33.0-36.0 RED CELL DISTRIBUTION WIDTH (test code=RDW) 17.6 % 11.6-16.2 RED CELL DISTRIBUTION WIDTH SD (test code=RDW-SD) 52.2 fL 37.0-51.0 PLATELET COUNT (test code=PLT) 275 K/mm3 150-450 MEAN PLATELET VOLUME (test code=MPV) 10.0 fL 6.7-11.0 NEUTROPHIL % (test code=NT%) 67.1 % 39.0-69.0 IMMATURE GRANULOCYTE % (test code=IG%) 0.5 % 0.0-5.0 LYMPHOCYTE % (test code=LY%) 21.0 % 25.0-55.0 MONOCYTE % (test code=MO%) 8.5 % 0.0-10.0 EOSINOPHIL % (test code=EO%) 2.4 % 0.0-5.0 BASOPHIL % (test code=BA%) 0.5 % 0.0-1.0 NUCLEATED RBC % (test code=NRBC%) 0.0 % 0-0 NEUTROPHIL # (test code=NT#) 5.35 K/mm3 1.8-7.7 IMMATURE GRANULOCYTE # (test code=IG#) 0.04 x10 3/uL 0-0.03 LYMPHOCYTE # (test code=LY#) 1.67 K/mm3 1.0-5.0 MONOCYTE # (test code=MO#) 0.68 K/mm3 0-0.8 EOSINOPHIL # (test code=EO#) 0.19 K/mm3 0.0-0.5 BASOPHIL # (test code=BA#) 0.04 K/mm3 0.0-0.2 NUCLEATED RBC # (test code=NRBC#) 0.00 K/mm3 0.0-0.1 MANUAL DIFF REQUIRED (test code=MDIFF) NO, ONLY SCAN NEEDED DIFFERENTIAL [id number] 08:01:00* Test Item Value Reference Range Comments STAIN ACCEPTABILITY (test code=STN ACCEPTABLE) STAIN ACCEPTABLE POLYCHROMASIA (test code=POLC) 1+ ANISOCYTOSIS (test code=ANISO) 2+ MICROCYTOSIS (test code=MICR) 2+ TEAR DROP CELLS (test code=TEAR) 1+ ELLIPTOCYTES (test code=ELL) 1+ PLATELET ESTIMATE (test code=PLTEST) ADEQUATE PLATELET MORPHOLOGY (test code=PLTMORPH) APPEAR LARGE CBC W/AUTO [id number] 06:51:00* Test Item Value Reference Range Comments WHITE BLOOD CELL (test code=WBC) 8.0 K/mm3 4.5-12.5 RED BLOOD CELL (test code=RBC) 3.28 mill/mm3 4.0-5.8 HEMOGLOBIN (test code=HGB) 7.7 gram/dL 13.0-17.5 HEMATOCRIT (test code=HCT) 26.9 % 42.0-52.0 MEAN CELL VOLUME (test code=MCV) 82.0 fL 80-98 MEAN CELL HGB (test code=MCH) 23.5 picogram 27.0-33.0 MEAN CELL HGB CONCETRATION (test code=MCHC) 28.6 gram/dL 33.0-36.0 RED CELL DISTRIBUTION WIDTH (test code=RDW) 17.6 % 11.6-16.2 RED CELL DISTRIBUTION WIDTH SD (test code=RDW-SD) 52.2 fL 37.0-51.0 PLATELET COUNT (test code=PLT) 275 K/mm3 150-450 MEAN PLATELET VOLUME (test code=MPV) 10.0 fL 6.7-11.0 NEUTROPHIL % (test code=NT%) 67.1 % 39.0-69.0 IMMATURE GRANULOCYTE % (test code=IG%) 0.5 % 0.0-5.0 LYMPHOCYTE % (test code=LY%) 21.0 % 25.0-55.0 MONOCYTE % (test code=MO%) 8.5 % 0.0-10.0 EOSINOPHIL % (test code=EO%) 2.4 % 0.0-5.0 BASOPHIL % (test code=BA%) 0.5 % 0.0-1.0 NUCLEATED RBC % (test code=NRBC%) 0.0 % 0-0 NEUTROPHIL # (test code=NT#) 5.35 K/mm3 1.8-7.7 IMMATURE GRANULOCYTE # (test code=IG#) 0.04 x10 3/uL 0-0.03 LYMPHOCYTE # (test code=LY#) 1.67 K/mm3 1.0-5.0 MONOCYTE # (test code=MO#) 0.68 K/mm3 0-0.8 EOSINOPHIL # (test code=EO#) 0.19 K/mm3 0.0-0.5 BASOPHIL # (test code=BA#) 0.04 K/mm3 0.0-0.2 NUCLEATED RBC # (test code=NRBC#) 0.00 K/mm3 0.0-0.1 MANUAL DIFF REQUIRED (test code=MDIFF) NO, ONLY SCAN NEEDED DIFFERENTIAL [id number] 06:51:00* Test Item Value Reference Range Comments STAIN ACCEPTABILITY (test code=STN ACCEPTABLE) CABOT RINGS (test code=CAB) MORPHOLOGY COMMENT (test code=MOC) PLATELET ESTIMATE (test code=PLTEST) PLATELET MORPHOLOGY (test code=PLTMORPH) CBC W/AUTO [id number] 06:51:00* Test Item Value Reference Range Comments WHITE BLOOD CELL (test code=WBC) 8.0 K/mm3 4.5-12.5 RED BLOOD CELL (test code=RBC) 3.28 mill/mm3 4.0-5.8 HEMOGLOBIN (test code=HGB) 7.7 gram/dL 13.0-17.5 HEMATOCRIT (test code=HCT) 26.9 % 42.0-52.0 MEAN CELL VOLUME (test code=MCV) 82.0 fL 80-98 MEAN CELL HGB (test code=MCH) 23.5 picogram 27.0-33.0 MEAN CELL HGB CONCETRATION (test code=MCHC) 28.6 gram/dL 33.0-36.0 RED CELL DISTRIBUTION WIDTH (test code=RDW) 17.6 % 11.6-16.2 RED CELL DISTRIBUTION WIDTH SD (test code=RDW-SD) 52.2 fL 37.0-51.0 PLATELET COUNT (test code=PLT) 275 K/mm3 150-450 MEAN PLATELET VOLUME (test code=MPV) 10.0 fL 6.7-11.0 NEUTROPHIL % (test code=NT%) 67.1 % 39.0-69.0 IMMATURE GRANULOCYTE % (test code=IG%) 0.5 % 0.0-5.0 LYMPHOCYTE % (test code=LY%) 21.0 % 25.0-55.0 MONOCYTE % (test code=MO%) 8.5 % 0.0-10.0 EOSINOPHIL % (test code=EO%) 2.4 % 0.0-5.0 BASOPHIL % (test code=BA%) 0.5 % 0.0-1.0 NUCLEATED RBC % (test code=NRBC%) 0.0 % 0-0 NEUTROPHIL # (test code=NT#) 5.35 K/mm3 1.8-7.7 IMMATURE GRANULOCYTE # (test code=IG#) 0.04 x10 3/uL 0-0.03 LYMPHOCYTE # (test code=LY#) 1.67 K/mm3 1.0-5.0 MONOCYTE # (test code=MO#) 0.68 K/mm3 0-0.8 EOSINOPHIL # (test code=EO#) 0.19 K/mm3 0.0-0.5 BASOPHIL # (test code=BA#) 0.04 K/mm3 0.0-0.2 NUCLEATED RBC # (test code=NRBC#) 0.00 K/mm3 0.0-0.1 MANUAL DIFF REQUIRED (test code=MDIFF) NO, ONLY SCAN NEEDED DIFFERENTIAL [id number] 06:51:00* Test Item Value Reference Range Comments STAIN ACCEPTABILITY (test code=STN ACCEPTABLE) MORPHOLOGY COMMENT (test code=MOC) PLATELET ESTIMATE (test code=PLTEST) PLATELET MORPHOLOGY (test code=PLTMORPH) CBC W/AUTO [id number] 06:51:00* Test Item Value Reference Range Comments WHITE BLOOD CELL (test code=WBC) 8.0 K/mm3 4.5-12.5 RED BLOOD CELL (test code=RBC) 3.28 mill/mm3 4.0-5.8 HEMOGLOBIN (test code=HGB) 7.7 gram/dL 13.0-17.5 HEMATOCRIT (test code=HCT) 26.9 % 42.0-52.0 MEAN CELL VOLUME (test code=MCV) 82.0 fL 80-98 MEAN CELL HGB (test code=MCH) 23.5 picogram 27.0-33.0 MEAN CELL HGB CONCETRATION (test code=MCHC) 28.6 gram/dL 33.0-36.0 RED CELL DISTRIBUTION WIDTH (test code=RDW) 17.6 % 11.6-16.2 RED CELL DISTRIBUTION WIDTH SD (test code=RDW-SD) 52.2 fL 37.0-51.0 PLATELET COUNT (test code=PLT) 275 K/mm3 150-450 MEAN PLATELET VOLUME (test code=MPV) 10.0 fL 6.7-11.0 NEUTROPHIL % (test code=NT%) 67.1 % 39.0-69.0 IMMATURE GRANULOCYTE % (test code=IG%) 0.5 % 0.0-5.0 LYMPHOCYTE % (test code=LY%) 21.0 % 25.0-55.0 MONOCYTE % (test code=MO%) 8.5 % 0.0-10.0 EOSINOPHIL % (test code=EO%) 2.4 % 0.0-5.0 BASOPHIL % (test code=BA%) 0.5 % 0.0-1.0 NUCLEATED RBC % (test code=NRBC%) 0.0 % 0-0 NEUTROPHIL # (test code=NT#) 5.35 K/mm3 1.8-7.7 IMMATURE GRANULOCYTE # (test code=IG#) 0.04 x10 3/uL 0-0.03 LYMPHOCYTE # (test code=LY#) 1.67 K/mm3 1.0-5.0 MONOCYTE # (test code=MO#) 0.68 K/mm3 0-0.8 EOSINOPHIL # (test code=EO#) 0.19 K/mm3 0.0-0.5 BASOPHIL # (test code=BA#) 0.04 K/mm3 0.0-0.2 NUCLEATED RBC # (test code=NRBC#) 0.00 K/mm3 0.0-0.1 MANUAL DIFF REQUIRED (test code=MDIFF) NO, ONLY SCAN NEEDED DIFFERENTIAL [id number] 06:51:00* Test Item Value Reference Range Comments STAIN ACCEPTABILITY (test code=STN ACCEPTABLE) MORPHOLOGY COMMENT (test code=MOC) PLATELET ESTIMATE (test code=PLTEST) PLATELET MORPHOLOGY (test code=PLTMORPH) CBC W/AUTO [id number] 06:51:00* Test Item Value Reference Range Comments WHITE BLOOD CELL (test code=WBC) 8.0 K/mm3 4.5-12.5 RED BLOOD CELL (test code=RBC) 3.28 mill/mm3 4.0-5.8 HEMOGLOBIN (test code=HGB) 7.7 gram/dL 13.0-17.5 HEMATOCRIT (test code=HCT) 26.9 % 42.0-52.0 MEAN CELL VOLUME (test code=MCV) 82.0 fL 80-98 MEAN CELL HGB (test code=MCH) 23.5 picogram 27.0-33.0 MEAN CELL HGB CONCETRATION (test code=MCHC) 28.6 gram/dL 33.0-36.0 RED CELL DISTRIBUTION WIDTH (test code=RDW) 17.6 % 11.6-16.2 RED CELL DISTRIBUTION WIDTH SD (test code=RDW-SD) 52.2 fL 37.0-51.0 PLATELET COUNT (test code=PLT) 275 K/mm3 150-450 MEAN PLATELET VOLUME (test code=MPV) 10.0 fL 6.7-11.0 NEUTROPHIL % (test code=NT%) 67.1 % 39.0-69.0 IMMATURE GRANULOCYTE % (test code=IG%) 0.5 % 0.0-5.0 LYMPHOCYTE % (test code=LY%) 21.0 % 25.0-55.0 MONOCYTE % (test code=MO%) 8.5 % 0.0-10.0 EOSINOPHIL % (test code=EO%) 2.4 % 0.0-5.0 BASOPHIL % (test code=BA%) 0.5 % 0.0-1.0 NUCLEATED RBC % (test code=NRBC%) 0.0 % 0-0 NEUTROPHIL # (test code=NT#) 5.35 K/mm3 1.8-7.7 IMMATURE GRANULOCYTE # (test code=IG#) 0.04 x10 3/uL 0-0.03 LYMPHOCYTE # (test code=LY#) 1.67 K/mm3 1.0-5.0 MONOCYTE # (test code=MO#) 0.68 K/mm3 0-0.8 EOSINOPHIL # (test code=EO#) 0.19 K/mm3 0.0-0.5 BASOPHIL # (test code=BA#) 0.04 K/mm3 0.0-0.2 NUCLEATED RBC # (test code=NRBC#) 0.00 K/mm3 0.0-0.1 MANUAL DIFF REQUIRED (test code=MDIFF) NO, ONLY SCAN NEEDED DIFFERENTIAL [id number] 06:51:00* Test Item Value Reference Range Comments STAIN ACCEPTABILITY (test code=STN ACCEPTABLE) CABOT RINGS (test code=CAB) MORPHOLOGY COMMENT (test code=MOC) PLATELET ESTIMATE (test code=PLTEST) PLATELET MORPHOLOGY (test code=PLTMORPH) BASIC METABOLIC [id number] 06:20:00* Test Item Value Reference Range Comments SODIUM (test code=NA) 144 mmol/L 136-145 POTASSIUM (test code=K) 3.8 mmol/L 3.5-5.1 CHLORIDE (test code=CL) 112.0 mmol/L 98-107 CARBON DIOXIDE (test code=CO2) 21.0 mmol/L 21-32 ANION GAP (test code=GAP) 14.8 10-20 GLUCOSE (test code=GLU) 180 mg/dL 74-106 BLOOD UREA NITROGEN (test code=BUN) 17 mg/dL 7-18 GLOMERULAR FILTRATION RATE (test code=GFR) 54 mL/min >=60 Estimated GFR by using Modified MDRD formula.Chronic kidney disease is defined as either kidney damageor GFR <60 mL/min/1.73 m2 for >3 months. CREATININE (test code=CREAT) 1.30 mg/dL 0.7-1.3 BUN/CREATININE RATIO (test code=BUN/CREA) 12.8 10-20 CALCIUM (test code=CA) 8.6 mg/dL 8.5-10.1 [id number] 05:34:00* Test Item Value Reference Range Comments GLUBED (test code=GLUBED) 155 mg/dL 74-106 Performed by certified hyster machine operator at [facility] [id number] 21:35:00* Test Item Value Reference Range Comments GLUBED (test code=GLUBED) 171 mg/dL 74-106 Performed by certified hyster machine operator at [facility] [id number] 17:02:00* Test Item Value Reference Range Comments GLUBED (test code=GLUBED) 181 mg/dL 74-106 Performed by certified hyster machine operator at [facility] - CT ABD PELVIS W/O [id number] 16:30:00 Name: KATHLEENVICKI FALLON [facility] : 1940 Age/S: 77 / M [address] Unit #: [id number] Loc: [place] [address] Phys: Kory Moseley MD Acct: [id number] Dis Date: Status: ADM IN PHONE #: [phone] Exam Date: 04/23/2018 1626 FAX #: [phone] Reason: anemia EXAMS: CPT CODE: [id number] CT ABD PELVIS W/O CONT [id number] REASON FOR EXAM: anemia EXAM ORDER DATE: 04/23/2018 11:10 AM Ordering Gail: Kory Moseley MD PROCEDURE: - CT ABD PELVIS W/O CONT COMPARISON: FINDINGS: CT images of the abdomen and pelvis were obtained without IV and without oral contrast at 5mm. Dose modulation, iterative reconstruction, and/or weight based adjustment of the MA/KV was utilized to reduce the radiation dose to as low as reasonably achievable. The liver, spleen, and pancreas are grossly within normal limits. The patient is status post cholecystectomy The kidneys are within normal limits. The urinary bladder is unremarkable. The colon, small bowel, and stomach are within normal limits without evidence of obstruction. The appendix is unremarkable No evidence of free air or free fluid. IMPRESSION: Patchy nodular consolidations of the right middle lobe, right lower lobe and left base. Unremarkable abdomen at 1630 Reported and signed by: Pablo Clemens M.D. CC: Kory Moseley MD; Linda Tavarezh Technologist:Bambi Suh RT(R) CTDI: DLP: Trnscb Date/Time: 04/23/2018 (1630) t.VTL Orig Print D/T: S: 04/23/2018 (0373) CTDI: DLP: PAGE 1 Signed Report PROTHROMBIN [id number] 13:35:00* Test Item Value Reference Range Comments PROTHROMBIN TIME PATIENT (test code=PTP) 14.3 seconds 9.0-14.0 INTERNATIONAL NORMAL RATIO (test code=INR) 1.2 0.8-1.2 The therapeutic range for oral anticoagulant therapy formost indications is an international normalized ratio (INR)of between 2.0 and 3.0. 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 YLIST ANTICOAGULANTS COUMADINBASIC METABOLIC [id number] 13:28:00* Test Item Value Reference Range Comments SODIUM (test code=NA) 142 mmol/L 136-145 POTASSIUM (test code=K) 4.3 mmol/L 3.5-5.1 CHLORIDE (test code=CL) 112.0 mmol/L 98-107 CARBON DIOXIDE (test code=CO2) 24.0 mmol/L 21-32 ANION GAP (test code=GAP) 10.3 10-20 GLUCOSE (test code=GLU) 186 mg/dL 74-106 BLOOD UREA NITROGEN (test code=BUN) 16 mg/dL 7-18 GLOMERULAR FILTRATION RATE (test code=GFR) 49 mL/min >=60 Estimated GFR by using Modified MDRD formula.Chronic kidney disease is defined as either kidney damageor GFR <60 mL/min/1.73 m2 for >3 months. CREATININE (test code=CREAT) 1.40 mg/dL 0.7-1.3 BUN/CREATININE RATIO (test code=BUN/CREA) 11.8 10-20 CALCIUM (test code=CA) 7.7 mg/dL 8.5-10.1 CBC W/O [id number] 13:08:00* Test Item Value Reference Range Comments WHITE BLOOD CELL (test code=WBC) 7.2 K/mm3 4.5-12.5 RED BLOOD CELL (test code=RBC) 2.96 mill/mm3 4.0-5.8 HEMOGLOBIN (test code=HGB) 6.8 gram/dL 13.0-17.5 HEMATOCRIT (test code=HCT) 24.3 % 42.0-52.0 MEAN CELL VOLUME (test code=MCV) 82.1 fL 80-98 MEAN CELL HGB (test code=MCH) 23.0 picogram 27.0-33.0 MEAN CELL HGB CONCETRATION (test code=MCHC) 28.0 gram/dL 33.0-36.0 RED CELL DISTRIBUTION WIDTH (test code=RDW) 17.9 % 11.6-16.2 PLATELET COUNT (test code=PLT) 298 K/mm3 150-450 MEAN PLATELET VOLUME (test code=MPV) 10.1 fL 6.7-11.0 [id number] 12:49:00* Test Item Value Reference Range Comments GLUBED (test code=GLUBED) 218 mg/dL 74-106 Performed by certified hyster machine operator at [facility] [id number] 05:44:00* Test Item Value Reference Range Comments GLUBED (test code=GLUBED) 169 mg/dL 74-106 Performed by certified hyster machine operator at [facility] COMPREHENSIVE METABOLIC [id number] 23:19:00* Test Item Value Reference Range Comments SODIUM (test code=NA) 142 mmol/L 136-145 POTASSIUM (test code=K) 3.9 mmol/L 3.5-5.1 CHLORIDE (test code=CL) 112.0 mmol/L 98-107 CARBON DIOXIDE (test code=CO2) 22.0 mmol/L 21-32 ANION GAP (test code=GAP) 11.9 10-20 GLUCOSE (test code=GLU) 145 mg/dL 74-106 BLOOD UREA NITROGEN (test code=BUN) 20 mg/dL 7-18 GLOMERULAR FILTRATION RATE (test code=GFR) 54 mL/min >=60 Estimated GFR by using Modified MDRD formula.Chronic kidney disease is defined as either kidney damageor GFR <60 mL/min/1.73 m2 for >3 months. CREATININE (test code=CREAT) 1.30 mg/dL 0.7-1.3 BUN/CREATININE RATIO (test code=BUN/CREA) 14.9 10-20 TOTAL PROTEIN (test code=PROT) 7.4 gram/dL 6.4-8.2 ALBUMIN (test code=ALB) 2.7 g/dL 3.4-5.0 GLOBULIN (test code=GLOB) 4.7 gram/dL 2.7-4.2 ALBUMIN/GLOBULIN RATIO (test code=A/G) 0.6 0.75-1.50 CALCIUM (test code=CA) 8.1 mg/dL 8.5-10.1 BILIRUBIN TOTAL (test code=BILT) 0.20 mg/dL 0.0-1.0 SGOT/AST (test code=AST) 9 IUnit/L 15-37 SGPT/ALT (test code=ALT) 15 IUnit/L 12-78 ALKALINE PHOSPHATASE TOTAL (test code=ALKP) 96 IUnit/L 45-117 Note change in reference range due to change in reagent. COMPREHENSIVE METABOLIC [id number] 23:07:00* Test Item Value Reference Range Comments SODIUM (test code=NA) 142 mmol/L 136-145 POTASSIUM (test code=K) 3.9 mmol/L 3.5-5.1 CHLORIDE (test code=CL) 112.0 mmol/L 98-107 CARBON DIOXIDE (test code=CO2) mmol/L 21-32 ANION GAP (test code=GAP) 10-20 GLUCOSE (test code=GLU) mg/dL 74-106 BLOOD UREA NITROGEN (test code=BUN) mg/dL 7-18 GLOMERULAR FILTRATION RATE (test code=GFR) mL/min >=60 CREATININE (test code=CREAT) mg/dL 0.7-1.3 BUN/CREATININE RATIO (test code=BUN/CREA) 10-20 TOTAL PROTEIN (test code=PROT) gram/dL 6.4-8.2 ALBUMIN (test code=ALB) g/dL 3.4-5.0 GLOBULIN (test code=GLOB) gram/dL 2.7-4.2 ALBUMIN/GLOBULIN RATIO (test code=A/G) 0.75-1.50 CALCIUM (test code=CA) mg/dL 8.5-10.1 BILIRUBIN TOTAL (test code=BILT) mg/dL 0.0-1.0 SGOT/AST (test code=AST) IUnit/L 15-37 SGPT/ALT (test code=ALT) IUnit/L 12-78 ALKALINE PHOSPHATASE TOTAL (test code=ALKP) IUnit/L 45-117 [id number] 20:49:00* Test Item Value Reference Range Comments GLUBED (test code=GLUBED) 179 mg/dL 74-106 Performed by certified hyster machine operator at [facility] - CT CHEST W/[id number] 17:19:00 Name: VICKI LEVY [facility] : 1940 Age/S: 77 / M [address] Unit #: [id number] Loc: [place] [address] Phys: Ron Miles NP Acct: [id number] Dis Date: Status: ADM IN PHONE #: [phone] Exam Date: 04/22/2018 1650 FAX #: [phone] Reason: PE EXAMS: CPT CODE: [id number] CT CHEST W/CONTRAST [id number] REASON FOR EXAM: PE EXAM ORDER DATE: 04/22/2018 8:25 AM Ordering M.D.: Ron Miles NP PROCEDURE: - CT CHEST W/CONTRAST FINDINGS: CT images of the chest were obtained with IV contrast. Reconstructed sagittal and coronal images of the chest were provided for interpretation. Dose modulation, iterative reconstruction, and/or weight based adjustment of the MA/KV was utilized to reduce the radiation dose to as low as reasonably achievable. Intravenous contrast: 100c of Omnipaque 370. The heart size is within normal limits. No evidence of pericardial effusion The thoracic aorta is unremarkable. No evidence of dissection or aneurysmal dilatation. Multiple filling defects in the pulmonary arteries bilaterally involving both upper and lower lobes consistent with bilateral pulmonary emboli No evidence of mediastinal or hilar adenopathy. No evidence of pleural effusion IMPRESSION: Diffuse bilateral pulmonary emboli involving both upper and lower lobe pulmonary arteries. Patchy atelectasis or consolidation of the right upper and right lower lobe. Healthcare personnel taking care of the patient was informed of the findings by telephone at 5:19 PM FOR INTERNAL CODING PURPOSES ONLY RESULT C ODE: CVR at 7443 Reported and signed by: Pablo Clemens M.D. CC: Misty Miles PHARMACEUTICAL OPERATOR; Linda Tavarez Technologist:Bambi Suh RT(R) CTDI: DLP: Trnscb Date/Time: 04/22/2018 (5517) Jemima Orig Print D/T: S: 04/22/2018 (0905) CTDI: DLP: PAGE 1 Signed Report [id number] 17:12:00* Test Item Value Reference Range Comments GLUBED (test code=GLUBED) 134 mg/dL 74-106 Performed by certified hyster machine operator at [facility] [id number] 17:11:00* Test Item Value Reference Range Comments GLUBED (test code=GLUBED) 193 mg/dL 74-106 Performed by certified hyster machine operator at [facility] CBC W/AUTO [id number] 08:42:00* Test Item Value Reference Range Comments WHITE BLOOD CELL (test code=WBC) 9.2 K/mm3 4.5-12.5 RED BLOOD CELL (test code=RBC) 3.17 mill/mm3 4.0-5.8 HEMOGLOBIN (test code=HGB) 7.3 gram/dL 13.0-17.5 HEMATOCRIT (test code=HCT) 25.2 % 42.0-52.0 MEAN CELL VOLUME (test code=MCV) 79.5 fL 80-98 MEAN CELL HGB (test code=MCH) 23.0 picogram 27.0-33.0 MEAN CELL HGB CONCETRATION (test code=MCHC) 29.0 gram/dL 33.0-36.0 RED CELL DISTRIBUTION WIDTH (test code=RDW) 17.8 % 11.6-16.2 RED CELL DISTRIBUTION WIDTH SD (test code=RDW-SD) 51.5 fL 37.0-51.0 PLATELET COUNT (test code=PLT) 308 K/mm3 150-450 MEAN PLATELET VOLUME (test code=MPV) 10.1 fL 6.7-11.0 NEUTROPHIL % (test code=NT%) 70.4 % 39.0-69.0 IMMATURE GRANULOCYTE % (test code=IG%) 0.5 % 0.0-5.0 LYMPHOCYTE % (test code=LY%) 19.6 % 25.0-55.0 MONOCYTE % (test code=MO%) 7.6 % 0.0-10.0 EOSINOPHIL % (test code=EO%) 1.4 % 0.0-5.0 BASOPHIL % (test code=BA%) 0.5 % 0.0-1.0 NUCLEATED RBC % (test code=NRBC%) 0.2 % 0-0 NEUTROPHIL # (test code=NT#) 6.47 K/mm3 1.8-7.7 IMMATURE GRANULOCYTE # (test code=IG#) 0.05 x10 3/uL 0-0.03 LYMPHOCYTE # (test code=LY#) 1.80 K/mm3 1.0-5.0 MONOCYTE # (test code=MO#) 0.70 K/mm3 0-0.8 EOSINOPHIL # (test code=EO#) 0.13 K/mm3 0.0-0.5 BASOPHIL # (test code=BA#) 0.05 K/mm3 0.0-0.2 NUCLEATED RBC # (test code=NRBC#) 0.02 K/mm3 0.0-0.1 MANUAL DIFF REQUIRED (test code=MDIFF) NO, ONLY SCAN NEEDED DIFFERENTIAL [id number] 08:42:00* Test Item Value Reference Range Comments STAIN ACCEPTABILITY (test code=STN ACCEPTABLE) STAIN ACCEPTABLE POLYCHROMASIA (test code=POLC) 1+ ANISOCYTOSIS (test code=ANISO) 1+ MICROCYTOSIS (test code=MICR) 1+ PLATELET ESTIMATE (test code=PLTEST) ADEQUATE PLATELET MORPHOLOGY (test code=PLTMORPH) NORMAL CBC W/AUTO [id number] 08:24:00* Test Item Value Reference Range Comments WHITE BLOOD CELL (test code=WBC) 9.2 K/mm3 4.5-12.5 RED BLOOD CELL (test code=RBC) 3.17 mill/mm3 4.0-5.8 HEMOGLOBIN (test code=HGB) 7.3 gram/dL 13.0-17.5 HEMATOCRIT (test code=HCT) 25.2 % 42.0-52.0 MEAN CELL VOLUME (test code=MCV) 79.5 fL 80-98 MEAN CELL HGB (test code=MCH) 23.0 picogram 27.0-33.0 MEAN CELL HGB CONCETRATION (test code=MCHC) 29.0 gram/dL 33.0-36.0 RED CELL DISTRIBUTION WIDTH (test code=RDW) 17.8 % 11.6-16.2 RED CELL DISTRIBUTION WIDTH SD (test code=RDW-SD) 51.5 fL 37.0-51.0 PLATELET COUNT (test code=PLT) 308 K/mm3 150-450 MEAN PLATELET VOLUME (test code=MPV) 10.1 fL 6.7-11.0 NEUTROPHIL % (test code=NT%) 70.4 % 39.0-69.0 IMMATURE GRANULOCYTE % (test code=IG%) 0.5 % 0.0-5.0 LYMPHOCYTE % (test code=LY%) 19.6 % 25.0-55.0 MONOCYTE % (test code=MO%) 7.6 % 0.0-10.0 EOSINOPHIL % (test code=EO%) 1.4 % 0.0-5.0 BASOPHIL % (test code=BA%) 0.5 % 0.0-1.0 NUCLEATED RBC % (test code=NRBC%) 0.2 % 0-0 NEUTROPHIL # (test code=NT#) 6.47 K/mm3 1.8-7.7 IMMATURE GRANULOCYTE # (test code=IG#) 0.05 x10 3/uL 0-0.03 LYMPHOCYTE # (test code=LY#) 1.80 K/mm3 1.0-5.0 MONOCYTE # (test code=MO#) 0.70 K/mm3 0-0.8 EOSINOPHIL # (test code=EO#) 0.13 K/mm3 0.0-0.5 BASOPHIL # (test code=BA#) 0.05 K/mm3 0.0-0.2 NUCLEATED RBC # (test code=NRBC#) 0.02 K/mm3 0.0-0.1 MANUAL DIFF REQUIRED (test code=MDIFF) NO, ONLY SCAN NEEDED DIFFERENTIAL [id number] 08:24:00* Test Item Value Reference Range Comments STAIN ACCEPTABILITY (test code=STN ACCEPTABLE) CABOT RINGS (test code=CAB) MORPHOLOGY COMMENT (test code=MOC) PLATELET ESTIMATE (test code=PLTEST) PLATELET MORPHOLOGY (test code=PLTMORPH) CBC W/AUTO [id number] 08:24:00* Test Item Value Reference Range Comments WHITE BLOOD CELL (test code=WBC) 9.2 K/mm3 4.5-12.5 RED BLOOD CELL (test code=RBC) 3.17 mill/mm3 4.0-5.8 HEMOGLOBIN (test code=HGB) 7.3 gram/dL 13.0-17.5 HEMATOCRIT (test code=HCT) 25.2 % 42.0-52.0 MEAN CELL VOLUME (test code=MCV) 79.5 fL 80-98 MEAN CELL HGB (test code=MCH) 23.0 picogram 27.0-33.0 MEAN CELL HGB CONCETRATION (test code=MCHC) 29.0 gram/dL 33.0-36.0 RED CELL DISTRIBUTION WIDTH (test code=RDW) 17.8 % 11.6-16.2 RED CELL DISTRIBUTION WIDTH SD (test code=RDW-SD) 51.5 fL 37.0-51.0 PLATELET COUNT (test code=PLT) 308 K/mm3 150-450 MEAN PLATELET VOLUME (test code=MPV) 10.1 fL 6.7-11.0 NEUTROPHIL % (test code=NT%) 70.4 % 39.0-69.0 IMMATURE GRANULOCYTE % (test code=IG%) 0.5 % 0.0-5.0 LYMPHOCYTE % (test code=LY%) 19.6 % 25.0-55.0 MONOCYTE % (test code=MO%) 7.6 % 0.0-10.0 EOSINOPHIL % (test code=EO%) 1.4 % 0.0-5.0 BASOPHIL % (test code=BA%) 0.5 % 0.0-1.0 NUCLEATED RBC % (test code=NRBC%) 0.2 % 0-0 NEUTROPHIL # (test code=NT#) 6.47 K/mm3 1.8-7.7 IMMATURE GRANULOCYTE # (test code=IG#) 0.05 x10 3/uL 0-0.03 LYMPHOCYTE # (test code=LY#) 1.80 K/mm3 1.0-5.0 MONOCYTE # (test code=MO#) 0.70 K/mm3 0-0.8 EOSINOPHIL # (test code=EO#) 0.13 K/mm3 0.0-0.5 BASOPHIL # (test code=BA#) 0.05 K/mm3 0.0-0.2 NUCLEATED RBC # (test code=NRBC#) 0.02 K/mm3 0.0-0.1 MANUAL DIFF REQUIRED (test code=MDIFF) NO, ONLY SCAN NEEDED DIFFERENTIAL [id number] 08:24:00* Test Item Value Reference Range Comments STAIN ACCEPTABILITY (test code=STN ACCEPTABLE) CABOT RINGS (test code=CAB) MORPHOLOGY COMMENT (test code=MOC) PLATELET ESTIMATE (test code=PLTEST) PLATELET MORPHOLOGY (test code=PLTMORPH) CBC W/AUTO [id number] 08:24:00* Test Item Value Reference Range Comments WHITE BLOOD CELL (test code=WBC) 9.2 K/mm3 4.5-12.5 RED BLOOD CELL (test code=RBC) 3.17 mill/mm3 4.0-5.8 HEMOGLOBIN (test code=HGB) 7.3 gram/dL 13.0-17.5 HEMATOCRIT (test code=HCT) 25.2 % 42.0-52.0 MEAN CELL VOLUME (test code=MCV) 79.5 fL 80-98 MEAN CELL HGB (test code=MCH) 23.0 picogram 27.0-33.0 MEAN CELL HGB CONCETRATION (test code=MCHC) 29.0 gram/dL 33.0-36.0 RED CELL DISTRIBUTION WIDTH (test code=RDW) 17.8 % 11.6-16.2 RED CELL DISTRIBUTION WIDTH SD (test code=RDW-SD) 51.5 fL 37.0-51.0 PLATELET COUNT (test code=PLT) 308 K/mm3 150-450 MEAN PLATELET VOLUME (test code=MPV) 10.1 fL 6.7-11.0 NEUTROPHIL % (test code=NT%) 70.4 % 39.0-69.0 IMMATURE GRANULOCYTE % (test code=IG%) 0.5 % 0.0-5.0 LYMPHOCYTE % (test code=LY%) 19.6 % 25.0-55.0 MONOCYTE % (test code=MO%) 7.6 % 0.0-10.0 EOSINOPHIL % (test code=EO%) 1.4 % 0.0-5.0 BASOPHIL % (test code=BA%) 0.5 % 0.0-1.0 NUCLEATED RBC % (test code=NRBC%) 0.2 % 0-0 NEUTROPHIL # (test code=NT#) 6.47 K/mm3 1.8-7.7 IMMATURE GRANULOCYTE # (test code=IG#) 0.05 x10 3/uL 0-0.03 LYMPHOCYTE # (test code=LY#) 1.80 K/mm3 1.0-5.0 MONOCYTE # (test code=MO#) 0.70 K/mm3 0-0.8 EOSINOPHIL # (test code=EO#) 0.13 K/mm3 0.0-0.5 BASOPHIL # (test code=BA#) 0.05 K/mm3 0.0-0.2 NUCLEATED RBC # (test code=NRBC#) 0.02 K/mm3 0.0-0.1 MANUAL DIFF REQUIRED (test code=MDIFF) NO, ONLY SCAN NEEDED DIFFERENTIAL [id number] 08:24:00* Test Item Value Reference Range Comments STAIN ACCEPTABILITY (test code=STN ACCEPTABLE) MORPHOLOGY COMMENT (test code=MOC) PLATELET ESTIMATE (test code=PLTEST) PLATELET MORPHOLOGY (test code=PLTMORPH) CBC W/AUTO [id number] 08:24:00* Test Item Value Reference Range Comments WHITE BLOOD CELL (test code=WBC) 9.2 K/mm3 4.5-12.5 RED BLOOD CELL (test code=RBC) 3.17 mill/mm3 4.0-5.8 HEMOGLOBIN (test code=HGB) 7.3 gram/dL 13.0-17.5 HEMATOCRIT (test code=HCT) 25.2 % 42.0-52.0 MEAN CELL VOLUME (test code=MCV) 79.5 fL 80-98 MEAN CELL HGB (test code=MCH) 23.0 picogram 27.0-33.0 MEAN CELL HGB CONCETRATION (test code=MCHC) 29.0 gram/dL 33.0-36.0 RED CELL DISTRIBUTION WIDTH (test code=RDW) 17.8 % 11.6-16.2 RED CELL DISTRIBUTION WIDTH SD (test code=RDW-SD) 51.5 fL 37.0-51.0 PLATELET COUNT (test code=PLT) 308 K/mm3 150-450 MEAN PLATELET VOLUME (test code=MPV) 10.1 fL 6.7-11.0 NEUTROPHIL % (test code=NT%) 70.4 % 39.0-69.0 IMMATURE GRANULOCYTE % (test code=IG%) 0.5 % 0.0-5.0 LYMPHOCYTE % (test code=LY%) 19.6 % 25.0-55.0 MONOCYTE % (test code=MO%) 7.6 % 0.0-10.0 EOSINOPHIL % (test code=EO%) 1.4 % 0.0-5.0 BASOPHIL % (test code=BA%) 0.5 % 0.0-1.0 NUCLEATED RBC % (test code=NRBC%) 0.2 % 0-0 NEUTROPHIL # (test code=NT#) 6.47 K/mm3 1.8-7.7 IMMATURE GRANULOCYTE # (test code=IG#) 0.05 x10 3/uL 0-0.03 LYMPHOCYTE # (test code=LY#) 1.80 K/mm3 1.0-5.0 MONOCYTE # (test code=MO#) 0.70 K/mm3 0-0.8 EOSINOPHIL # (test code=EO#) 0.13 K/mm3 0.0-0.5 BASOPHIL # (test code=BA#) 0.05 K/mm3 0.0-0.2 NUCLEATED RBC # (test code=NRBC#) 0.02 K/mm3 0.0-0.1 MANUAL DIFF REQUIRED (test code=MDIFF) NO, ONLY SCAN NEEDED DIFFERENTIAL [id number] 08:24:00* Test Item Value Reference Range Comments STAIN ACCEPTABILITY (test code=STN ACCEPTABLE) CABOT RINGS (test code=CAB) MORPHOLOGY COMMENT (test code=MOC) PLATELET ESTIMATE (test code=PLTEST) PLATELET MORPHOLOGY (test code=PLTMORPH) [id number] 05:57:00* Test Item Value Reference Range Comments GLUBED (test code=GLUBED) 166 mg/dL 74-106 Performed by certified hyster machine operator at [facility] [id number] 04:10:00* Test Item Value Reference Range Comments PHOSPHORUS (test code=PHOS) 3.1 mg/dL 2.5-4.9 [id number] 04:10:00* Test Item Value Reference Range Comments MAGNESIUM (test code=MAG) 2.1 mg/dL 1.8-2.4 VITAMIN [id number] 04:10:00* Test Item Value Reference Range Comments VITAMIN B12 (test code=VITB12) 286 pg/mL 193-986 FOLIC [id number] 04:10:00* Test Item Value Reference Range Comments FOLIC ACID (test code=FOL) 62.6 ng/mL 3.10-17.50 THYROID PROFILE [id number] 04:10:00* Test Item Value Reference Range Comments T3 UPTAKE (test code=T3UP) 38.0 % 30.0-40.0 T4 (THYROXINE) (test code=T4) 9.2 ug/dL 4.5-13.9 T7 (FREE THYROXINE INDEX) (test code=T7) 3.49 FTI 1.3-5.1 THYROID STIMULATING HORMONE (test code=TSH) 2.450 uIU/mL 0.36-3.74 TSH REFERENCE RANGES: EUTHYROID: 0.35 - 4.3 mIU/mL HYPO : > 5.5 mIU/mL HYPER : < 0.35 mIU/mL PROTHROMBIN [id number] 03:59:00* Test Item Value Reference Range Comments PROTHROMBIN TIME PATIENT (test code=PTP) 14.3 seconds 9.0-14.0 INTERNATIONAL NORMAL RATIO (test code=INR) 1.2 0.8-1.2 The therapeutic range for oral anticoagulant therapy formost indications is an international normalized ratio (INR)of between 2.0 and 3.0. 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 YLIST ANTICOAGULANTS [id number] 03:37:00* Test Item Value Reference Range Comments GLYCOSYLATED HEMOGLOBIN (HA1C) (test code=GLYHGB) 6.9 % HbA1 4.8-6.0 ESTIMATED AVERAGE GLUCOSE (test code=EAG) 151 MG/DL LACTIC [id number] 03:31:00* Test Item Value Reference Range Comments LACTIC ACID (test code=LACT) 1.3 mmol/L 0.4-1.9 HGB [id number] 03:07:00* Test Item Value Reference Range Comments HEMOGLOBIN (test code=HGB) 7.5 gram/dL 13.0-17.5 HEMATOCRIT (test code=HCT) 25.7 % 42.0-52.0 LACTIC [id number] 00:55:00* Test Item Value Reference Range Comments LACTIC ACID (test code=LACT) 2.5 mmol/L 0.4-1.9 Results called to [id number] by [email or web address] 04/22/18 0055Critical results verified and read back by Nurse? Y FE W/TOTAL IRON BINDING CAP.2018-04-22 00:45:00* Test Item Value Reference Range Comments SERUM IRON (test code=IRON) 19 ug/dL 50-175 TOTAL IRON BINDING CAPACITY (test code=TIBC) 354 mcg/dL 250-450 IRON SATURATION (test code=FESAT) 5.37 % 13-45 - PULM VENT PERF [id number] 23:49:00 FAX: Yamile Choi MD [phone] [place]: St: [facility] FAX: Linda Tavarez [facility] [phone] Name: VICKI LEVY [facility] : 1940 Age/S: 77/M Yulissa Jordanncer lulu Unit #: [id number] Loc: [place] [address] Phys: Yamile Price MD Acct: [id number] Dis Date: Status: ADM IN PHONE #: [phone] Exam Date: 04/21/2018 2318 FAX #: [phone] Reason: Hypoxia EXAMS: CPT CODE: [id number] PULM VENT PERF IMAG 77835 LOCATION: Q15 HISTORY: 77-year-old male who presents with hypoxia. COMMENT: A nuclear medicine V/Q lung scan study was performed and compared to a chest x-ray from earlier this afternoon. The ventilation phase was obtained with 10 mCi of xeno n-133 gas. The single breath, equilibrium, and washout phases are unremark able. The lung perfusion phase was obtained with 5 mCi of techneti um labeled MAA. Lung scintigrams are then obtained in multiple projections . This examination demonstrates multiple perfusion defects throughout both lungs more pronounced in the lower right lung. IMPRESSION: The probability of a pulmonary embolism in this patient is h igh. at 7821 Re ported and signed by: Ralph Hobson M.D. CC: Yamile Price MD; Linda Tavarez Technologist: LINDA PARRISH Trnscrd Date/Time/By: 04/21/2018 (5878) : By: Walter. [email or web address] Orig Print D/T: S: 04/22/2018 (0123) PAGE 1 Signed Report LACTIC ACID 2018-04-21 20:14:00* Test Item Value Reference Range Comments LACTIC ACID (test code=LACT) 4.3 mmol/L 0.4-1.9 Results called to [id number] by V.LAB.AA 04/21/18 2013Critical results verified and read back by Nurse? Y - CT CHEST W/O [id number] 17:43:00 Name: VICKI LEVY [facility] : 1940 Age/S: 77 / M [address] [facility] Unit #: [id number] Loc: [place] [address] Phys: Pascual Rose MD Acct: [id number] Dis Date: Status: REG ER PHONE #: [phone] Exam Date: 04/21/2018 0379 FAX #: [phone] Reason: SOB EXAMS: CPT CODE: [id number] CT CHEST W/O CONTRAST [id number] REASON FOR EXAM: SOB EXAM ORDER DATE: 04/21/2018 5:17 PM Ordering Gail: Pascual Rose MD PROCEDURE: - CT CHEST W/O CONTRAST COMPARISON: 11/29/2016 FINDINGS: CT images of the chest were obtained without IV contrast. Reconstructed sagittal and coronal images of the chest were provided for interpretation. Dose modulation, iterative reconstruction, and/or weight based adjustment of the MA/KV was utilized to reduce the radiation dose to as low as reasonably achievable. The heart size is within normal limits. No evidence of pericardial effusion. The thoracic aorta is unremarkable. No evidence of dissection. No evidence of mediastinal or hilar adenopathy. No evidence of pleural effusion. IMPRESSION: Dense patchy consolidation of the superior segment of the right lower lobe. Stable appearance of the subcentimeter lesion in the right upper lobe from 12/16/2016 suggestive of a noncalcified granuloma. at 2886 Reported and signed by: Pablo Clemens M.D. CC: Pascual Rose MD Technologist:Kelsey Angel RT(R),CT; CTDI: DLP: Trnscb Date/Time: 04/21/2018 (8713) ArielVTL Orig Print D/T: S: 04/21/2018 (1740) CTDI: DLP: PAGE 1 Signed Report PROCALCITONIN (PCT)2018-04-21 17:22:00* Test Item Value Reference Range Comments PROCALCITONIN (PCT) (test code=PROCAL) 0.06 ng/ml Concentration Interpretation (ng/mL) <0.51 Sepsis is not likely. Local bacterial infection is possible. (LOW RISK for progression to Sepsis) 0.51 - 2.00 Sepsis is possible, but other conditions are known to elevate PCT as well. (MODERATE RISK for progression to Sepsis) > 2.00 Sepsis is likely, unless other causes are known. (HIGH RISK for progression to Severe Sepsis or Septic Shock) 10.00 High likelihood of Severe Sepsis or Septic or higher Shock. *Increased PCT levels may not always be related to systemic bacterial infection.*Low PCT levels do not automatically exclude the presence of bacterial infection.*All results should be interpreted taking into account the patients history. B-TYPE NATRIURETIC [id number] 17:11:00* Test Item Value Reference Range Comments B-TYPE NATRIURETIC PEPTIDE (test code=BNP) 135.37 pgram/mL 0-100 LACTIC [id number] 16:29:00* Test Item Value Reference Range Comments LACTIC ACID (test code=LACT) 4.7 mmol/L 0.4-1.9 Results called to [id number] by V.LAB.AA 04/21/18 1629Critical results verified and read back by Nurse? Y BASIC METABOLIC [id number] 16:18:00* Test Item Value Reference Range Comments SODIUM (test code=NA) 138 mmol/L 136-145 POTASSIUM (test code=K) 4.2 mmol/L 3.5-5.1 CHLORIDE (test code=CL) 106.0 mmol/L 98-107 CARBON DIOXIDE (test code=CO2) 20.0 mmol/L 21-32 ANION GAP (test code=GAP) 16.2 10-20 GLUCOSE (test code=GLU) 167 mg/dL 74-106 BLOOD UREA NITROGEN (test code=BUN) 29 mg/dL 7-18 GLOMERULAR FILTRATION RATE (test code=GFR) 49 mL/min >=60 Estimated GFR by using Modified MDRD formula.Chronic kidney disease is defined as either kidney damageor GFR <60 mL/min/1.73 m2 for >3 months. CREATININE (test code=CREAT) 1.40 mg/dL 0.7-1.3 BUN/CREATININE RATIO (test code=BUN/CREA) 20.0 10-20 CALCIUM (test code=CA) 9.1 mg/dL 8.5-10.1 HEPATIC FUNCTION [id number] 16:18:00* Test Item Value Reference Range Comments TOTAL PROTEIN (test code=PROT) 8.6 gram/dL 6.4-8.2 ALBUMIN (test code=ALB) 3.4 g/dL 3.4-5.0 GLOBULIN (test code=GLOB) 5.2 gram/dL 2.7-4.2 ALBUMIN/GLOBULIN RATIO (test code=A/G) 0.7 0.75-1.50 BILIRUBIN TOTAL (test code=BILT) 0.40 mg/dL 0.0-1.0 BILIRUBIN DIRECT (test code=BILD) 0.11 mg/dL 0.0-0.20 SGOT/AST (test code=AST) 9 IUnit/L 15-37 SGPT/ALT (test code=ALT) 18 IUnit/L 12-78 ALKALINE PHOSPHATASE TOTAL (test code=ALKP) 116 IUnit/L 45-117 Note change in reference range due to change in reagent. [id number] 16:18:00* Test Item Value Reference Range Comments LIPASE (test code=LIP) 156 U/L 73.0-393.0 [id number] 16:18:00* Test Item Value Reference Range Comments MAGNESIUM (test code=MAG) 2.3 mg/dL 1.8-2.4 [id number] 16:18:00* Test Item Value Reference Range Comments TROPONIN-I (test code=TROPI) <0.015 ng/mL 0-0.045 PROTHROMBIN [id number] 16:15:00* Test Item Value Reference Range Comments PROTHROMBIN TIME PATIENT (test code=PTP) 12.1 seconds 9.0-14.0 INTERNATIONAL NORMAL RATIO (test code=INR) 1.0 0.8-1.2 The therapeutic range for oral anticoagulant therapy formost indications is an international normalized ratio (INR)of between 2.0 and 3.0. 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 NTHROMBOPLASTIN TIME [id number] 16:15:00* Test Item Value Reference Range Comments THROMBOPLASTIN TIME PARTIAL (test code=PTT) 30.1 seconds 25.0-36.5 IS PATIENT ON ANTICOAGULANTS? NBASIC METABOLIC [id number] 16:04:00* Test Item Value Reference Range Comments SODIUM (test code=NA) 138 mmol/L 136-145 POTASSIUM (test code=K) 4.2 mmol/L 3.5-5.1 CHLORIDE (test code=CL) 106.0 mmol/L 98-107 CARBON DIOXIDE (test code=CO2) mmol/L 21-32 ANION GAP (test code=GAP) 10-20 GLUCOSE (test code=GLU) mg/dL 74-106 BLOOD UREA NITROGEN (test code=BUN) mg/dL 7-18 GLOMERULAR FILTRATION RATE (test code=GFR) mL/min >=60 CREATININE (test code=CREAT) mg/dL 0.7-1.3 BUN/CREATININE RATIO (test code=BUN/CREA) 10-20 CALCIUM (test code=CA) mg/dL 8.5-10.1 HEPATIC FUNCTION [id number] 16:04:00* Test Item Value Reference Range Comments TOTAL PROTEIN (test code=PROT) gram/dL 6.4-8.2 ALBUMIN (test code=ALB) g/dL 3.4-5.0 GLOBULIN (test code=GLOB) gram/dL 2.7-4.2 ALBUMIN/GLOBULIN RATIO (test code=A/G) 0.75-1.50 BILIRUBIN TOTAL (test code=BILT) mg/dL 0.0-1.0 BILIRUBIN DIRECT (test code=BILD) mg/dL 0.0-0.20 SGOT/AST (test code=AST) IUnit/L 15-37 SGPT/ALT (test code=ALT) IUnit/L 12-78 ALKALINE PHOSPHATASE TOTAL (test code=ALKP) IUnit/L 45-117 [id number] 16:04:00* Test Item Value Reference Range Comments LIPASE (test code=LIP) U/L 73.0-393.0 [id number] 16:04:00* Test Item Value Reference Range Comments MAGNESIUM (test code=MAG) mg/dL 1.8-2.4 [id number] 16:04:00* Test Item Value Reference Range Comments TROPONIN-I (test code=TROPI) ng/mL 0-0.045 - XR CHEST 1 [id number] 15:58:00 FAX: Pascual Shepherd [phone] [place]: St: REG Name: VICKI HORAN [facility] : [birth year] Age/S: 77/M [address] [facility] Unit #: [id number] Loc: [place] [address] Phys: Pascual Rose MD Acct: [id number] Dis Date: Status: REG ER PHONE #: [phone] Exam Date: 04/21/2018 1555 FAX #: [phone] Reason: WEAKNESS EXAMS: CPT CODE: [id number] XR CHEST 1 V [id number] REASON FOR EXAM: WEAKNESS EXAM ORDER DATE: 04/21/2018 3:23 PM Ordering Gail: Pascual Rose MD PROCEDURE: - XR CHEST 1 V JOSEPH RISON: 11/29/2016 FINDINGS: Portable AP frontal view of the chest obtained at 3:52 PM shows clear lungs without evidence of consolidation. There is no evidence of effusion. The heart size is minimally enlarged. Pu lmonary vasculatures are unremarkable. IMPRESSION: No act christina disease. at 9290 Reported and signed by: Pablo Clemens M.D. CC: Pascual Rose MD Technologist: ROSHNI BLAND; Dulce Maria Pickett [facility] Date/Time/By: 04/21/2018 (4763) : By: ArielVTL Orig Print D/T: S: 04/21/2018 (8041) PAGE 1 Signed Report CBC W/O [id number] 15:56:00* Test Item Value Reference Range Comments WHITE BLOOD CELL (test code=WBC) 10.5 K/mm3 4.5-12.5 RED BLOOD CELL (test code=RBC) 3.71 mill/mm3 4.0-5.8 HEMOGLOBIN (test code=HGB) 8.4 gram/dL 13.0-17.5 HEMATOCRIT (test code=HCT) 29.4 % 42.0-52.0 MEAN CELL VOLUME (test code=MCV) 79.2 fL 80-98 MEAN CELL HGB (test code=MCH) 22.6 picogram 27.0-33.0 MEAN CELL HGB CONCETRATION (test code=MCHC) 28.6 gram/dL 33.0-36.0 RED CELL DISTRIBUTION WIDTH (test code=RDW) 17.6 % 11.6-16.2 PLATELET COUNT (test code=PLT) 344 K/mm3 150-450 MEAN PLATELET VOLUME (test code=MPV) 9.5 fL 6.7-11.0 POC LACTIC [id number] 15:45:00* Test Item Value Reference Range Comments POC LACTIC ACID (test code=POCLAC) 4.43 MMOL/L 0.4-2.2 CHEST SINGLE (PORTABLE) [facility] [address] [place] [address] Patient Name: VICKI LEVY MR #: [id number] : 1940 Age/Sex: 76/M Req #: [id number] Adm Physician: Ordered by: GABRIELLA BOOKER MD Report #: [id number] Location: ER Room/Bed: Procedure: [id number] DX/CHEST SINGLE (PORTABLE ) Exam Date: 12/18/16 Exam Time: 1225 REPORT S TATUS: Signed PROCEDURE: A single AP view of the chest. COMPARISON: N one. INDICATIONS: SHORTNESS OF BREATH, LOW BLOOD PRESSURE, HIGH HEART RA TE FINDINGS: Lines/tubes: None. Lungs: The lungs are moderat farrukh inflated without focal consolidation. Central pulmonary venous congestion . Pleura: There is no pleural effusion or pneumothorax. Heart and mediastinum: The cardiac silhouette is borderline enlarged, accentuated by t echnique and lung volumes. Bones: No acute bony abnormality. Upper abdomen: No free air under the diaphragm. IMPRESSION: Borderline enlarg ement of the cardiac silhouette with central pulmonary venous congestion. Dictated by: Parminder Bonds M.D. on 12/18/2016 at 12:48 Electron ically approved by: Parminder Bonds M.D. on 12/18/2016 at 12:48 Dictated By: PARMINDER BONDS MD 1248 Transcribed By: GAETANO on 12/18/16 1248 COPY TO: JUSTICE BOOKER MD
[2018-09-01 11:32] LABS: INR 1.14; PROTHROMBIN TIME 15.2 seconds (11.9-14.5)
[2018-09-01 11:33] LABS: PARTIAL THROMBOPLASTIN TIME 30.5 seconds (23.8-35.5)
[2018-09-01 13:00] VITALS: BP 131/67
== END | disposition home or self-care (01) ==
LOC: OR 09:44
PROVIDERS: ATTEND Ophthalmology
DX: H25.11 Age-related nuclear cataract, right eye (principal); G47.33 Obstructive sleep apnea (adult) (pediatric); I10 Essential (primary) hypertension; I48.91 Unspecified atrial fibrillation; E11.9 Type 2 diabetes mellitus without complications; K21.9 Gastro-esophageal reflux disease without esophagitis; E78.00 Pure hypercholesterolemia, unspecified; Z88.0 Allergy status to penicillin; Z88.1 Allergy status to other antibiotic agents; Z79.01 Long term (current) use of anticoagulants; Z79.84 Long term (current) use of oral hypoglycemic drugs; Z79.4 Long term (current) use of insulin
CPT/HCPCS: 36415; 66984; 82948; 85610; 85730; J2250; J3010; V2632

== ENCOUNTER → 2018-09-22 | Day surgery (SDC) | payer MEDICARE, OTHER ==
[2018-09-08 14:14] LABS: BASOPHILS # (AUTO) 0.1 (0.0-0.1); BASOPHILS % 0.7 % (0.0-1.0); EOSINOPHILS # (AUTO) 0.1 (0.0-0.4); EOSINOPHILS % 1.7 % (0.0-6.0); HEMOGLOBIN 12.3 g/dL (14.0-18.0); LYMPHOCYTES # (AUTO) 3.2 (1.0-3.2); MEAN CORPUSCULAR HEMOGLOBIN 26.2 pg (28-32); MEAN CORPUSCULAR HGB CONC 31.5 g/dL (31-35); MONOCYTES # (AUTO) 0.8 (0.2-0.8); MONOCYTES % 12.1 % (4.4-11.3); NEUTROPHILS # (AUTO) 2.7 (2.1-6.9); NEUTROPHILS % 39.2 % (38.7-80.0); PLATELET COUNT 270 x10e3/uL (140-360); RED CELL DISTRIBUTION WIDTH 15.7 % (11.7-14.4)
[~2018-09-22] MED LIST changes: -FENTANYL CITRATE/PF 100MCG/2 ML INJ ONE
--- OUTSIDE RECORDS SUMMARY | 2018-09-22 09:21 | XMS REPORT | Continuity of Care Document ---
Author Author [employer] Organization [employer] Address Unknown Phone Unavailable Care Team Providers Care [employer] Specialist Name Role Phone PreApps Information 6Wunderkinder Unavailable Unavailable Problems Problem Status Onset Date Classification Date Reported Comments Source SPLIT NIGHT 21393 Active 12/29/2016 [facility] CPAP-86570 Active 05/12/2015 [facility] FIRST NIGHT-82120 Active 04/07/2015 [facility] OBSTRUCTIVE SLEEP APNEA (ADULT) (PEDIATR Active [facility] Medications No Data Provided for This [...] Provider ADM Date DC Date Status Source [facility] Outpatient [id number] Non Physician 04/12/2015 04/12/2015 [facility] Outpatient [id number] Stephen Bryan 05/14/2015 05/14/2015 [facility] Outpatient [id number] Stephen Randi 01/02/2017 01/02/2017 [facility] Procedures No Data Provided for This Section Assessment and Plan No Data Provided for This Section Plan of Care No Data Provided for This Section Social History Social History Date Source No data available for this section 01/02/2017 [facility] Family History No Data Provided for This Section Advance Directives No Data Provided for This Section Functional Status No Data Provided for This Section
[2018-09-22 10:35] LABS: INR 1.05; PROTHROMBIN TIME 14.2 seconds (11.9-14.5)
[2018-09-22 10:36] LABS: PARTIAL THROMBOPLASTIN TIME 29.6 seconds (23.8-35.5)
[2018-09-22 12:10] VITALS: BP 112/67
== END | disposition home or self-care (01) ==
LOC: OR 09:11
PROVIDERS: ATTEND Ophthalmology
DX: H25.12 Age-related nuclear cataract, left eye (principal); G47.33 Obstructive sleep apnea (adult) (pediatric); E11.9 Type 2 diabetes mellitus without complications; K21.9 Gastro-esophageal reflux disease without esophagitis; I10 Essential (primary) hypertension; Z88.1 Allergy status to other antibiotic agents; Z88.2 Allergy status to sulfonamides; Z01.812 Encounter for preprocedural laboratory examination; Z79.01 Long term (current) use of anticoagulants; Z79.84 Long term (current) use of oral hypoglycemic drugs; Z79.4 Long term (current) use of insulin; Z87.01 Personal history of pneumonia (recurrent); Z86.718 Personal history of other venous thrombosis and embolism
CPT/HCPCS: 36415 ×2; 66984; 82948; 85025; 85610; 85730; J2250; V2632